=== PATIENT | female | born 1955 | race Caucasian/White ===

== ENCOUNTER 2016-09-03 14:38 | Emergency (ER) | payer MEDICAID ==
--- NOTE | 2016-09-03 14:54 | EDPHY ---
H & P Time Seen by Provider: 09/03/16 14:45 Constitutional: Initial Vital Signs Temperature (C) 37.2 C 09/03/16 14:50 Heart Rate 102 H 09/03/16 14:50 Respiratory Rate 22 H 09/03/16 14:50 Blood Pressure 147/104 H 09/03/16 14:50 O2 Sat (%) 98 09/03/16 14:50 O2 Delivery Mode Room Air O2 (L/minute) 2 Allergies/Adverse Reactions: benztropine [From Cogentin] Allergy (Verified 09/03/16 14:46) codeine Allergy (Verified 09/03/16 14:46) iodine Allergy (Verified 09/03/16 14:46) morphine Allergy (Verified 09/03/16 14:46) Penicillins Allergy (Verified 09/03/16 14:46) Sulfa (Sulfonamide Antibiotics) Allergy (Verified 09/03/16 14:46) Home Medications: Medication Instructions Recorded Albuterol 09/03/16 Albuterol [Proventil Inhaler] 1 - 2 puffs IH Q4 #1 mdi 09/03/16 Aspirin 325 mg (*) 09/03/16 Atorvastatin Calcium 09/03/16 Combivent Respimat Inhal [place](*) 09/03/16 Cymbalta 09/03/16 FOLIC ACID 09/03/16 Hydrocodone Bit/Acetaminophen 09/03/16 LORazepam 09/03/16 Lipitor 09/03/16 MAGNESIUM 09/03/16 Metoprolol Succinate 09/03/16 Seroquel 09/03/16 Symbicort 160-4.5 Mcg Inh (*) 09/03/16 predniSONE 40 mg PO DAILY #10 tab 09/03/16 Medical Decision Making - Diagnostics Imaging Results: Imaging Impressions Chest X-Ray 09/03/16 15:03 Impression: 1. No active cardiopulmonary disease seen. 2. Hyperexpanded lungs suggestive of mild COPD. Knee X-Ray 09/03/16 15:04 Impression: Normal left knee series. Imaging: Discussed imaging studies w/ call center associate Radiologist, I viewed and interpreted images myself ED Course/Re-evaluation: CHIEF COMPLAINT: Dyspnea HISTORY OF PRESENT ILLNESS: The patient is a 60 y/o female, with a history of COPD, complaining of worsening dyspnea today with exertion. She says her chronic conditions are generally managed by hospitalists and her most recent admission was at [facility] ([place], [place]). She tapered off a 2-month course of prednisone as well as antibiotics week ago. Today, she was playing with children and began to feel more out of breath than normal. She used her nebulizer without improvement so she went to use her O2, but found her tank was empty. She called a nursing line and was instructed to call 911 for help. EMS reports she was 95% on room air for them. She believes she still has a respiratory infection, but has been too weak and short of breath to even cough. She also notes she fell last night and her left knee is still hurting. She is able to walk, but with pain. REVIEW OF SYSTEMS: A 10 point review of systems was performed and is negative with the exception of the elements mentioned in the history of present illness. PHYSICAL EXAM: HR, BP, O2 Sat, RR. Temp noted General Appearance: Alert, well hydrated, Julio Cesar appearance, appropriate, and non-toxic appearing. Head: Atraumatic without scalp tenderness or obvious injury Eyes: Pupils equal, round, reactive to light and accommodation, EOMI, no trauma , no injection. Nose: Atraumatic, no rhinorrhea, clear. Throat: mucus membranes moist. Neck: Supple, nontender, no lymphadenopathy. Respiratory: Lungs very tight and diminished in all villanueva. Slight expiratory wheezing. Cardiovascular: Regular rate and rhythm, no murmurs, rubs, or gallops. Good capillary refill all extremities. Gastrointestinal: Abdomen is soft, nontender, non-distended, no masses, no rebound, no guarding, no peritoneal signs. Musculoskeletal: Normal active ROM of all extremities, atraumatic. Neurological: Alert, appropriate, and interactive. Nonfocal neuro exam. Skin: No rashes, good turgor, no nodules on palpation. Ecchymosis to extremities. Abrasion left knee. Past medical history: COPD, [employer] supplies O2 and usually uses 3LPM at night or with exertion. Past surgical history: Denies Family history: Noncontributory Social history: Currently staying in safe house, recently in [place]. PCP: Concepción Baldwin in [place] DIAGNOSTICS/PROCEDURES/CRITICAL CARE TIME: The 12 lead EKG was interpreted by myself. Sinus rhythm rate 99. See hard copy and/or "tracemaster" electronic copy for interpretation. Chest x-ray: COPD. No infiltrate. Left knee x-ray: Negative for fracture. DIFFERENTIAL DIAGNOSIS: The differential diagnosis for the patient's shortness of breath and hypoxemia included but was not limited to pneumonia, myocardial infarction, acute mountain sickness, high altitude pulmonary edema, congestive heart failure, and pulmonary embolus. MEDICAL DECISION MAKING: This is a 60 y/o female with a history of COPD and long-term prednisone use who presents with acute COPD exacerbation. She has some complicating social situation as she is currently living in a safe house and does not seem to have a regular physician that monitors her COPD. Plan for IV, labs, chest x-ray, knee x-ray, and symptom management. Duo neb, Heliox neb, 10mg IV Decadron administered. 1545: Reassessed patient and discussed work up thus far. Chest x-ray shows COPD. EKG unremarkable. Knee x-ray unremarkable. She is feeling improved while on Heliox neb and smiling. She is moving air well on repeat lung exam. Will continue to monitor for improvement. 1620: Patient is 88% on room air. Will monitor for improvement in hypoxemia and work on procuring outpatient O2 supplies for her. Staff has been able to arrange home O2 for the patient. She is feeling improved and ready to go home. She is saturating at 99% on a few LPM. She feels safe to go home on continuous O2 until pulmonology follow up. She understands she needs to follow up with pulmonology without fail next week. We will resume her prednisone course and albuterol inhaler as well. Long-term, I believe this patient needs to be on inhaled steroids rather than so many oral steroids to better manage her COPD. - Data Points Laboratory Results: Laboratory Results 09/03/16 15:41 09/03/16 15:41 09/03/16 09/03/16 15:41 15:41 WBC 18.04 10^3/uL H 10^3/uL (3.80-9.50) RBC 3.94 10^6/uL L 10^6/uL (4.18-5.33) Hgb 12.2 g/dL L g/dL (12.6-16.3) Hct 37.5 % L % (38.0-47.0) MCV 95.2 fL fL (81.5-99.8) MCH 31.0 pg pg (27.9-34.1) MCHC 32.5 g/dL g/dL (32.4-36.7) RDW 13.1 % % (11.5-15.2) Plt Count 267 10^3/uL 10^3/uL (150-400) MPV 9.5 fL fL (8.7-11.7) Neut % (Auto) 69.2 % % (39.3-74.2) Lymph % (Auto) 21.8 % % (15.0-45.0) [place] % (Auto) 6.7 % % (4.5-13.0) Eos % (Auto) 0.6 % % (0.6-7.6) Baso % (Auto) 0.5 % % (0.3-1.7) Nucleat RBC Rel Count 0.0 % % (0.0-0.2) Absolute Neuts (auto) 12.49 10^3/uL H 10^3/uL (1.70-6.50) Absolute Lymphs (auto) 3.94 10^3/uL H 10^3/uL (1.00-3.00) Absolute Monos (auto) 1.21 10^3/uL H 10^3/uL (0.30-0.80) Absolute Eos (auto) 0.10 10^3/uL 10^3/uL (0.03-0.40) Absolute Basos (auto) 0.09 10^3/uL 10^3/uL (0.02-0.10) Absolute Nucleated RBC 0.00 10^3/uL 10^3/uL (0-0.01) Immature Gran % 1.2 % H % (0.0-1.1) Immature Gran # 0.21 10^3/uL H 10^3/uL (0.00-0.10) Sodium 138 mEq/L mEq/L (134-144) Potassium 4.3 mEq/L mEq/L (3.5-5.2) Chloride 101 mEq/L mEq/L (97-110) Carbon Dioxide 25 mEq/l mEq/l (22-31) Anion Gap 12 mEq/L mEq/L (8-16) BUN 16 mg/dL mg/dL (7-23) Creatinine 0.9 mg/dL mg/dL (0.6-1.0) Estimated GFR > 60 Glucose 101 mg/dL H mg/dL (70-100) Calcium 9.1 mg/dL mg/dL (8.5-10.4) Troponin I < 0.012 ng/mL ng/mL (0-0.034) NT-Pro-B Natriuret Pep 48 pg/mL pg/mL (0-125) Medications Given: Discontinued Medications Albuterol/Ipratropium (Duoneb) 3 ml IH EDNOW ONE Stop: 09/03/16 15:03 Last Admin: 09/03/16 15:48 Dose: 3 ml Dexamethasone (Decadron Injection) 10 mg IVP EDNOW ONE Stop: 09/03/16 15:07 Last Admin: 09/03/16 15:48 Dose: 10 mg Ketorolac Tromethamine (Toradol) 30 mg IM EDNOW ONE Stop: 09/03/16 15:50 Last Admin: 09/03/16 15:50 Dose: 30 mg Ondansetron HCl (Zofran) 4 mg IVP EDNOW ONE Stop: 09/03/16 15:50 Last Admin: 09/03/16 16:26 Dose: 4 mg Departure - Departure Disposition: Home, Routine, Self-Care Clinical Impression: Chronic obstructive pulmonary disease with acute exacerbation Condition: Good Instructions: Albuterol (By breathing), COPD (Chronic Obstructive Pulmonary Disease) (ED) Additional Instructions: 1. Take prednisone as prescribed. 2. Use albuterol inhaler as prescribed for shortness of breath and cough. 2. Stay on home O2 day and night until follow up with pulmonology. 3. Follow up with Dr. Robins, special forces engineer sergeant, next week without fail. 4. Return to the ED for any worsening of condition. Referrals: Patient,NotPresent [Unknown] - As per Instructions Aditya Robins MD [Medical Doctor] - As per Instructions Prescriptions: Albuterol [Proventil Inhaler] 1 - 2 puffs IH Q4 #1 mdi predniSONE 40 mg PO DAILY #10 tab Report Scribed for: Sheldon Nicole Report Scribed by: Annamarie Egan Date of Report: 09/03/16 Time of Report: 15:15
[2016-09-03 14:55] VITALS: TEMP 99
[2016-09-03] MEDS ORDERED: IPRATROPIUM/ALBUTEROL 3 ML DEYVIAL IH ONE (15:02)
[2016-09-03] MEDS ORDERED: DEXAMETHASONE 10 MG/ML VIAL IVP ONE (15:06)
--- NOTE | 2016-09-03 15:34 | CPEKG ---
Heart Rate: 99 RR Interval: 606 P-R Interval: 136 QRSD Interval: 88 QT Interval: 336 QTC Interval: 432 P Brady: 46 QRS Brady: 44 T Wave Brady: 64 EKG Severity - NORMAL ECG - EKG Impression: SINUS RHYTHM Electronically Signed By: Sheldon Nicole 03-Sep-2016 20:38:36
[2016-09-03] MEDS ORDERED: ONDANSETRON 4 MG/2 ML VIAL IVP ONE (15:49)
[2016-09-03] MEDS ORDERED: KETOROLAC 30 MG/1 ML SDV IM ONE (15:49)
[2016-09-03 15:53] LABS: % IMMATURE GRANULYOCYTES 1.2 % (0.0-1.1); ABSOLUTE IMMATURE GRANULOCYTES 0.21 10^3/uL (0.00-0.10); ADD DIFF? NO; ADD MORPH? NO; ADD SCAN? NO; ATYPICAL LYMPHOCYTE FLAG 0 (0-99); FRAGMENT RBC FLAG 0 (0-99); HEMATOCRIT 37.5 % (38.0-47.0); HEMOGLOBIN 12.2 g/dL (12.6-16.3); LEFT SHIFT FLG 10 (0-99); LIPEMIA HEMOLYSIS FLAG 80 (0-99); MEAN CELL HEMOGLOBIN CONCENTR. 32.5 g/dL (32.4-36.7); MEAN CELL VOLUME 95.2 fL (81.5-99.8); MEAN PLATELET VOLUME 9.5 fL (8.7-11.7); PLATELET CLUMPS FLAG 0 (0-99); PLATELET COUNT 267 10^3/uL (150-400); RED BLOOD CELL COUNT 3.94 10^6/uL (4.18-5.33); RED CELL DISTRIBUTION WIDTH 13.1 % (11.5-15.2)
[2016-09-03 16:02] LABS: ANION GAP 12 mEq/L (8-16); CALCIUM 9.1 mg/dL (8.5-10.4); CARBON DIOXIDE 25 mEq/l (22-31); CHLORIDE 101 mEq/L (97-110); CREATININE 0.9 mg/dL (0.6-1.0); GLOMERULAR FILTRATION RATE > 60; GLUCOSE 101 mg/dL (70-100); POTASSIUM 4.3 mEq/L (3.5-5.2); SODIUM 138 mEq/L (134-144)
[2016-09-03 16:14] LABS: TROPONIN I < 0.012 ng/mL (0-0.034)
[2016-09-03] MEDS ORDERED: IPRATROPIUM/ALBUTEROL 3 ML DEYVIAL ONE (17:00)
[2016-09-03 19:52] VITALS: BP 140/90; PULSE 102; RESP 18; O2SAT 93
== END 2016-09-03 19:51 | disposition home or self-care (01) ==
LOC: EDUNIT#
DX: J44.1 Chronic obstructive pulmonary disease with (acute) exacerbation (principal); Z79.82 Long term (current) use of aspirin
CPT/HCPCS: 96374; J1885; J2405

== ENCOUNTER 2016-09-04 15:48 | Observation (INO) | payer MEDICAID ==
--- NOTE | 2016-09-04 16:04 | EDPHY ---
H & P Time Seen by Provider: 09/04/16 15:48 HPI/ROS: CHIEF COMPLAINT: The shortness of breath HISTORY OF PRESENT ILLNESS: The patient is a 60-year-old female who presents to the emergency department with shortness of breath. Patient has a history of COPD and coronary artery disease with previous NV. The patient states she was having shortness of breath yesterday. She was seen in the emergency department and discharged home. There is post to deliver oxygen to her house but it never came. She smoked a cigarette earlier today and then developed shortness of breath. She felt tight and noted significant wheezing. She took 2 inhaler treatments with no relief. EMS was called. EMS found the patient with shortness of breath and poor air movement. They treated the patient with a DuoNeb followed by an albuterol neb. She was given Solu-Medrol 125 mg IV. She was placed on CPAP. Patient states that she feels better on CPAP. She denies fevers or chills. She has had a mild nonproductive cough. No leg pain or swelling. No chest pain. REVIEW OF SYSTEMS: My complete review of systems is negative except as mentioned in the HPI. Past Medical/Surgical History: Includes COPD, ACS, acute NV Smoking Status: Former smoker Physical Exam: Vitals noted GENERAL: Moderate acute distress, alert. CPAP in place. Obese. HEENT: Eyes normal to inspection, normal pharynx, no signs of dehydration. NECK: No thyromegaly, no lymphadenopathy, supple. RESPIRATORY: Poor air movement. Minimal wheeze. No rales or rhonchi. Positive accessory muscle use. CPAP in place. CVS: Regular rate and rhythm, no rubs, murmurs, or gallops. ABDOMEN: Soft, nontender, nondistended, no organomegaly. BACK: Normal to inspection, no CVA tenderness. SKIN: Normal color, no rash, warm, dry. No pallor. EXTREMITIES: No pedal edema, no calf tenderness, no Homans sign or cords, no joint swelling. NEURO/PSYCH: Alert and oriented, normal mood and affect, no focal deficits Constitutional: Initial Vital Signs Temperature (C) 36.5 C 09/04/16 15:48 Heart Rate 104 H 09/04/16 15:48 Respiratory Rate 22 H 09/04/16 15:48 Blood Pressure 141/70 H 09/04/16 15:48 O2 Sat (%) 95 09/04/16 15:48 O2 Delivery Mode Room Air Allergies/Adverse Reactions: benztropine [From Cogentin] Allergy (Verified 09/04/16 15:57) codeine Allergy (Verified 09/04/16 15:57) iodine Allergy (Verified 09/04/16 15:57) morphine Allergy (Verified 09/04/16 15:57) Penicillins Allergy (Verified 09/04/16 15:57) Sulfa (Sulfonamide Antibiotics) Allergy (Verified 09/04/16 15:57) Home Medications: Medication Instructions Recorded Albuterol 09/03/16 Albuterol [Proventil Inhaler] 1 - 2 puffs IH Q4 #1 mdi 09/03/16 Aspirin 325 mg (*) 09/03/16 Atorvastatin Calcium 09/03/16 Combivent Respimat Inhal [place](*) 09/03/16 Cymbalta 09/03/16 FOLIC ACID 09/03/16 Hydrocodone Bit/Acetaminophen 09/03/16 LORazepam 09/03/16 Lipitor 09/03/16 MAGNESIUM 09/03/16 Metoprolol Succinate 09/03/16 Seroquel 09/03/16 Symbicort 160-4.5 Mcg Inh (*) 09/03/16 predniSONE 40 mg PO DAILY #10 tab 09/03/16 Medical Decision Making ED Course/Re-evaluation: In the emergency department I met EMS on arrival. I took report from the building maintenance technician. My initial evaluation of the patient she stated the CPAP improved her symptoms. She was kept on CPAP during my initial evaluation. RT was paged. Upon arrival the patient was placed on BiPAP. She was continued on albuterol neb. 16 15: The patient is tolerating BiPAP well. She states she is feeling better. Her BiPAP is set at 12/6 at 45% O2 Sinus rhythm at 97. Normal axis. Normal intervals. No ST or T-wave abnormality. I reviewed the patient's previous medical record and visit from yesterday. 16 30: I reviewed the patient's laboratory studies. Her white count was elevated at 25. She is anemic with hematocrit of 36. Chemistry is unremarkable. I rechecked the patient. Patient was tolerating BiPAP well. Rechecked the patient on numerous occasions. She was tolerating BiPAP well. 17 30: I have discussion with the patient, we will attempt a trial off BiPAP. I discussed the case with Dr. Shay Arora for admission. Differential Diagnosis: My differential includes but is not limited to COPD exacerbation, asthma exacerbation, CHF, ACS, acute NV, pneumonia, pneumothorax, bronchitis Critical Care Time: Patient required 35 minutes of critical care time. This was exclusive of any unbundled procedure. This was due to frequent rechecks, need for bipap, time spent at the bedside. - Data Points Laboratory Results: Laboratory Results 09/04/16 16:05 09/04/16 16:05 09/04/16 09/04/16 16:05 16:05 WBC 25.75 10^3/uL H 10^3/uL (3.80-9.50) RBC 3.82 10^6/uL L 10^6/uL (4.18-5.33) Hgb 11.9 g/dL L g/dL (12.6-16.3) Hct 36.4 % L % (38.0-47.0) MCV 95.3 fL fL (81.5-99.8) MCH 31.2 pg pg (27.9-34.1) MCHC 32.7 g/dL g/dL (32.4-36.7) RDW 13.3 % % (11.5-15.2) Plt Count 274 10^3/uL 10^3/uL (150-400) MPV 9.6 fL fL (8.7-11.7) Neut % (Auto) 86.3 % H % (39.3-74.2) Lymph % (Auto) 7.7 % L % (15.0-45.0) [place] % (Auto) 4.8 % % (4.5-13.0) Eos % (Auto) 0.0 % L % (0.6-7.6) Baso % (Auto) 0.2 % L % (0.3-1.7) Nucleat RBC Rel Count 0.0 % % (0.0-0.2) Absolute Neuts (auto) 22.25 10^3/uL H 10^3/uL (1.70-6.50) Absolute Lymphs (auto) 1.97 10^3/uL 10^3/uL (1.00-3.00) Absolute Monos (auto) 1.23 10^3/uL H 10^3/uL (0.30-0.80) Absolute Eos (auto) 0.00 10^3/uL L 10^3/uL (0.03-0.40) Absolute Basos (auto) 0.04 10^3/uL 10^3/uL (0.02-0.10) Absolute Nucleated RBC 0.00 10^3/uL 10^3/uL (0-0.01) Immature Gran % 1.0 % % (0.0-1.1) Immature Gran # 0.26 10^3/uL H 10^3/uL (0.00-0.10) Sodium 140 mEq/L mEq/L (134-144) Potassium 5.2 mEq/L mEq/L (3.5-5.2) Chloride 105 mEq/L mEq/L (97-110) Carbon Dioxide 23 mEq/l mEq/l (22-31) Anion Gap 12 mEq/L mEq/L (8-16) BUN 22 mg/dL mg/dL (7-23) Creatinine 1.0 mg/dL mg/dL (0.6-1.0) Estimated GFR 57 Glucose 146 mg/dL H mg/dL (70-100) Calcium 9.3 mg/dL mg/dL (8.5-10.4) Troponin I < 0.012 ng/mL ng/mL (0-0.034) NT-Pro-B Natriuret Pep 204 pg/mL H pg/mL (0-125) Departure - Departure Disposition: [facility] Inpatient Acute Clinical Impression: Shortness of breath, COPD exacerbation, Leukocytosis Condition: Good Referrals: Patient,NotPresent [Unknown] - As per Instructions
--- NOTE | 2016-09-04 16:11 | CPEKG ---
Heart Rate: 97 RR Interval: 619 P-R Interval: 136 QRSD Interval: 80 QT Interval: 348 QTC Interval: 442 P Fontana: 47 QRS [place]: 45 T Wave [place]: 64 EKG Severity - NORMAL ECG - EKG Impression: SINUS RHYTHM Electronically Signed By: Nidia No 04-Sep-2016 22:31:52
[2016-09-04 16:16] LABS: ABSOLUTE IMMATURE GRANULOCYTES 0.26 10^3/uL (0.00-0.10); ADD DIFF? NO; ADD MORPH? NO; ADD SCAN? NO; ATYPICAL LYMPHOCYTE FLAG 0 (0-99); FRAGMENT RBC FLAG 0 (0-99); HEMATOCRIT 36.4 % (38.0-47.0); HEMOGLOBIN 11.9 g/dL (12.6-16.3); LEFT SHIFT FLG 0 (0-99); LIPEMIA HEMOLYSIS FLAG 80 (0-99); MEAN CELL HEMOGLOBIN 31.2 pg (27.9-34.1); MEAN CELL HEMOGLOBIN CONCENTR. 32.7 g/dL (32.4-36.7); MEAN CELL VOLUME 95.3 fL (81.5-99.8); MEAN PLATELET VOLUME 9.6 fL (8.7-11.7); PLATELET CLUMPS FLAG 0 (0-99); PLATELET COUNT 274 10^3/uL (150-400); RED BLOOD CELL COUNT 3.82 10^6/uL (4.18-5.33); RED CELL DISTRIBUTION WIDTH 13.3 % (11.5-15.2)
[2016-09-04] MEDS ORDERED: ALBUTEROL 3 ML DEYVIAL ONE (16:21)
[2016-09-04 16:29] LABS: ANION GAP 12 mEq/L (8-16); CALCIUM 9.3 mg/dL (8.5-10.4); CARBON DIOXIDE 23 mEq/l (22-31); CHLORIDE 105 mEq/L (97-110); GLOMERULAR FILTRATION RATE 57; GLUCOSE 146 mg/dL (70-100); POTASSIUM 5.2 mEq/L (3.5-5.2); SODIUM 140 mEq/L (134-144)
[2016-09-04 16:41] LABS: TROPONIN I < 0.012 ng/mL (0-0.034)
[2016-09-04] MEDS ORDERED: ACETAMINOPHEN 325 MG TAB PO PRN (18:10)
[2016-09-04] MEDS ORDERED: ONDANSETRON 4 MG/2 ML VIAL IVP PRN (18:10)
--- NOTE | 2016-09-04 19:09 | GHP ---
[f rep st] HISTORY AND PHYSICAL DATE OF ADMISSION: 09/04/2016 CHIEF COMPLAINT: Shortness of breath and wheezing. HPI: This is a 60-year-old female with history of asthma and COPD, is seen at [facility] Emergency Department on 09/03/2016, where she was diagnosed with acute COPD exacerbation, and ultimately discharge with home oxygen, as well as prednisone and albuterol. This morning she was doing well up until she smoked a cigarette and became extremely winded and "could not catch her breath." She did 2 nebulizer treatments without improvement and then called 911, where she was transported to the Emergency Department. The patient is currently residing at the [facility]. She had quit smoking for 6 months, but relapsed yesterday where she smoked a half a cigarette , and then had another 1 cigarette today. She denies any fevers, but has had some chills. She reports some nausea, but no vomiting. She does have some dull chest pressure that radiates to her back that has currently resolved. The pain is nonexertional. PAST MEDICAL HISTORY: 1. Hypertension. 2. Obstructive sleep apnea. 3. Gastroesophageal reflux disease. 4. Hiatal hernia. 5. Rheumatoid arthritis. 6. COPD/asthma. PAST SURGICAL HISTORY: 1. Hysterectomy. 2. Cholecystectomy. 3. Tonsillectomy and adenoidectomy. HOME MEDICATIONS: Reviewed, refer to [facility] for details. ALLERGIES: Cogentin, codeine, iodine, morphine, penicillin and sulfa. SOCIAL HISTORY: The patient is a former smoker, but once again did smoke a cigarette today. She denies any alcohol or illicit drug use. She is currently living at the [facility]. FAMILY HISTORY: Reviewed and noncontributory. REVIEW OF SYSTEMS: Comprehensive 10-point review of systems was done and was negative except for as mentioned in the HPI. PHYSICAL EXAM: VITAL SIGNS: Blood pressure 132/99, pulse of 96, respiratory rate 16, O2 saturation 91% on room air. Temperature afebrile. GENERAL: No acute distress, but does appear uncomfortable. HEAD: Normocephalic, atraumatic. Eyes are PERRLA. Sclerae anicteric. MOUTH: Moist mucous membranes. NECK: Supple. No lymphadenopathy. CARDIOVASCULAR: S1, S2. No JVD. No lower extremity edema. PULMONARY: Diminished breath sounds bilaterally with diffuse expiratory wheeze. She is able to speak in full sentences. There is no dullness to percussion. There is no rhonchi or rales. ABDOMEN: Soft, nontender, nondistended. No guarding or rebound tenderness. Normoactive bowel sounds. EXTREMITIES: No clubbing or cyanosis. NEURO: Cranial nerves 2-12 grossly intact. No focal motor or sensory deficits. SKIN: Clear. No rashes. DIAGNOSTICS: WBC is 25.75, hemoglobin 11.9, hematocrit 36.4, platelets 274. Sodium 140, potassium 5.2, chloride 105, CO2 23, BUN 22, creatinine 1, glucose 146. Troponin was negative. BNP mildly elevated 204. Chest x-ray, which has not be not been formally read by the radiologist as of yet, but preliminary read by me shows normal heart size without effusion or infiltrates. There is some mild peribronchial thickening. EKG, which I visualized and personally interpreted, sinus rhythm, rate 97 beats per minute. No ST-segment elevation or depression. ASSESSMENT AND PLAN: This is a 60-year-old female with history of tobacco use, and chronic obstructive pulmonary disease, and asthma, who had been on prednisone for 2 months up until recently, then was restarted on a prednisone taper due to COPD exacerbation diagnosis yesterday, presenting with: 1. Acute respiratory failure with wheezing and breathlessness. Plan: The patient will be placed on observation, where we will continue prednisone and bronchodilator treatments. We will defer starting antibiotics at this time. I suspect a component of the patient's breathlessness could be related to anxiety and her current living situation. 2. Chest pain. It sounds atypical for cardiac and most likely due to GERD, given her history of GERD and hiatal hernia. Plan: We will continue the patient on PPIs given her prednisone treatment, and we will cycle troponins. It would be reasonable for her to have outpatient stress test once her COPD is stabilized. 3. Leukocytosis, likely due to white blood cell demargination in the setting of steroid use. Plan: Monitor for signs and symptoms of infection. 4. Elevated basic natriuretic peptide without signs of heart failure on EKG. Plan: We will obtain a D-dimer, and if positive we will consider CT angiography of the chest to rule out PE as a cause of her breathlessness and chest pain. Once again, the patient will be placed on observation. I suspect if her breathing continues to improve, she can likely be discharged in the morning. ADDENDUM D-dimer elevated at 1.29 will order CTA of the chest to evaluate for PE /[id number]/MODL MTDD
[2016-09-04] MEDS ORDERED: QUEtiapine FUMARATE 25 MG TAB PO PRN (19:55)
[2016-09-04] MEDS ORDERED: methylPREDNISolone SOD SUCC 125 MG/2 ML VIAL IVP ONE (20:06)
[2016-09-04] MEDS: PANTOPRAZOLE SODIUM 40 MG TAB PO SCH (20:32)
[2016-09-04] MEDS: traMADol 50 MG TAB PO PRN (20:37)
[2016-09-04] MEDS: PROMETHAZINE HCL 25 MG/ML INJ IVP PRN (20:37)
[2016-09-04] MEDS ORDERED: IOPAMIDOL (ISOVUE 370) 100 ML BTL IV ONE (20:47)
[2016-09-04] MEDS ORDERED: DULoxetine 30 MG CAP PO SCH (21:00)
[2016-09-04] MEDS ORDERED: QUEtiapine FUMARATE 100 MG TAB PO SCH (21:00)
[2016-09-04] MEDS: GABAPENTIN 300 MG CAP PO SCH (21:34)
[2016-09-04] MEDS ORDERED: IPRATROPIUM/ALBUTEROL 3 ML DEYVIAL ONE (21:36)
[2016-09-04] MEDS: IPRATROPIUM/ALBUTEROL 3 ML DEYVIAL IH PRN (21:40)
[2016-09-04] MEDS: BUDESONIDE/FORMOTEROL 160/4.5 60 PUFFS/MDI IH SCH (21:41)
[2016-09-05] MEDS ORDERED: QUEtiapine FUMARATE 100 MG TAB PO SCH
[2016-09-05] MEDS ORDERED: IPRATROPIUM/ALBUTEROL 3 ML DEYVIAL IH SCH
[2016-09-05] MEDS ORDERED: QUEtiapine FUMARATE 25 MG TAB PO SCH
[2016-09-05] MEDS: LORazepam 1 MG TAB PO PRN ×2 (02:00→14:05)
[2016-09-05 05:54] LABS: ADD DIFF? YES; ADD MORPH? NO; ADD SCAN? NO; ATYPICAL LYMPHOCYTE FLAG 0 (0-99); FRAGMENT RBC FLAG 0 (0-99); HEMATOCRIT 33.4 % (38.0-47.0); HEMOGLOBIN 10.7 g/dL (12.6-16.3); LEFT SHIFT FLG 10 (0-99); LIPEMIA HEMOLYSIS FLAG 80 (0-99); MEAN CELL VOLUME 96.8 fL (81.5-99.8); MEAN PLATELET VOLUME 9.8 fL (8.7-11.7); PLATELET CLUMPS FLAG 0 (0-99); PLATELET COUNT 233 10^3/uL (150-400); RED BLOOD CELL COUNT 3.45 10^6/uL (4.18-5.33); RED CELL DISTRIBUTION WIDTH 13.4 % (11.5-15.2)
[2016-09-05] MEDS: IPRATROPIUM/ALBUTEROL 3 ML DEYVIAL IH PRN ×2 (06:02→10:53)
[2016-09-05 06:12] LABS: ANION GAP 8 mEq/L (8-16); CALCIUM 8.8 mg/dL (8.5-10.4); CARBON DIOXIDE 25 mEq/l (22-31); CHLORIDE 105 mEq/L (97-110); CREATININE 0.8 mg/dL (0.6-1.0); GLOMERULAR FILTRATION RATE > 60; GLUCOSE 154 mg/dL (70-100); POTASSIUM 4.7 mEq/L (3.5-5.2); SODIUM 138 mEq/L (134-144)
[2016-09-05] MEDS: PROMETHAZINE HCL 25 MG/ML INJ IVP PRN (06:19)
[2016-09-05 06:21] LABS: TROPONIN I < 0.012 ng/mL (0-0.034)
[2016-09-05 06:34] LABS: PLATELET ESTIMATE ADEQUATE (ADEQ)
[2016-09-05] MEDS: GABAPENTIN 300 MG CAP PO SCH (07:50)
[2016-09-05] MEDS: PANTOPRAZOLE SODIUM 40 MG TAB PO SCH (07:51)
[2016-09-05] MEDS: BUDESONIDE/FORMOTEROL 160/4.5 60 PUFFS/MDI IH SCH (07:52)
[2016-09-05] MEDS ORDERED: Herbals/Supplements -Info Only PO SCH (09:00)
[2016-09-05] MEDS ORDERED: ASPIRIN EC 325 MG TAB PO SCH (09:00)
[2016-09-05] MEDS ORDERED: ATORVASTATIN CALCIUM 20 MG TAB PO SCH (09:00)
[2016-09-05] MEDS ORDERED: predniSONE 20 MG TAB PO SCH ×2 (09:00)
[2016-09-05] MEDS ORDERED: METOPROLOL SUCCINATE XR 25 MG TAB PO SCH (09:00)
[2016-09-05] MEDS ORDERED: ENOXAPARIN 40 MG/0.4 ML SYR SC SCH (09:00)
[2016-09-05 10:07] VITALS: BP 100/63; PULSE 90; TEMP 98.4
--- NOTE | 2016-09-05 10:19 | HOSPPROG ---
Hospitalist Progress Note Objective: Vital Signs Temp Pulse Resp BP Pulse Ox 36.6 C 91 19 112/76 93 09/05/16 05:36 09/05/16 05:36 09/05/16 05:36 09/05/16 05:36 09/05/16 05:36 Laboratory Results 09/05/16 05:32 09/05/16 05:32 09/04/16 09/05/16 09/06/16 05:59 05:59 05:59 Intake Total 100 Output Total 875 Balance -775 ICD10 Worksheet Patient Problems: Problems Problem Status Onset Shortness of breath Acute COPD exacerbation Acute Leukocytosis Acute
[2016-09-05] MEDS: traMADol 50 MG TAB PO PRN (10:24)
[2016-09-05 11:03] VITALS: RESP 16; O2SAT 95
--- NOTE | 2016-09-06 09:14 | GDS ---
[f rep st] DISCHARGE SUMMARY DISCHARGE DIAGNOSES: 1. Acute respiratory failure. 2. Chronic obstructive pulmonary disease exacerbation. 3. Leukocytosis. 4. Elevated basic natriuretic peptide. STUDIES AND PROCEDURES DONE: CT angio of the chest. PHYSICAL EXAMINATION: GENERAL: The patient is alert. VITAL SIGNS: Afebrile at 36.9, pulse is 90, respiratory rate 20, blood pressure is 110/63, she is saturating 93% on room air. I have seen and evaluated the patient on the day of discharge. HOSPITAL COURSE: 1. The patient is a 60-year-old female who presented to the hospital with complaints of shortness o f breath and wheezing. She was evaluated and diagnosed with COPD exacerbation. During this hospita lization, she has responded well to oral steroids as well as nebulized breathing treatments. She wi ll continue these in the outpatient setting. 2. Tobacco cessation. I have educated the patient with regard to the need to discontinue her tobac co use. She does understand this. 3. Acute respiratory failure. This has resolved. During her admission, she has not required suppl emental oxygen, although she does have supplemental oxygen already arranged in the outpatient [facility]. 4. Leukocytosis. The etiology of this is unclear; however, she has been on steroid use recently. She did not have any signs of infection; however, I recommended that she follow up in the outpatient setting to continue to evaluate her leukocytosis. She is in agreement with this plan. 5. Likely obstructive sleep apnea. The patient will follow with her primary care physician in the outpatient setting. DISPOSITION: The patient will be discharged to return to the [facility], where she was previously r [facility]. She has been provided prednisone as well as DuoNeb at the time of disposition. She has al so been provided multiple prescriptions that she will fill through the [facility]. I have discussed the patient's disposition with Case Management. I have expressed to the patient that it is pertine nt for her to follow up in the outpatient setting regarding her leukocytosis as well as her respirat ory condition. She does understand this and is in agreement with this plan. /[id number]/MODL
== END 2016-09-05 14:35 | disposition home or self-care (01) ==
LOC: EDUNIT# → EEVIPCON 17:40 → F3E 18:22
PROVIDERS: ADMIT Family Medicine; ATTEND Family Medicine
DX: J44.1 Chronic obstructive pulmonary disease with (acute) exacerbation (principal); J96.00 Acute respiratory failure, unspecified whether with hypoxia or hypercapnia; K21.9 Gastro-esophageal reflux disease without esophagitis; D72.829 Elevated white blood cell count, unspecified; F17.210 Nicotine dependence, cigarettes, uncomplicated; I10 Essential (primary) hypertension; M06.9 Rheumatoid arthritis, unspecified; I25.2 Old myocardial infarction
CPT/HCPCS: 71010; 71275; 93005; G0378; J1200; J1650; J2405; J2550; J7512; Q9967

== ENCOUNTER 2016-09-07 12:52 | Inpatient (IN) | payer MEDICAID ==
--- NOTE | 2016-09-07 13:23 | EDPHY ---
H & P Stated Complaint: po9ss COPD exerbation/Asthma attack. was seen 1.5 days ago for the same. Time Seen by Provider: 09/07/16 13:05 HPI/ROS: CHIEF COMPLAINT: Shortness of breath chest pressure HISTORY OF PRESENT ILLNESS: This is a 60-year-old female presenting to the emergency department with complaints of shortness of breath chest pressure onset 1 hour prior to arrival, patient also reported some generalized weakness, nausea with 2 days of intermittent diarrhea and chills. Patient states she is in a care home house at this time she was discharged with set up for oxygen to a care home house, patient states she was unable to to get the appropriate oxygen that she needed. seen here on 09/03/2016 for similar symptoms, and also sounds like there is a component of social environment stressors that can be adding to her symptoms of anxiety. REVIEW OF SYSTEMS: Constitutional: No fever. Chills generalized weakness Eyes: No discharge. ENT: No sore throat. Cardiovascular: No chest pain, no palpitations. Chest pressure Respiratory: No cough. shortness of breath. Gastrointestinal: No abdominal pain, no vomiting. Nausea, intermittent diarrhea Genitourinary: No dysuria Musculoskeletal: No back pain. Skin: No rashes. Neurological: No headache. Source: Patient, Old records - Personal History Current Tetanus/Diphtheria Vaccine: Yes Current Tetanus Diphtheria and Acellular Pertussis (TDAP): Yes - Medical/Surgical History Hx Asthma: Yes Hx Chronic Respiratory Disease: Yes Hx Diabetes: No Hx Cardiac Disease: Yes Hx Renal Disease: No Hx Cirrhosis: No Hx Alcoholism: No Hx HIV/AIDS: No Hx Splenectomy or Spleen Trauma: No Other PMH: OR, CAD, COPD, asthma, home O2 (apria), GERD, RA, SHARON, hiatal hernia , crohns, neuropathy, hysterectomy, choly, t&a - Social History Smoking Status: Former smoker - Physical Exam Exam: General Appearance: Alert, no distress. Eyes: Pupils equal and round no pallor or injection. ENT, Mouth: Mucous membranes dry Respiratory: There are no retractions, diffuse expiratory wheezing with decreased at the bases Cardiovascular: Sinus tachycardia on monitor. No murmur no gallop Gastrointestinal: Abdomen is soft and nontender, no masses, bowel sounds normal. Neurological: No focal deficits Skin: Warm and dry, no rashes. Musculoskeletal: Neck is supple nontender. Extremities: symmetrical, full range of motion. Multiple bruises noted to bilateral upper extremity bilateral lower extremity. no lower extremity pitting edema Psychiatric: Patient is oriented X 3, there is no agitation. Constitutional: Initial Vital Signs Temperature (C) 37 C 09/07/16 12:52 Heart Rate 134 H 09/07/16 12:52 Respiratory Rate 16 09/07/16 12:52 Blood Pressure 180/108 H 09/07/16 12:52 O2 Sat (%) 98 09/07/16 12:52 O2 Delivery Mode Nasal Cannula O2 (L/minute) 2 Allergies/Adverse Reactions: benztropine [From Cogentin] Allergy (Verified 09/04/16 15:57) codeine Allergy (Verified 09/04/16 15:57) iodine Allergy (Verified 09/04/16 15:57) morphine Allergy (Verified 09/04/16 15:57) Penicillins Allergy (Verified 09/04/16 15:57) Sulfa (Sulfonamide Antibiotics) Allergy (Verified 09/04/16 15:57) Home Medications: Medication Instructions Recorded Aspirin EC [Aspirin EC 325 mg (*)] 325 mg PO DAILY 09/03/16 Atorvastatin Calcium [Lipitor 20 20 mg PO DAILY 09/03/16 mg (*)] Budesonide/Formoterol 160/4.5 1 puffs IH BID 09/03/16 [Symbicort 160-4.5 Mcg Inh (*)] DULoxetine [Cymbalta 30 MG (*)] 90 mg PO HS 09/03/16 LORazepam [Ativan (*)] 1 mg PO BID PRN 09/03/16 Metoprolol Succinate 25 mg PO DAILY 09/03/16 Gabapentin [Neurontin 300 MG (*)] 1,200 mg PO TID 09/04/16 Herbals/Supplements -Info Only 1 ea PO DAILY 09/04/16 Tiotropium Inhaler [Spiriva 1 inh IH DAILY 09/04/16 Inhaler (RX)] Albuterol [Proventil Inhaler HFA 1 - 2 puffs IH Q4 PRN #1 mdi 09/05/16 (*)] Ipratropium/Albuterol [Duoneb (*)] 3 ml IH Q6 PRN #10 deyvial 09/05/16 QUEtiapine FUMARATE [Seroquel 100 100 mg PO HS #5 tab 09/05/16 mg (*)] QUEtiapine FUMARATE [Seroquel 25 25 mg PO Q6 PRN #5 tab 09/05/16 mg (*)] predniSONE 40 mg PO DAILY #10 tablet 09/05/16 Promethazine HCl [Phenergan 12.5mg 12.5 mg MD Q6 PRN 09/07/16 supp (*)] Medical Decision Making ED Course/Re-evaluation: Discussed ED plan of care: surveillance system monitor, EKG, CBC, CMP, BNP, troponin. Reviewed old medical records also discussed this patient with Dr. Nicole 1505: spoke with Dr. Barrios patient to be admitted and COPD exacerbation, outpatient treatment failure 1515: Discussed plan to admit with patient she agreed. Differential Diagnosis: Other differential diagnosis considered but not limited to pneumonia, electrolyte abnormality, and CHF exacerbation - Data Points Laboratory Results: Laboratory Results 09/07/16 13:40 09/07/16 13:40 09/07/16 09/07/16 13:40 13:40 WBC 13.97 10^3/uL H D 10^3/uL (3.80-9.50) RBC 3.94 10^6/uL L 10^6/uL (4.18-5.33) Hgb 12.3 g/dL L g/dL (12.6-16.3) Hct 37.0 % L % (38.0-47.0) MCV 93.9 fL fL (81.5-99.8) MCH 31.2 pg pg (27.9-34.1) MCHC 33.2 g/dL g/dL (32.4-36.7) RDW 13.2 % % (11.5-15.2) Plt Count 254 10^3/uL 10^3/uL (150-400) MPV 9.4 fL fL (8.7-11.7) Neut % (Auto) 75.7 % H % (39.3-74.2) Lymph % (Auto) 15.8 % % (15.0-45.0) [place] % (Auto) 6.7 % % (4.5-13.0) Eos % (Auto) 0.6 % % (0.6-7.6) Baso % (Auto) 0.3 % % (0.3-1.7) Nucleat RBC Rel Count 0.0 % % (0.0-0.2) Absolute Neuts (auto) 10.57 10^3/uL H 10^3/uL (1.70-6.50) Absolute Lymphs (auto) 2.21 10^3/uL 10^3/uL (1.00-3.00) Absolute Monos (auto) 0.94 10^3/uL H 10^3/uL (0.30-0.80) Absolute Eos (auto) 0.09 10^3/uL 10^3/uL (0.03-0.40) Absolute Basos (auto) 0.04 10^3/uL 10^3/uL (0.02-0.10) Absolute Nucleated RBC 0.00 10^3/uL 10^3/uL (0-0.01) Immature Gran % 0.9 % % (0.0-1.1) Immature Gran # 0.12 10^3/uL H 10^3/uL (0.00-0.10) Sodium 139 mEq/L mEq/L (134-144) Potassium 3.8 mEq/L mEq/L (3.5-5.2) Chloride 104 mEq/L mEq/L (97-110) Carbon Dioxide 25 mEq/l mEq/l (22-31) Anion Gap 10 mEq/L mEq/L (8-16) BUN 15 mg/dL mg/dL (7-23) Creatinine 0.9 mg/dL mg/dL (0.6-1.0) Estimated GFR > 60 Glucose 132 mg/dL H mg/dL (70-100) Calcium 9.3 mg/dL mg/dL (8.5-10.4) Troponin I < 0.012 ng/mL ng/mL (0-0.034) NT-Pro-B Natriuret Pep 371 pg/mL H pg/mL (0-125) Medications Given: Discontinued Medications Methylprednisolone Sodium Succinate (Solu-Medrol) 125 mg IVP EDNOW ONE Stop: 09/07/16 14:41 Last Admin: 09/07/16 14:48 Dose: 125 mg Ondansetron HCl (Zofran) 4 mg IVP EDNOW ONE Stop: 09/07/16 15:01 Last Admin: 09/07/16 15:00 Dose: 4 mg Departure - Departure Disposition: [facility] Inpatient Acute Clinical Impression: COPD exacerbation, Failure of outpatient treatment Condition: Fair
[2016-09-07 13:49] LABS: % IMMATURE GRANULYOCYTES 0.9 % (0.0-1.1); ABSOLUTE IMMATURE GRANULOCYTES 0.12 10^3/uL (0.00-0.10); ADD DIFF? NO; ADD MORPH? NO; ADD SCAN? NO; ATYPICAL LYMPHOCYTE FLAG 0 (0-99); FRAGMENT RBC FLAG 0 (0-99); HEMOGLOBIN 12.3 g/dL (12.6-16.3); LEFT SHIFT FLG 0 (0-99); LIPEMIA HEMOLYSIS FLAG 80 (0-99); MEAN CELL HEMOGLOBIN 31.2 pg (27.9-34.1); MEAN CELL HEMOGLOBIN CONCENTR. 33.2 g/dL (32.4-36.7); MEAN CELL VOLUME 93.9 fL (81.5-99.8); MEAN PLATELET VOLUME 9.4 fL (8.7-11.7); PLATELET CLUMPS FLAG 0 (0-99); PLATELET COUNT 254 10^3/uL (150-400); RED BLOOD CELL COUNT 3.94 10^6/uL (4.18-5.33); RED CELL DISTRIBUTION WIDTH 13.2 % (11.5-15.2)
--- NOTE | 2016-09-07 13:56 | CPEKG ---
Heart Rate: 113 RR Interval: 531 P-R Interval: 140 QRSD Interval: 82 QT Interval: 332 QTC Interval: 456 P Oxford: 71 QRS Oxford: -10 T Wave Oxford: 58 EKG Severity - OTHERWISE NORMAL ECG - EKG Impression: SINUS TACHYCARDIA Electronically Signed By: Sheldon Nicole 07-Sep-2016 21:03:46
[2016-09-07 13:58] LABS: ANION GAP 10 mEq/L (8-16); CALCIUM 9.3 mg/dL (8.5-10.4); CARBON DIOXIDE 25 mEq/l (22-31); CHLORIDE 104 mEq/L (97-110); CREATININE 0.9 mg/dL (0.6-1.0); GLOMERULAR FILTRATION RATE > 60; GLUCOSE 132 mg/dL (70-100); POTASSIUM 3.8 mEq/L (3.5-5.2); SODIUM 139 mEq/L (134-144)
[2016-09-07 14:10] LABS: TROPONIN I < 0.012 ng/mL (0-0.034)
[2016-09-07] MEDS ORDERED: methylPREDNISolone SOD SUCC 125 MG/2 ML VIAL IVP ONE (14:40)
[2016-09-07] MEDS ORDERED: ONDANSETRON 4 MG/2 ML VIAL ONE (14:53)
[2016-09-07] MEDS ORDERED: ONDANSETRON 4 MG/2 ML VIAL IVP ONE (15:00)
[2016-09-07] MEDS ORDERED: ACETAMINOPHEN 325 MG TAB PO PRN (15:23)
[2016-09-07] MEDS ORDERED: ALBUTEROL 3 ML DEYVIAL IH PRN (15:23)
--- NOTE | 2016-09-07 15:43 | GHP ---
[f rep st] HISTORY AND PHYSICAL DATE OF ADMISSION: 09/07/2016 CHIEF COMPLAINT: Shortness of breath. HISTORY OF PRESENT ILLNESS: This is a 60-year-old female who was recently discharged a couple days ago. She has a history of COPD and was admitted for COPD exacerbation on September 04, 2016. She was the n discharged on September 05, 2016. She states that she was feeling better, but then last nigh t she had an episode of diarrhea and then vomiting. She said right after the vomiting she began dev eloping significant shortness of breath. She used her DuoNeb a couple of times, this morning had an other episode of vomiting and continued to have shortness of breath, and thus came into the emergenc y department. She still continues to have diarrhea and some nausea, and vomited again today. No si ck contacts that she knows, no fevers or chills. No abdominal pain, no chest pain. No productive c ough. REVIEW OF SYSTEMS: A 10-point review of systems is obtained, other than as stated above is negative . PAST MEDICAL HISTORY: 1. COPD. 2. Hypertension. 3. Obstructive sleep apnea. 4. GERD. 5. Hiatal hernia. 6. Rheumatoid arthritis. PAST SURGICAL HISTORY: Hysterectomy, cholecystectomy, tonsillectomy, adenoidectomy. MEDICATIONS: Medications are reviewed, she did not take her steroids today. SOCIAL HISTORY: Does smoke occasional cigarettes, but has not smoked since she came out of the [facility]. She lives at a [place] safe house. FAMILY HISTORY: Reviewed, noncontributory. PHYSICAL EXAM: VITAL SIGNS: Afebrile, blood pressure is 156/99, heart rate 110, oxygen saturation 95% on 2 L. GENERAL: Patient is well-developed, in no apparent distress. HEENT: Nonicteric scler ae, extraocular movements intact. Moist mucous membranes. Neck: Supple, no thyromegaly. LUNGS: Good effort, markedly decreased breath sounds, some fine expiratory wheezes. CARDIOVASCULAR: Regul ar rate and rhythm, no murmurs or gallops. ABDOMEN: Positive bowel sounds, soft, nontender, nondis tended, no hepatosplenomegaly. EXTREMITIES: No clubbing, cyanosis, or edema. SKIN: Without rash. Warm and intact. NEUROLOGIC: Alert and oriented x3, moving all 4 extremities equally. PSYCH: No rmal affect. LABORATORY DATA: White blood cell count is better at 13, from discharge of 21. Chemistry is normal . A CT scan done 2 days ago personally reviewed and interpreted, there is no pulmonary embolism or bronchitis. ASSESSMENT: This is a 60-year-old female with a chronic obstructive pulmonary disease exacerbation. 1. Chronic obstructive pulmonary disease exacerbation. Since the patient is not taking oral very w ell we will give intravenous steroids overnight, as well as nebulizer treatments and oxygen. 2. I believe the vomiting precipitated another exacerbation. 3. Vomiting and diarrhea. The patient did have an elevated white blood cell count last time, but i t is a little bit better today. We will check a GI pathogen panel. 4. Obstructive sleep apnea. 5. Hypertension. 6. On admission patient will be admitted under full admission status. Case was discussed with the ER physician. Old records are reviewed and summarized in the HPI. /[id number]/MODL
[2016-09-07] MEDS ORDERED: IPRATROPIUM/ALBUTEROL 3 ML DEYVIAL ONE (15:50)
[2016-09-07] MEDS: IPRATROPIUM/ALBUTEROL 3 ML DEYVIAL IH SCH ×2 (15:55→21:25)
[2016-09-07] MEDS ORDERED: GABAPENTIN 300 MG CAP ONE (16:01)
[2016-09-07] MEDS ORDERED: LORazepam 1 MG TAB ONE (16:01)
[2016-09-07] MEDS: ONDANSETRON 4 MG/2 ML VIAL IVP PRN (16:05)
[2016-09-07] MEDS: LORazepam 1 MG TAB PO PRN (16:50)
[2016-09-07] MEDS: GABAPENTIN 300 MG CAP PO SCH ×2 (16:55→21:40)
[2016-09-07] MEDS: D5W 1/2 NS W/ 20 KCl/L 1,000 ML IV SCH (19:11)
[2016-09-07] MEDS: BUDESONIDE/FORMOTEROL 160/4.5 60 PUFFS/MDI IH SCH (21:27)
[2016-09-07] MEDS: methylPREDNISolone SOD SUCC 125 MG/2 ML VIAL IVP SCH (21:40)
[2016-09-07] MEDS: QUEtiapine FUMARATE 100 MG TAB PO SCH (21:41)
[2016-09-07] MEDS: DULoxetine 30 MG CAP PO SCH (21:41)
[2016-09-08] MEDS: IPRATROPIUM/ALBUTEROL 3 ML DEYVIAL IH SCH ×4 (05:11→20:48)
[2016-09-08] MEDS: ONDANSETRON DISINTEGRATING 4 MG TAB PO PRN (05:18)
[2016-09-08] MEDS: methylPREDNISolone SOD SUCC 125 MG/2 ML VIAL IVP SCH ×3 (05:19→21:29)
[2016-09-08 06:09] LABS: % IMMATURE GRANULYOCYTES 1.3 % (0.0-1.1); ABSOLUTE IMMATURE GRANULOCYTES 0.19 10^3/uL (0.00-0.10); ADD DIFF? NO; ADD MORPH? NO; ADD SCAN? NO; ATYPICAL LYMPHOCYTE FLAG 0 (0-99); FRAGMENT RBC FLAG 0 (0-99); HEMOGLOBIN 11.7 g/dL (12.6-16.3); LEFT SHIFT FLG 10 (0-99); LIPEMIA HEMOLYSIS FLAG 80 (0-99); MEAN CELL HEMOGLOBIN 30.5 pg (27.9-34.1); MEAN CELL HEMOGLOBIN CONCENTR. 32.5 g/dL (32.4-36.7); MEAN CELL VOLUME 93.8 fL (81.5-99.8); MEAN PLATELET VOLUME 9.6 fL (8.7-11.7); PLATELET CLUMPS FLAG 0 (0-99); PLATELET COUNT 244 10^3/uL (150-400); RED BLOOD CELL COUNT 3.84 10^6/uL (4.18-5.33); RED CELL DISTRIBUTION WIDTH 13.1 % (11.5-15.2)
[2016-09-08 06:51] LABS: ANION GAP 9 mEq/L (8-16); CALCIUM 9.2 mg/dL (8.5-10.4); CARBON DIOXIDE 24 mEq/l (22-31); CHLORIDE 103 mEq/L (97-110); CREATININE 0.9 mg/dL (0.6-1.0); GLOMERULAR FILTRATION RATE > 60; GLUCOSE 167 mg/dL (70-100); POTASSIUM 4.8 mEq/L (3.5-5.2); SODIUM 136 mEq/L (134-144)
[2016-09-08] MEDS: D5W 1/2 NS W/ 20 KCl/L 1,000 ML IV SCH (07:01)
[2016-09-08] MEDS: ONDANSETRON 4 MG/2 ML VIAL IVP PRN (09:03)
[2016-09-08] MEDS: ENOXAPARIN 40 MG/0.4 ML SYR SC SCH (09:04)
[2016-09-08] MEDS: GABAPENTIN 300 MG CAP PO SCH ×4 (09:07→21:28)
[2016-09-08] MEDS: ASPIRIN EC 325 MG TAB PO SCH ×2 (09:07→12:52)
[2016-09-08] MEDS: METOPROLOL SUCCINATE XR 25 MG TAB PO SCH ×2 (09:07→12:52)
[2016-09-08] MEDS: ATORVASTATIN CALCIUM 20 MG TAB PO SCH ×2 (09:07→12:52)
[2016-09-08] MEDS: TIOTROPIUM INHALER 18 MCG/DOSE 5 DOSE/MDI IH SCH (10:10)
[2016-09-08] MEDS: BUDESONIDE/FORMOTEROL 160/4.5 60 PUFFS/MDI IH SCH ×2 (10:11→20:54)
[2016-09-08] MEDS: PROMETHAZINE HCL 25 MG/ML INJ IVP PRN ×2 (11:29→18:39)
[2016-09-08] MEDS: QUEtiapine FUMARATE 25 MG TAB PO PRN (12:52)
[2016-09-08] MEDS: LORazepam 1 MG TAB PO PRN (13:47)
--- NOTE | 2016-09-08 14:02 | HOSPPROG ---
Hospitalist Progress Note Assessment/Plan: * COPD exacerbation * continue IV Solu-Medrol since not taking p.o. very well along with nebulizer and home meds * no change in sputum or other symptoms to suggest as bacterial bronchitis * nausea vomiting /abdominal pain * probably gastroenteritis * CT scan does not show appendicitis * she has had a cholecystectomy * hypertension * SHARON * GERD Subjective: breathing is little better but continued nausea vomiting and right lower quadrant abdominal pain Objective: Vital Signs Temp Pulse Resp BP Pulse Ox 36.6 C 111 H 18 127/72 H 91 L 09/08/16 12:43 09/08/16 12:52 09/08/16 12:43 09/08/16 12:52 09/08/16 12:43 Laboratory Results 09/08/16 05:30 09/08/16 05:30 CT scan abdomen pelvis ordered and reviewed and interpreted - no appendicitis pulse oximetry personally reviewed interpreted shows mild hypoxia on room air with sat of 90% - Physical Exam Constitutional: no apparent distress, appears nourished, not in pain Eyes: anicteric sclera, EOMI Ears, Nose, Mouth, Throat: moist mucous membranes, hearing normal, ears appear normal Cardiovascular: regular rate and rhythym, no murmur, rub, or gallop Respiratory: no respiratory distress, other ( decreased breath sounds. Slight wheezing) Gastrointestinal: normoactive bowel sounds, tenderness ( mild right lower quadrant tenderness), No guarding, No rebound Skin: warm Neurologic: AAOx3 Psychiatric: interacting appropriately, not anxious, not encephalopathic, thought process linear ICD10 Worksheet Patient Problems: Problems Problem Status Onset COPD exacerbation Acute Failure of outpatient treatment Acute COPD exacerbation Acute Leukocytosis Acute Shortness of breath Acute
[2016-09-08] MEDS: QUEtiapine FUMARATE 100 MG TAB PO SCH (21:28)
[2016-09-08] MEDS: DULoxetine 30 MG CAP PO SCH (21:28)
[2016-09-09] MEDS: PROMETHAZINE HCL 25 MG/ML INJ IVP PRN ×2 (00:08→09:35)
[2016-09-09] MEDS: IPRATROPIUM/ALBUTEROL 3 ML DEYVIAL IH SCH ×4 (05:38→20:54)
[2016-09-09] MEDS: methylPREDNISolone SOD SUCC 125 MG/2 ML VIAL IVP SCH ×3 (05:55→21:33)
[2016-09-09] MEDS: ENOXAPARIN 40 MG/0.4 ML SYR SC SCH (08:26)
[2016-09-09] MEDS: GABAPENTIN 300 MG CAP PO SCH ×3 (08:26→21:34)
[2016-09-09] MEDS: ASPIRIN EC 325 MG TAB PO SCH (08:27)
[2016-09-09] MEDS: METOPROLOL SUCCINATE XR 25 MG TAB PO SCH (08:27)
[2016-09-09] MEDS: ATORVASTATIN CALCIUM 20 MG TAB PO SCH (08:27)
[2016-09-09] MEDS: QUEtiapine FUMARATE 25 MG TAB PO PRN ×2 (08:28→16:00)
[2016-09-09] MEDS: BUDESONIDE/FORMOTEROL 160/4.5 60 PUFFS/MDI IH SCH ×2 (09:03→20:56)
[2016-09-09] MEDS: TIOTROPIUM INHALER 18 MCG/DOSE 5 DOSE/MDI IH SCH (09:03)
[2016-09-09] MEDS: LORazepam 1 MG TAB PO PRN ×2 (13:25→21:40)
[2016-09-09] MEDS ORDERED: oxyCODONE IR 5 MG TAB PO PRN (15:37)
--- NOTE | 2016-09-09 15:43 | HOSPPROG ---
Hospitalist Progress Note Assessment/Plan: 60 yo F w copd exacerbation * COPD exacerbation * continue IV Solu-Medrol since not taking p.o. very well along with nebulizer and home meds * no change in sputum or other symptoms to suggest as bacterial bronchitis * nausea vomiting /abdominal pain * probably gastroenteritis * CT scan does not show appendicitis * she has had a cholecystectomy constipation: add mirlax pain: requesting narcotics give scheduled tylenol and prn 2.5 of oxycodone * hypertension proph: lmwh * SHARON * GERD Subjective: still w wheezing. c/o pain in breast where she has bruising Objective: Vital Signs Temp Pulse Resp BP Pulse Ox 36.8 C 102 H 22 H 144/90 H 94 09/09/16 12:00 09/09/16 12:00 09/09/16 12:00 09/09/16 12:00 09/09/16 12:00 Laboratory Results 09/08/16 05:30 09/08/16 05:30 09/08/16 09/09/16 09/10/16 05:59 05:59 05:59 Intake Total 350 Balance 350 - Physical Exam Constitutional: no apparent distress, appears nourished Eyes: PERRL, anicteric sclera Ears, Nose, Mouth, Throat: moist mucous membranes, hearing normal Cardiovascular: regular rate and rhythym, no murmur, rub, or gallop, No tachycardia Respiratory: other (decreased air movement, moderate wheeze) Gastrointestinal: normoactive bowel sounds, soft, non-tender abdomen Genitourinary: no bladder fullness, No sharp in urethra Skin: warm, other (bruise without hematoma on L breast) Musculoskeletal: full muscle strength Neurologic: AAOx3 ICD10 Worksheet Patient Problems: Problems Problem Status Onset COPD exacerbation Acute Failure of outpatient treatment Acute COPD exacerbation Acute Leukocytosis Acute Shortness of breath Acute
[2016-09-09] MEDS: ACETAMINOPHEN 500 MG TAB PO SCH ×2 (15:56→23:01)
[2016-09-09] MEDS: oxyCODONE IR 5 MG TAB PO PRN (16:00)
[2016-09-09] MEDS: ONDANSETRON DISINTEGRATING 4 MG TAB PO PRN (16:00)
[2016-09-09] MEDS: DULoxetine 30 MG CAP PO SCH (21:34)
[2016-09-09] MEDS: QUEtiapine FUMARATE 100 MG TAB PO SCH (21:34)
[2016-09-10] MEDS: QUEtiapine FUMARATE 25 MG TAB PO PRN ×2 (04:15→14:42)
[2016-09-10] MEDS: methylPREDNISolone SOD SUCC 125 MG/2 ML VIAL IVP SCH (05:06)
[2016-09-10] MEDS: IPRATROPIUM/ALBUTEROL 3 ML DEYVIAL IH SCH ×4 (05:20→20:50)
[2016-09-10] MEDS: BUDESONIDE/FORMOTEROL 160/4.5 60 PUFFS/MDI IH SCH ×2 (08:56→20:50)
[2016-09-10] MEDS: TIOTROPIUM INHALER 18 MCG/DOSE 5 DOSE/MDI IH SCH (08:57)
[2016-09-10] MEDS: ACETAMINOPHEN 500 MG TAB PO SCH ×3 (09:09→23:41)
[2016-09-10] MEDS: ATORVASTATIN CALCIUM 20 MG TAB PO SCH (09:09)
[2016-09-10] MEDS: ONDANSETRON DISINTEGRATING 4 MG TAB PO PRN (09:10)
[2016-09-10] MEDS: METOPROLOL SUCCINATE XR 25 MG TAB PO SCH (09:10)
[2016-09-10] MEDS: ASPIRIN EC 325 MG TAB PO SCH (09:10)
[2016-09-10] MEDS: GABAPENTIN 300 MG CAP PO SCH ×3 (09:10→20:45)
[2016-09-10] MEDS: oxyCODONE IR 5 MG TAB PO PRN (09:10)
[2016-09-10] MEDS: ENOXAPARIN 40 MG/0.4 ML SYR SC SCH (09:10)
--- NOTE | 2016-09-10 14:00 | HOSPPROG ---
Hospitalist Progress Note Assessment/Plan: 60 yo F w copd exacerbation * COPD exacerbation * change to po pred * no change in sputum or other symptoms to suggest as bacterial bronchitis * nausea vomiting /abdominal pain * probably gastroenteritis * CT scan does not show appendicitis * she has had a cholecystectomy * eating * beningn abd exam constipation: add mirlax pain: requesting narcotics although no clear pain to treat give scheduled tylenol dc narcotics * hypertension proph: lmwh * SHARON * GERD Subjective: asking for pain meds for vague pain complaints. asking for phenergan. breathing unchanged Objective: Vital Signs Temp Pulse Resp BP Pulse Ox 36.8 C 92 20 141/77 H 95 09/10/16 08:00 09/10/16 10:58 09/10/16 10:58 09/10/16 08:00 09/10/16 10:58 Microbiology 09/09/16 16:57 Gastrointestinal Tract Panel (PCR) - Final Stool No Organism Detected Laboratory Results 09/08/16 05:30 09/08/16 05:30 09/09/16 09/10/16 09/11/16 05:59 05:59 05:59 Intake Total 350 1000 Output Total 500 Balance 350 500 - Physical Exam Constitutional: no apparent distress, appears nourished Eyes: PERRL, anicteric sclera Ears, Nose, Mouth, Throat: moist mucous membranes, hearing normal Cardiovascular: regular rate and rhythym, no murmur, rub, or gallop Respiratory: no respiratory distress, no rales or rhonchi Gastrointestinal: normoactive bowel sounds, soft, non-tender abdomen Genitourinary: no bladder fullness, No sharp in urethra Skin: warm, normal color Musculoskeletal: full muscle strength, no muscle tenderness Neurologic: AAOx3, sensation intact bilaterally Psychiatric: interacting appropriately, not anxious Lymph, Heme, Immunologic: no cervical LAD ICD10 Worksheet Patient Problems: Problems Problem Status Onset COPD exacerbation Acute Failure of outpatient treatment Acute COPD exacerbation Acute Leukocytosis Acute Shortness of breath Acute
[2016-09-10] MEDS: LORazepam 1 MG TAB PO PRN (14:42)
[2016-09-10] MEDS: PROMETHAZINE HCL 25 MG/ML INJ IVP PRN ×2 (14:42→21:59)
[2016-09-10] MEDS: DULoxetine 30 MG CAP PO SCH (20:45)
[2016-09-10] MEDS: QUEtiapine FUMARATE 100 MG TAB PO SCH (20:45)
[2016-09-11] MEDS: PROMETHAZINE HCL 25 MG/ML INJ IVP PRN ×2 (04:00→10:09)
[2016-09-11] MEDS: IPRATROPIUM/ALBUTEROL 3 ML DEYVIAL IH SCH ×3 (05:40→15:30)
[2016-09-11] MEDS: ACETAMINOPHEN 500 MG TAB PO SCH ×2 (08:00→15:52)
[2016-09-11] MEDS: ASPIRIN EC 325 MG TAB PO SCH (08:30)
[2016-09-11] MEDS: ENOXAPARIN 40 MG/0.4 ML SYR SC SCH (08:30)
[2016-09-11] MEDS: ATORVASTATIN CALCIUM 20 MG TAB PO SCH (08:30)
[2016-09-11] MEDS: METOPROLOL SUCCINATE XR 25 MG TAB PO SCH (08:31)
[2016-09-11] MEDS: GABAPENTIN 300 MG CAP PO SCH ×2 (08:31→16:38)
[2016-09-11] MEDS ORDERED: predniSONE 20 MG TAB PO SCH (09:00)
[2016-09-11] MEDS: TIOTROPIUM INHALER 18 MCG/DOSE 5 DOSE/MDI IH SCH (10:29)
[2016-09-11] MEDS: BUDESONIDE/FORMOTEROL 160/4.5 60 PUFFS/MDI IH SCH (10:29)
--- NOTE | 2016-09-11 10:49 | HOSPPROG ---
Hospitalist Progress Note Assessment/Plan: 60 yo F w copd exacerbation * COPD exacerbation * change to po pred * no change in sputum or other symptoms to suggest as bacterial bronchitis * * pred taper as outpt * nausea vomiting /abdominal pain * probably gastroenteritis * CT scan does not show appendicitis * she has had a cholecystectomy * eating * beningn abd exam constipation: add mirlax pain: requesting narcotics although no clear pain to treat give scheduled tylenol dc narcotics * hypertension proph: lmwh dispo: to safe house today > 30 minutes Subjective: ready for dc Objective: Vital Signs Temp Pulse Resp BP Pulse Ox 37.1 C 92 16 141/88 H 92 09/11/16 08:00 09/11/16 10:31 09/11/16 10:31 09/11/16 08:00 09/11/16 10:31 Microbiology 09/09/16 16:57 Gastrointestinal Tract Panel (PCR) - Final Stool No Organism Detected Laboratory Results 09/08/16 05:30 09/08/16 05:30 09/10/16 09/11/16 09/12/16 05:59 05:59 05:59 Intake Total 1000 500 Output Total 500 Balance 500 500 - Physical Exam Constitutional: no apparent distress, appears nourished Eyes: PERRL, anicteric sclera Ears, Nose, Mouth, Throat: moist mucous membranes, ears appear normal Cardiovascular: regular rate and rhythym, no murmur, rub, or gallop Respiratory: no respiratory distress, no rales or rhonchi Gastrointestinal: normoactive bowel sounds, soft, non-tender abdomen Genitourinary: No sharp in urethra Skin: warm, normal color Musculoskeletal: full muscle strength, no muscle tenderness Neurologic: AAOx3, sensation intact bilaterally ICD10 Worksheet Patient Problems: Problems Problem Status Onset Shortness of breath Acute COPD exacerbation Acute Leukocytosis Acute COPD exacerbation Acute Failure of outpatient treatment Acute
--- NOTE | 2016-09-11 11:09 | GDS ---
[f rep st] DISCHARGE SUMMARY DISCHARGE DIAGNOSES: 1. Chronic obstructive pulmonary disease with ongoing flare. 2. Obstructive sleep apnea. 3. Hypertension. 4. Pain, uncertain etiology. HOSPITAL COURSE: Please see admission history and physical. She was readmitted on the after having been discharged pretty much that day. She did have an abdominal CT because of abdominal pain, that showed a 3 mm nonobstructive calculus in the pole of the left lower kidney otherwise, unremarkable. She had normal renal function. No hematuria. No evidence for heart failure. Stable hypoxemia. She was treated with ongoing prednisone and inhalers. She is discharged today, with oxygen and a steroid taper to a safe house. Greater than 30 minutes spent on the preparation of this discharge. /[id number]/MODL MTDD
[2016-09-11 11:45] VITALS: BP 120/66; TEMP 98.6
[2016-09-11] MEDS: LORazepam 1 MG TAB PO PRN (11:52)
[2016-09-11 15:44] VITALS: PULSE 101; RESP 16; O2SAT 96
[2016-09-11] MEDS: QUEtiapine FUMARATE 25 MG TAB PO PRN (15:51)
== END 2016-09-11 17:05 | disposition home or self-care (01) | DRG 192 ==
LOC: EDUNIT# → F3E 18:30
PROVIDERS: ADMIT Internal Medicine; ATTEND Internal Medicine
DX: J44.1 Chronic obstructive pulmonary disease with (acute) exacerbation (principal); K52.9 Noninfective gastroenteritis and colitis, unspecified; K59.00 Constipation, unspecified; N20.0 Calculus of kidney; I25.10 Atherosclerotic heart disease of native coronary artery without angina pectoris; K21.9 Gastro-esophageal reflux disease without esophagitis; M06.9 Rheumatoid arthritis, unspecified; G47.33 Obstructive sleep apnea (adult) (pediatric); I10 Essential (primary) hypertension; Z99.81 Dependence on supplemental oxygen; Z87.891 Personal history of nicotine dependence; I25.2 Old myocardial infarction
CPT/HCPCS: 96374; J1650; J2405; J2550

== ENCOUNTER 2016-09-12 | Observation (INO) | payer MEDICAID ==
[2016-09-12] MEDS ORDERED: NS 1,000 ML IV ONE (00:04)
[2016-09-12] MEDS ORDERED: ALBUTEROL 3 ML DEYVIAL IH ONE (00:05)
[2016-09-12] MEDS ORDERED: methylPREDNISolone SOD SUCC 125 MG/2 ML VIAL IVP ONE (00:05)
--- NOTE | 2016-09-12 00:10 | EDPHY ---
H & P HPI/ROS: HPI CHIEF COMPLAINT: Shortness of breath, just discharged today HISTORY OF PRESENT ILLNESS: This patient is 60-year-old female she has significant past medical history for COPD on 3 L of oxygen at home at night, obstructive sleep apnea, hypertension, GERD, rheumatoid arthritis, presents to the emergency room after she was discharged from the hospital today for worsening shortness of breath, wheezing. Patient reports shortly after getting discharge she began having shortness of breath with wheezing and cough could not catch her breath. She took multiple DuoNeb breathing treatments at home and albuterol inhaler puffs at home however did continued to have worsening shortness of breath she called 911. EMS gave her DuoNeb EN route. Upon arrival to the emergency room she has shortness of breath, she is tachypneic, she has audible wheezing, decreased air movement throughout lung [place]. No chest pain. No fever. Does have a cough nonproductive. Of note she was discharged on September 07 and readmitted and now discharged September 11 now readmitted. She did have a positive D-dimer previous hospital visit and had a CT angiogram somewhat limited study but no central pulmonary embolism. She presents this evening in respiratory distress with tachypnea, labored breathing, 1 word dyspnea, audible wheezing. Past Medical History: COPD, asthma, obstructive sleep apnea, hypertension, GERD , rheumatoid arthritis Past Surgical History: Cholecystectomy, hysterectomy Social History: Denies use of drugs alcohol tobacco products Family History: Noncontributory ROS REVIEW OF SYSTEMS: A comprehensive 10 point review of systems is otherwise negative aside from elements mentioned in the history of present illness. Exam Constitutional respiratory distress, triage nursing summary reviewed, vital signs reviewed, awake/alert. Eyes normal conjunctivae and sclera, EOMI, PERRLA. HENT normal inspection, atraumatic, moist mucus membranes, no epistaxis, neck supple/ no meningismus, no raccoon eyes. Respiratory respiratory distress with tachypnea, labored breathing, 1 word dyspnea, audible wheezing. Cardiovascular rate normal, regular rhythm, no murmur, no edema, distal pulses normal. Gastrointestinal soft, non-tender, no rebound, no guarding, normal bowel sounds, no distension, no pulsatile mass. Genitourinary no CVA tenderness. Musculoskeletal no midline vertebral tenderness, full range of motion, no calf swelling, no tenderness of extremities, no meningismus, good pulses, neurovascularly intact. Skin pink, warm, & dry, no rash, skin atraumatic. Neurologic awake, alert and oriented x 3, AAOx3, moves all 4 extremities equally, motor intact, sensory intact, CN II-XII intact, normal cerebellar, normal vision, normal speech. Psychiatric normal mood/affect. Heme/Lymph/Immune no lymphadenopathy. Differential Diagnosis: Includes but is not limited to in a particular order bronchitis, asthma attack, COPD exacerbation, ACS, CHF, pneumothorax Medical Decision Making: Plan for this patient full monitoring manager, IV establishment, IV Solu-Medrol, in-line continuous albuterol neb, BiPAP, ABG, blood work and fluid bolus and reassessment. Re-evaluation: EKG interpretation by me on record in [facility]Doctor system. Impression time of EKG 12:13 a.m., this is sinus tachycardia rate of [address] elevation or significant ST depression. When compared to old EKG dated 09/07/2016 this is unchanged. Critical Care: Total Critical Care Time Spent Managing this Patient: 65Minutes. This time was spent Exclusively with this patient. This Care was exclusive of procedures. The Organ System/life at risk was pulmonary This Patient was in Critical Condition because COPD exacerbation with hypoxia respiratory distress 0109: Re-evaluation at this time this patient remains stable on full face BiPAP she is doing much improved. Good air movement. She had continuous albuterol neb. IV Solu-Medrol and IV fluid bolus. Her troponin is still pending at this time however clinically she is having a COPD exacerbation. Chest x-ray has been reviewed shows no focal infiltrate. Patient will be admitted to PCU on full face BiPAP to the hospitalist service. Dr. Retana has accepted. Patient is hemodynamically stable this time. Source: Patient, EMS - Medical/Surgical History Hx Asthma: Yes Hx Chronic Respiratory Disease: Yes Hx Diabetes: No Hx Cardiac Disease: Yes Hx Renal Disease: No Hx Cirrhosis: No Hx Alcoholism: No Hx HIV/AIDS: No Hx Splenectomy or Spleen Trauma: No Other PMH: VA, CAD, COPD, asthma, home O2 (apria), GERD, RA, SHARON, hiatal hernia , crohns, neuropathy, hysterectomy, choly, t&a - Social History Smoking Status: Current some day smoker Constitutional: Initial Vital Signs Temperature (C) 36.8 C 09/12/16 00:00 Heart Rate 127 H 09/12/16 00:00 Respiratory Rate 28 H 09/12/16 00:00 Blood Pressure 160/106 H 09/12/16 00:00 O2 Sat (%) 91 L 09/12/16 00:00 O2 Delivery Mode Room Air O2 (L/minute) 2 Allergies/Adverse Reactions: benztropine [From Cogentin] Allergy (Verified 09/12/16 00:11) codeine Allergy (Verified 09/12/16 00:11) iodine Allergy (Verified 09/12/16 00:11) morphine Allergy (Verified 09/12/16 00:11) Penicillins Allergy (Verified 09/12/16 00:11) Sulfa (Sulfonamide Antibiotics) Allergy (Verified 09/12/16 00:11) Home Medications: Medication Instructions Recorded Aspirin EC [Aspirin EC 325 mg (*)] 325 mg PO DAILY 09/03/16 Atorvastatin Calcium [Lipitor 20 20 mg PO DAILY 09/03/16 mg (*)] Budesonide/Formoterol 160/4.5 1 puffs IH BID 09/03/16 [Symbicort 160-4.5 Mcg Inh (*)] DULoxetine [Cymbalta 30 MG (*)] 90 mg PO HS 09/03/16 LORazepam [Ativan (*)] 1 mg PO BID PRN 09/03/16 Metoprolol Succinate 25 mg PO DAILY 09/03/16 Gabapentin [Neurontin 300 MG (*)] 1,200 mg PO TID 09/04/16 Herbals/Supplements -Info Only 1 ea PO DAILY 09/04/16 Tiotropium Inhaler [Spiriva 1 inh IH DAILY 09/04/16 Inhaler (RX)] Albuterol [Proventil Inhaler HFA 1 - 2 puffs IH Q4 PRN #1 mdi 09/05/16 (*)] Ipratropium/Albuterol [Duoneb (*)] 3 ml IH Q6 PRN #10 deyvial 09/05/16 Promethazine HCl [Phenergan 12.5mg 12.5 mg DE Q6 PRN 09/07/16 supp (*)] QUEtiapine FUMARATE [Seroquel 100 100 mg PO HS #30 tab 09/11/16 mg (*)] QUEtiapine FUMARATE [Seroquel 25 25 mg PO Q6 PRN #30 tab 09/11/16 mg (*)] predniSONE [predniSONE TAPER] 1 each PO .EDIT DOSE INSTRUCT #1 ea 09/11/16 Medical Decision Making - Data Points Laboratory Results: Laboratory Results 09/12/16 00:15 09/12/16 00:15 09/12/16 09/12/16 09/12/16 00:35 00:15 00:15 WBC RBC Hgb Hct MCV MCH MCHC RDW Plt Count MPV Neut % (Auto) Lymph % (Auto) [place] % (Auto) Eos % (Auto) Baso % (Auto) Nucleat RBC Rel Count Absolute Neuts (auto) Absolute Lymphs (auto) Absolute Monos (auto) Absolute Eos (auto) Absolute Basos (auto) Absolute Nucleated RBC Immature Gran % Immature Gran # Platelet Estimate PT 12.6 SEC SEC (12.0-15.0) INR 0.95 (0.83-1.16) APTT 25.4 SEC SEC (23.0-38.0) Puncture Site NONE GIVEN Patient Temperature 37.0 DEGREES DEGREES pCO2 48 mmHg H mmHg (34-38) pO2 387 mmHg H mmHg (65-75) Total CO2 29 mEq/L H mEq/L (23-27) ABG pH 7.38 (7.35-7.45) ABG HCO3 28 mEq/L H mEq/L (22-26) ABG O2 Saturation 100 % H % (92-95) ABG Base Excess 2.7 mEq/L H mEq/L (-2.5-2.5) Sodium 140 mEq/L mEq/L (134-144) Potassium 4.3 mEq/L mEq/L (3.5-5.2) Chloride 102 mEq/L mEq/L (97-110) Carbon Dioxide 25 mEq/l mEq/l (22-31) Anion Gap 13 mEq/L mEq/L (8-16) BUN 33 mg/dL H mg/dL (7-23) Creatinine 0.9 mg/dL mg/dL (0.6-1.0) Estimated GFR > 60 Glucose 116 mg/dL H mg/dL (70-100) Calcium 9.6 mg/dL mg/dL (8.5-10.4) Magnesium 2.3 mg/dL mg/dL (1.6-2.3) Total Bilirubin 0.5 mg/dL mg/dL (0.1-1.4) Conjugated Bilirubin 0.4 mg/dL mg/dL (0.0-0.5) Unconjugated Bilirubin 0.1 mg/dL mg/dL (0.0-1.1) AST 19 IU/L IU/L (14-46) ALT 30 IU/L IU/L (9-52) Alkaline Phosphatase 77 IU/L IU/L (38-126) Creatine Kinase 44 IU/L IU/L (0-156) CK-MB (CK-2) Fraction Pending Troponin I Pending NT-Pro-B Natriuret Pep Pending Total Protein 6.3 g/dL g/dL (6.3-8.2) Albumin 4.2 g/dL g/dL (3.5-5.0) 09/12/16 00:15 WBC 20.43 10^3/uL H 10^3/uL (3.80-9.50) RBC 3.88 10^6/uL L 10^6/uL (4.18-5.33) Hgb 12.2 g/dL L g/dL (12.6-16.3) Hct 37.0 % L % (38.0-47.0) MCV 95.4 fL fL (81.5-99.8) MCH 31.4 pg pg (27.9-34.1) MCHC 33.0 g/dL g/dL (32.4-36.7) RDW 13.4 % % (11.5-15.2) Plt Count 287 10^3/uL 10^3/uL (150-400) MPV 9.1 fL fL (8.7-11.7) Neut % (Auto) Not Reported Lymph % (Auto) Not Reported [place] % (Auto) Not Reported Eos % (Auto) Not Reported Baso % (Auto) Not Reported Nucleat RBC Rel Count 0.2 % % (0.0-0.2) Absolute Neuts (auto) Not Reported Absolute Lymphs (auto) Not Reported Absolute Monos (auto) Not Reported Absolute Eos (auto) Not Reported Absolute Basos (auto) Not Reported Absolute Nucleated RBC 0.04 10^3/uL H 10^3/uL (0-0.01) Immature Gran % Not Reported Immature Gran # Not Reported Platelet Estimate Pending PT INR APTT Puncture Site Patient Temperature pCO2 pO2 Total CO2 ABG pH ABG HCO3 ABG O2 Saturation ABG Base Excess Sodium Potassium Chloride Carbon Dioxide Anion Gap BUN Creatinine Estimated GFR Glucose Calcium Magnesium Total Bilirubin Conjugated Bilirubin Unconjugated Bilirubin AST ALT Alkaline Phosphatase Creatine Kinase CK-MB (CK-2) Fraction Troponin I NT-Pro-B Natriuret Pep Total Protein Albumin Medications Given: Discontinued Medications Sodium Chloride (Ns) 1,000 mls @ 0 mls/hr IV ONCE ONE PRN Reason: Wide Open Stop: 09/12/16 00:05 Last Admin: 09/12/16 00:22 Dose: 1,000 mls Methylprednisolone Sodium Succinate (Solu-Medrol) 125 mg IVP EDNOW ONE Stop: 09/12/16 00:06 Last Admin: 09/12/16 00:21 Dose: 125 mg Departure - Departure Disposition: [facility] Inpatient Acute Clinical Impression: COPD exacerbation, Respiratory distress Condition: Serious Referrals: Patient,NotPresent [Unknown] - As per Instructions
--- NOTE | 2016-09-12 00:17 | CPEKG ---
Heart Rate: 120 RR Interval: 500 P-R Interval: 144 QRSD Interval: 86 QT Interval: 316 QTC Interval: 447 P [place]: 68 QRS [place]: 28 T Wave [place]: 68 EKG Severity - OTHERWISE NORMAL ECG - EKG Impression: SINUS TACHYCARDIA Electronically Signed By: Jose Pascual 12-Sep-2016 07:05:26
[2016-09-12 00:32] LABS: ABSOLUTE NRBC COUNT 0.04 10^3/uL (0-0.01); ADD DIFF? YES; ADD MORPH? NO; ADD SCAN? NO; ATYPICAL LYMPHOCYTE FLAG 0 (0-99); FRAGMENT RBC FLAG 0 (0-99); HEMOGLOBIN 12.2 g/dL (12.6-16.3); LEFT SHIFT FLG 80 (0-99); LIPEMIA HEMOLYSIS FLAG 80 (0-99); MEAN CELL HEMOGLOBIN 31.4 pg (27.9-34.1); MEAN CELL VOLUME 95.4 fL (81.5-99.8); MEAN PLATELET VOLUME 9.1 fL (8.7-11.7); NRBC-AUTO% 0.2 % (0.0-0.2); PLATELET CLUMPS FLAG 0 (0-99); PLATELET COUNT 287 10^3/uL (150-400); RED BLOOD CELL COUNT 3.88 10^6/uL (4.18-5.33); RED CELL DISTRIBUTION WIDTH 13.4 % (11.5-15.2)
[2016-09-12 00:51] LABS: BASE EXCESS 2.7 mEq/L (-2.5-2.5); BICARBONATE 28 mEq/L (22-26); MEASURED OXYGEN SATURATION 100 % (92-95); PCO2 48 mmHg (34-38); PO2 387 mmHg (65-75); TCO2 29 mEq/L (23-27)
[2016-09-12 00:57] LABS: APTT 25.4 SEC (23.0-38.0); INR 0.95 (0.83-1.16); PROTIME(PATIENT) 12.6 SEC (12.0-15.0)
[2016-09-12 00:59] LABS: ALANINE AMINOTRANSFERASE 30 IU/L (9-52); ALBUMIN 4.2 g/dL (3.5-5.0); ALKALINE PHOSPHATASE 77 IU/L (38-126); ANION GAP 13 mEq/L (8-16); ASPARTATE AMINOTRANSFERASE 19 IU/L (14-46); BILIRUBIN,TOTAL 0.5 mg/dL (0.1-1.4); BILIRUBIN-CONJUGATED 0.4 mg/dL (0.0-0.5); BILIRUBIN-UNCONJUGATED 0.1 mg/dL (0.0-1.1); CALCIUM 9.6 mg/dL (8.5-10.4); CARBON DIOXIDE 25 mEq/l (22-31); CHLORIDE 102 mEq/L (97-110); CREATININE 0.9 mg/dL (0.6-1.0); GLOMERULAR FILTRATION RATE > 60; GLUCOSE 116 mg/dL (70-100); MAGNESIUM 2.3 mg/dL (1.6-2.3); POTASSIUM 4.3 mEq/L (3.5-5.2); SODIUM 140 mEq/L (134-144); TOTAL PROTEIN 6.3 g/dL (6.3-8.2)
[2016-09-12] MEDS ORDERED: AZITHROMYCIN IV 500 MG in D5W 250 ML IV ONE (01:03)
[2016-09-12 01:11] LABS: CREATINE KINASE-MB FRACTION 1.43 ng/mL (0-3.19); TROPONIN I < 0.012 ng/mL (0-0.034)
[2016-09-12] MEDS ORDERED: ONDANSETRON 4 MG/2 ML VIAL ONE (01:15)
[2016-09-12 01:17] LABS: PLATELET ESTIMATE ADEQUATE (ADEQ)
[2016-09-12] MEDS ORDERED: ACETAMINOPHEN 325 MG TAB PO PRN (01:22)
[2016-09-12] MEDS ORDERED: PROMETHAZINE HCL 25 MG/ML INJ ONE (01:24)
[2016-09-12] MEDS ORDERED: ONDANSETRON 4 MG/2 ML VIAL IVP ONE (01:35)
[2016-09-12] MEDS ORDERED: PROMETHAZINE HCL 25 MG/ML INJ IVP ONE (01:35)
--- NOTE | 2016-09-12 01:36 | PDGENHP ---
History and Physical - Chief Complaint shortness of breath - History of Present Illness Patient is a 60 year old female with COPD, HTN, RA, CAD, self-reported CHF, bipolar disorder who was discharged from [facility] today (09/11) after admission for acute COPD exacerbation, presents again to the ED with acute dyspnea. Patient states this morning, while still in the hospital, she felt generally fatigued and weak, but her wheezing/dyspnea was relatively well controlled. She was discharged at around 5pm and shortly after arriving home, again developed chest tightness and wheezing. She also has a chronic productive cough that is producing thick green sputum. She denies any fevers, chills, headache, vomiting , diarrhea. She does report mild nausea. OVer the course of the night her wheezing intensified, did not respond to her home rescue inhalers, so she called EMS. On arrival to the ED, patient was afebrile, but tachycardic, tachypneic, slightly hypoxic on room air. She was wheezing and in moderate respiratory distress. She was placed on BIPAP, given IV steroids and continuous nebs, with stabilization of her resp status. Labs revealed persistent leukocytosis, normal BMP, negative troponin. CXR revealed hyperexpanded lungs, no focal infiltrate. EKG showed sinus tachycardia without ischemic changes. She was then admitted for further management. History Information - Allergies/Home Medication List Allergies/Adverse Reactions: benztropine [From Cogentin] Allergy (Verified 09/12/16 00:11) codeine Allergy (Verified 09/12/16 00:11) iodine Allergy (Verified 09/12/16 00:11) morphine Allergy (Verified 09/12/16 00:11) Penicillins Allergy (Verified 09/12/16 00:11) Sulfa (Sulfonamide Antibiotics) Allergy (Verified 09/12/16 00:11) Home Medications: Aspirin EC [Aspirin EC 325 mg (*)] 325 mg PO DAILY 09/03/16 [Last Taken 09/06/16 ] Atorvastatin Calcium [Lipitor 20 mg (*)] 20 mg PO DAILY 09/03/16 [Last Taken ] Budesonide/Formoterol 160/4.5 [Symbicort 160-4.5 Mcg Inh (*)] 1 puffs IH BID [Last Taken 09/06/16] DULoxetine [Cymbalta 30 MG (*)] 90 mg PO HS 09/03/16 [Last Taken 09/06/16] LORazepam [Ativan (*)] 1 mg PO BID PRN 09/03/16 [Last Taken 09/06/16] Metoprolol Succinate 25 mg PO DAILY 09/03/16 [Last Taken 09/06/16] Gabapentin [Neurontin 300 MG (*)] 1,200 mg PO TID 09/04/16 [Last Taken 09/06/16 21:00] Herbals/Supplements -Info Only 1 ea PO DAILY 09/04/16 [Last Taken Unknown] Tiotropium Inhaler [Spiriva Inhaler (RX)] 1 inh IH DAILY 09/04/16 [Last Taken ] Promethazine HCl [Phenergan 12.5mg supp (*)] 12.5 mg PA Q6 PRN 09/07/16 [Last Taken Unknown] I have personally reviewed and updated: family history, medical history, social history, surgical history - Past Medical History Additional medical history: Hypertension. COPD/Asthma. Rheumatoid arthritis. SHARON on cpap. GERD. CAD, no PCI. CHF. Bipolar disorder - Surgical History Additional surgical history: hysterectomy. cholecystectomy. tonsillectomy - Family History Positive for: CAD - Social History Smoking Status: Current some day smoker (40 pack year history) Alcohol Use: None Drug Use: None Additional social history: Patient recently moved to [place]; currently resides in [facility]. Review of Systems ROS: 10pt was reviewed & negative except for what was stated in HPI & below Physical Exam Temp Pulse Resp BP Pulse Ox 36.8 C 127 H 28 H 160/106 H 91 L 09/12/16 00:00 09/12/16 00:00 09/12/16 00:00 09/12/16 00:00 09/12/16 00:00 Constitutional: no apparent distress, appears nourished, not in pain Eyes: PERRL, anicteric sclera, EOMI Ears, Nose, Mouth, Throat: moist mucous membranes, hearing normal, ears appear normal, no oral mucosal ulcers Cardiovascular: regular rate and rhythym, no murmur, rub, or gallop, pulses symmetric bilaterally, No JVD, No edema Peripheral Pulses: 2+: dorsalis-pedis (R), dorsalis-pedis (L) Respiratory: no respiratory distress, no rales or rhonchi, expiratory wheeze Gastrointestinal: normoactive bowel sounds, soft, non-tender abdomen, no palpable masses, No guarding, No rebound Genitourinary: no bladder fullness, no bladder tenderness Skin: warm, normal color, no rashes or abrasions, no fluctuance, no induration, No mottled Musculoskeletal: full muscle strength, no muscle tenderness, normal joint ROM, no joint effusions Neurologic: AAOx3, sensation intact bilaterally, CN II-XII Intact, No weakness, No numbness Psychiatric: interacting appropriately, not anxious, not encephalopathic, thought process linear Lab Data & Imaging Review 09/12/16 00:15 09/12/16 00:15 WBC 20.43 10^3/uL (3.80-9.50) H 09/12/16 00:15 RBC 3.88 10^6/uL (4.18-5.33) L 09/12/16 00:15 Hgb 12.2 g/dL (12.6-16.3) L 09/12/16 00:15 Hct 37.0 % (38.0-47.0) L 09/12/16 00:15 MCV 95.4 fL (81.5-99.8) 09/12/16 00:15 MCH 31.4 pg (27.9-34.1) 09/12/16 00:15 MCHC 33.0 g/dL (32.4-36.7) 09/12/16 00:15 RDW 13.4 % (11.5-15.2) 09/12/16 00:15 Plt Count 287 10^3/uL (150-400) 09/12/16 00:15 MPV 9.1 fL (8.7-11.7) 09/12/16 00:15 Neut % (Auto) Not Reported 09/12/16 00:15 Lymph % (Auto) Not Reported 09/12/16 00:15 [place] % (Auto) Not Reported 09/12/16 00:15 Eos % (Auto) Not Reported 09/12/16 00:15 Baso % (Auto) Not Reported 09/12/16 00:15 Nucleat RBC Rel Count 0.2 % (0.0-0.2) 09/12/16 00:15 Absolute Neuts (auto) Not Reported 09/12/16 00:15 Absolute Lymphs (auto) Not Reported 09/12/16 00:15 Absolute Monos (auto) Not Reported 09/12/16 00:15 Absolute Eos (auto) Not Reported 09/12/16 00:15 Absolute Basos (auto) Not Reported 09/12/16 00:15 Absolute Nucleated RBC 0.04 10^3/uL (0-0.01) H 09/12/16 00:15 Immature Gran % Not Reported 09/12/16 00:15 Seg Neutrophils % 75 % 09/12/16 00:15 Band Neutrophils % 7 % 09/12/16 00:15 Lymphocytes % 15 % 09/12/16 00:15 Monocytes % 1 % 09/12/16 00:15 Metamyelocytes % 2 % 09/12/16 00:15 Immature Gran # Not Reported 09/12/16 00:15 Absolute Seg Neuts 15.32 10^/uL (1.70-6.50) H 09/12/16 00:15 Absolute Band Neuts 1.43 10^3/uL (0.00-0.70) H 09/12/16 00:15 Absolute Lymphocytes 3.06 10^3/uL (1.00-3.00) H 09/12/16 00:15 Absolute Monocytes 0.20 10^3/uL (0.30-0.80) L 09/12/16 00:15 Absolute Metamyelocyte 0.41 10^3/mL (0.00-0.00) H 09/12/16 00:15 RBC/WBC/PLT Morphology NORMAL (NORMAL) 09/12/16 00:15 Platelet Estimate ADEQUATE (ADEQ) 09/12/16 00:15 PT 12.6 SEC (12.0-15.0) 09/12/16 00:15 INR 0.95 (0.83-1.16) 09/12/16 00:15 APTT 25.4 SEC (23.0-38.0) 09/12/16 00:15 Puncture Site NONE GIVEN 09/12/16 00:35 Patient Temperature 37.0 DEGREES 09/12/16 00:35 pCO2 48 mmHg (34-38) H 09/12/16 00:35 pO2 387 mmHg (65-75) H 09/12/16 00:35 Total CO2 29 mEq/L (23-27) H 09/12/16 00:35 ABG pH 7.38 (7.35-7.45) 09/12/16 00:35 ABG HCO3 28 mEq/L (22-26) H 09/12/16 00:35 ABG O2 Saturation 100 % (92-95) H 09/12/16 00:35 ABG Base Excess 2.7 mEq/L (-2.5-2.5) H 09/12/16 00:35 Sodium 140 mEq/L (134-144) 09/12/16 00:15 Potassium 4.3 mEq/L (3.5-5.2) 09/12/16 00:15 Chloride 102 mEq/L (97-110) 09/12/16 00:15 Carbon Dioxide 25 mEq/l (22-31) 09/12/16 00:15 Anion Gap 13 mEq/L (8-16) 09/12/16 00:15 BUN 33 mg/dL (7-23) H 09/12/16 00:15 Creatinine 0.9 mg/dL (0.6-1.0) 09/12/16 00:15 Estimated GFR > 60 09/12/16 00:15 Glucose 116 mg/dL (70-100) H 09/12/16 00:15 Calcium 9.6 mg/dL (8.5-10.4) 09/12/16 00:15 Magnesium 2.3 mg/dL (1.6-2.3) 09/12/16 00:15 Total Bilirubin 0.5 mg/dL (0.1-1.4) 09/12/16 00:15 Conjugated Bilirubin 0.4 mg/dL (0.0-0.5) 09/12/16 00:15 Unconjugated Bilirubin 0.1 mg/dL (0.0-1.1) 09/12/16 00:15 AST 19 IU/L (14-46) 09/12/16 00:15 ALT 30 IU/L (9-52) 09/12/16 00:15 Alkaline Phosphatase 77 IU/L (38-126) 09/12/16 00:15 Creatine Kinase 44 IU/L (0-156) 09/12/16 00:15 CK-MB (CK-2) Fraction 1.43 ng/mL (0-3.19) 09/12/16 00:15 Troponin I < 0.012 ng/mL (0-0.034) 09/12/16 00:15 NT-Pro-B Natriuret Pep 352 pg/mL (0-125) H 09/12/16 00:15 Total Protein 6.3 g/dL (6.3-8.2) 09/12/16 00:15 Albumin 4.2 g/dL (3.5-5.0) 09/12/16 00:15 Visualized and Interpreted Chest x-ray results: Yes Chest X-Ray results: no infiltrate Visualized and Interpreted EKG results: Yes EKG additional interpertation: sinus tachycardia, no st/t wave changes Assessment & Plan Assessment: Patient is a 60-year-old female with history of COPD, hypertension, RA, GERD, CAD CHF and bipolar disorder who presents to the ED with moderate respiratory distress. Evaluation appears consistent COPD exacerbation. Plan: # acute respiratory distress Patient has been admitted twice since 09/03 for COPD exacerbation, and now presents again to the ED on day of discharge with recurrent respiratory distress. On first arrival, patient was tachycardic, tachypneic and wheezing on exam, but distress has improved significantly with BIPAP, steroids and nebs. Suspect today's presentation is continuation of the COPD exacerbation, although differential also includes cardiac etiology (CHF/ACS) or PE, given recent hospitalizations. Initial EKG and troponin are nonischemic. Will check TTE. Patient had a negative CT angio to r/o PE on 09/03, do not have high suspicion for PE, but if symptoms do not improve with steroids/nebs/supplemental O2, consider repeat CT angio. - cont BIPAP as needed - solumedrol 60 mg IV q8h - duonebs standing q6h, alb neb q2h prn - f/u TTE, monitor troponins # leukocytosis Patient has been afebrile throughout her recent hospitalizations. Although patient meets SIRS criteria on presentation today, do not suspect sepsis at this time, as cxr is clear of infiltrate. Leukocytosis is likely related to recent steroid use. Will continue to trend CBC, monitor for localizing signs of infection and check UA. # chronic hypertension Stable, cont home meds. # Bipolar disorder Mood stable, cont home med. # dispo: admit to observation status # gen: cardiac diet DVT ppx: lovenox Full code
[2016-09-12] MEDS: oxyCODONE IR 5 MG TAB PO PRN ×2 (03:16→07:34)
--- NOTE | 2016-09-12 03:34 | CPEKG ---
Heart Rate: 94 RR Interval: 638 P-R Interval: 144 QRSD Interval: 88 QT Interval: 344 QTC Interval: 431 P [place]: 58 QRS [place]: 50 T Wave [place]: 67 EKG Severity - NORMAL ECG - EKG Impression: SINUS RHYTHM Electronically Signed By: Jose Pascual 12-Sep-2016 07:05:26
[2016-09-12] MEDS: IPRATROPIUM/ALBUTEROL 3 ML DEYVIAL IH SCH ×4 (05:01→22:32)
[2016-09-12 05:05] LABS: COLOR YELLOW; LEUKOCYTE ESTERASE,URINE TRACE (NEGATIVE); NITRITE,URINE NEGATIVE (NEGATIVE)
[2016-09-12 05:11] LABS: MUCUS TRACE /lpf (NONE-1+)
[2016-09-12] MEDS: PROMETHAZINE HCL 25 MG TAB PO PRN (05:15)
[2016-09-12 05:26] LABS: ABSOLUTE NRBC COUNT 0.02 10^3/uL (0-0.01); ADD DIFF? YES; ADD MORPH? NO; ADD SCAN? NO; ATYPICAL LYMPHOCYTE FLAG 0 (0-99); FRAGMENT RBC FLAG 0 (0-99); HEMATOCRIT 33.9 % (38.0-47.0); LEFT SHIFT FLG 60 (0-99); LIPEMIA HEMOLYSIS FLAG 80 (0-99); MEAN CELL HEMOGLOBIN 31.2 pg (27.9-34.1); MEAN CELL HEMOGLOBIN CONCENTR. 32.4 g/dL (32.4-36.7); NRBC-AUTO% 0.1 % (0.0-0.2); PLATELET CLUMPS FLAG 20 (0-99); PLATELET COUNT 220 10^3/uL (150-400); RED BLOOD CELL COUNT 3.53 10^6/uL (4.18-5.33); RED CELL DISTRIBUTION WIDTH 13.4 % (11.5-15.2)
[2016-09-12 06:00] LABS: ANION GAP 5 mEq/L (8-16); CALCIUM 8.5 mg/dL (8.5-10.4); CARBON DIOXIDE 24 mEq/l (22-31); CHLORIDE 106 mEq/L (97-110); CREATININE 0.8 mg/dL (0.6-1.0); GLOMERULAR FILTRATION RATE > 60; GLUCOSE 167 mg/dL (70-100); MAGNESIUM 2.2 mg/dL (1.6-2.3); POTASSIUM 5.3 mEq/L (3.5-5.2); SODIUM 135 mEq/L (134-144)
[2016-09-12] MEDS ORDERED: methylPREDNISolone SOD SUCC 125 MG/2 ML VIAL IVP SCH (06:00)
[2016-09-12 06:09] LABS: CREATINE KINASE-MB FRACTION 1.18 ng/mL (0-3.19); TROPONIN I < 0.012 ng/mL (0-0.034)
[2016-09-12 06:12] LABS: PLATELET ESTIMATE ADEQUATE (ADEQ)
[2016-09-12] MEDS: ALBUTEROL 3 ML DEYVIAL IH PRN (08:15)
[2016-09-12] MEDS: ENOXAPARIN 40 MG/0.4 ML SYR SC SCH (09:29)
--- NOTE | 2016-09-12 12:26 | ECHO ---
[id number] + + [address] : : [place] [address] : : [phone] + Adult Echocardiographic Report + ---+ :Name: SCARLET HILLAlexandre Date: 09/12/2016 10:16 AM : : Hospital Admission Number: [id number] Location: 240: :: 1955 Gender: Female Height: 62 in : :Age: 60 yrs Race: WH Weight: 190 lb : :Reason For Study: Eval LV Fx : : BSA: 1.9 meters2 : :History: Dyspnea, COPD : + ---+ MMode/2D Measurements \T\ Calculations IVSd: 1.0 cm LVIDd: 4.1 cm FS: 33.2 % Ao root diam: 2.9 cm LVPWd: 1.1 cm LVIDs: 2.7 cm EDV(Teich): 73.4 ml ACS: 1.4 cm ESV(Teich): 27.6 ml EF(Teich): 62.4 % Normal Measurement Values: + + :LVIDd (3.5-5.7cm) IVSd (0.6-1.1cm) LVPWd (0.6-1.1cm) Aortic Root (2.0-3.7cm)Left Atrium (1.5-4.0cm): :LV Vol(d) (76-115ml) LV Vol(s) (29-48ml) Ejec Fraction (50-65%)PV Braeden (0.6- 1.2m/s) TV Braeden (0.4-1.0m/s) : :MV E Braeden (0.8-1.0m/s)MV A Bra[place] (0.3-1.0m/s)LVOT Braed[place] (0.7-1.2m/s) Asc Ao Braeden ( 0.9-1.8m/s) : + + Doppler Measurements \T\ Calculations MV E max braeden: Ao V2 max: LV V1 max: PA V2 max: 91.3 cm/sec 196.8 cm/sec 109.6 cm/sec 119.4 cm/sec MV A max braeden: Ao max PG: LV V1 max PG: PA max P.3 cm/sec 15.5 mmHg 4.8 mmHg 5.7 mmHg MV E/A: 0.72 Left Ventricle The left ventricle is normal in size. There is normal left ventricular wall thickness. The left ventricular ejection fraction is normal. There is Doppler evidence for diastolic dysfunction. Ejection Fraction = 63%. The left ventricular wall motion is normal. Right Ventricle The right ventricle is normal in size and function. Atria The left atrial size is normal. Right atrial size is normal. Mitral Valve The mitral valve is normal in structure and function. There is no evidence of mitral valve prolapse. There is no mitral valve stenosis. There is no mitral regurgitation noted. Tricuspid Valve The tricuspid valve is normal in structure and function. Aortic Valve The aortic valve is normal in structure and function. There is no aortic stenosis. There is no aortic insufficiency. Pulmonic Valve The pulmonic valve is normal in structure and function. There is no pulmonic valvular regurgitation. Great Vessels The aortic root is normal size. Pericardium/Pleural There is no pericardial effusion. Conclusion A complete two-dimensional transthoracic echocardiogram was performed (2D, M-mode, Doppler and color flow Doppler). The study was technically difficult. The left ventricular ejection fraction is normal. Ejection Fraction = 63%. Suboptimal image quality precludes a detailed assessment of regional wall motion. No obvious hypokinetic areeas.. There is Doppler evidence for diastolic dysfunction. The right ventricle is normal in size and function. The left atrial size is normal. The mitral valve is normal in structure and function. The tricuspid valve is normal in structure and function. The aortic valve is normal in structure and function. The aortic root is normal size. There is no pericardial effusion. Final Reading Physician: Dilan Lozada signed on 09/12/2016 12:25 PM Ordering Physician: Gayle Retana Performed By: Hernesto Villafana, RDCS
[2016-09-12] MEDS ORDERED: PROMETHAZINE HCL 12.5 MG SUPPR PR PRN (12:32)
[2016-09-12] MEDS ORDERED: QUEtiapine FUMARATE 25 MG TAB PO PRN (12:32)
[2016-09-12] MEDS ORDERED: ALBUTEROL 60 PUFFS/8 GM MDI IH PRN (12:32)
[2016-09-12] MEDS ORDERED: IPRATROPIUM/ALBUTEROL 3 ML DEYVIAL IH PRN (12:32)
[2016-09-12] MEDS ORDERED: ALBUTEROL 200 PUFFS/18 GM MDI IH PRN (12:53)
--- NOTE | 2016-09-12 12:54 | HOSPPROG ---
Hospitalist Progress Note Assessment/Plan: readmitted w increased work of breathing and unremarkable eval vitals, 02 requirement at apparent baseline change to po steroids suspect will dc in AM 6/5 ?role on anxiety in continued readmissions she is living in a safe house, nursing staff notes bruising. she offers vague answers Objective: Vital Signs Temp Pulse Resp BP Pulse Ox 36.6 C 92 16 138/71 H 97 09/12/16 04:00 09/12/16 12:26 09/12/16 12:26 09/12/16 04:00 09/12/16 12:26 Laboratory Results 09/12/16 05:05 09/12/16 05:05 09/11/16 09/12/16 09/13/16 05:59 05:59 05:59 Intake Total 800 Output Total 400 400 Balance 400 -400 PT 12.6 SEC (12.0-15.0) 09/12/16 00:15 INR 0.95 (0.83-1.16) 09/12/16 00:15 ICD10 Worksheet Patient Problems: Problems Problem Status Onset COPD exacerbation Acute Respiratory distress Acute COPD exacerbation Acute Failure of outpatient treatment Acute Leukocytosis Acute Shortness of breath Acute
[2016-09-12] MEDS: LORazepam 1 MG TAB PO PRN ×2 (13:10→20:27)
[2016-09-12] MEDS: GABAPENTIN 300 MG CAP PO SCH ×2 (15:37→20:26)
[2016-09-12] MEDS: PROMETHAZINE HCL 25 MG/ML INJ IVP PRN (16:01)
[2016-09-12] MEDS ORDERED: traZODone 100 MG TAB PO SCH (21:00)
[2016-09-12] MEDS ORDERED: DULoxetine 30 MG CAP PO SCH (21:00)
[2016-09-12] MEDS ORDERED: QUEtiapine FUMARATE 100 MG TAB PO SCH (21:00)
[2016-09-12] MEDS: BUDESONIDE/FORMOTEROL 160/4.5 60 PUFFS/MDI IH SCH (22:32)
[2016-09-13] MEDS: PROMETHAZINE HCL 25 MG/ML INJ IVP PRN (00:02)
[2016-09-13] MEDS: oxyCODONE IR 5 MG TAB PO PRN ×3 (02:03→15:03)
[2016-09-13] MEDS ORDERED: TIOTROPIUM INHALER 18 MCG/DOSE 5 DOSE/MDI IH SCH (09:00)
[2016-09-13] MEDS ORDERED: predniSONE 20 MG TAB PO SCH (09:00)
[2016-09-13] MEDS ORDERED: ATORVASTATIN CALCIUM 20 MG TAB PO SCH (09:00)
[2016-09-13] MEDS: PROMETHAZINE HCL 25 MG TAB PO PRN (09:00)
[2016-09-13] MEDS ORDERED: ASPIRIN EC 325 MG TAB PO SCH (09:00)
[2016-09-13] MEDS ORDERED: METOPROLOL SUCCINATE XR 25 MG TAB PO SCH (09:00)
[2016-09-13] MEDS ORDERED: Herbals/Supplements -Info Only PO SCH (09:00)
[2016-09-13] MEDS: IPRATROPIUM/ALBUTEROL 3 ML DEYVIAL IH SCH (11:32)
[2016-09-13] MEDS: BUDESONIDE/FORMOTEROL 160/4.5 60 PUFFS/MDI IH SCH (11:33)
[2016-09-13] MEDS: GABAPENTIN 300 MG CAP PO SCH ×2 (11:47→15:03)
[2016-09-13] MEDS: ENOXAPARIN 40 MG/0.4 ML SYR SC SCH (11:47)
[2016-09-13 12:15] VITALS: TEMP 99
--- NOTE | 2016-09-13 13:28 | HOSPPROG ---
Hospitalist Progress Note Assessment/Plan: readmitted w increased work of breathing and unremarkable eval vitals, 02 requirement at apparent baseline change to po steroids suspect will dc in AM 6/5 ?role on anxiety in continued readmissions she is living in a safe house, nursing staff notes bruising. she offers vague answers home today will give script for ativan given sig anxiety that I suspect is driving her readmissions Subjective: 02 requirement at baseline. very anxious about discharge Objective: Vital Signs Temp Pulse Resp BP Pulse Ox 37.2 C 88 20 92/61 L 97 09/13/16 12:00 09/13/16 12:00 09/13/16 12:00 09/13/16 12:00 09/13/16 12:00 Laboratory Results 09/12/16 05:05 09/12/16 05:05 09/12/16 09/13/16 09/14/16 05:59 05:59 05:59 Intake Total 800 1225 Output Total 400 3350 Balance 400 -2125 PT 12.6 SEC (12.0-15.0) 09/12/16 00:15 INR 0.95 (0.83-1.16) 09/12/16 00:15 - Physical Exam Constitutional: no apparent distress, appears nourished Eyes: PERRL, anicteric sclera Ears, Nose, Mouth, Throat: moist mucous membranes, hearing normal Cardiovascular: regular rate and rhythym, no murmur, rub, or gallop Respiratory: other (expiratory wheezes w decreased breath sounds. unchanged to improved) Genitourinary: No sharp in urethra Skin: warm, normal color Musculoskeletal: full muscle strength, no muscle tenderness Neurologic: AAOx3, sensation intact bilaterally Psychiatric: interacting appropriately ICD10 Worksheet Patient Problems: Problems Problem Status Onset COPD exacerbation Acute Respiratory distress Acute COPD exacerbation Acute Failure of outpatient treatment Acute Leukocytosis Acute Shortness of breath Acute
[2016-09-13] MEDS: LORazepam 1 MG TAB PO PRN (13:40)
--- NOTE | 2016-09-13 14:34 | GDS ---
[f rep st] DISCHARGE SUMMARY DISCHARGE DIAGNOSES: 1. Chronic obstructive pulmonary disease with the tail end of a flare. 2. Anxiety. 3. Hypertension. 4. Obstructive sleep apnea. 5. Gastroesophageal reflux disease. Please see admission history and physical by Dr. Gayle Retana. This is her third admission since September 03, all with a COPD flare. She had been discharged on appropr iate therapy of steroid taper. She received courses of antibiotics, has been ruled out for PE. This past time I discharged the patient from the hospital on the 3rd in the afternoon, and later rm t evening, she presented to the emergency department with increased work of breathing. She received IV steroids and an echocardiogram, which was essentially unremarkable. She had chest imaging showi ng no pneumonia. She has had a persistent leukocytosis attributable to steroids. On the first hospital day, she was on her baseline 3 L of oxygen and breathing comfortably. When jsutin landrum is mentioned, she becomes anxious with increased work of breathing. She was asking for Ativ an during her last discharge, which I declined to give her, but I am going to give it to her this ti me. I suspect that anxiety is driving her increased work of breathing and discharge. I would advis e if the patient re-presented to the emergency department, consider evaluating for anxiety, and if s he is truly off her baseline at 3 L of oxygen versus new chest x-ray findings before considering adm ission. She has had negative troponins throughout this. Her BNP has been modestly elevated in the 200-300 range. Heart failure is not contributing to this current presentation. She is discharged h ome with a prescription for Ativan. She has oxygen in place. /[id number]/MODL
[2016-09-13] MEDS: ALBUTEROL 3 ML DEYVIAL IH PRN (15:23)
[2016-09-13 15:31] VITALS: RESP 16
[2016-09-13 15:46] VITALS: BP 141/72; PULSE 86; O2SAT 97
== END 2016-09-13 16:11 | disposition home or self-care (01) ==
LOC: EDUNIT# → EEVIPCON → INTOOBSV 01:07 → F2N 02:13
PROVIDERS: ADMIT Internal Medicine; ATTEND Internal Medicine
DX: J44.1 Chronic obstructive pulmonary disease with (acute) exacerbation (principal); J96.00 Acute respiratory failure, unspecified whether with hypoxia or hypercapnia; F41.9 Anxiety disorder, unspecified; I10 Essential (primary) hypertension; G47.33 Obstructive sleep apnea (adult) (pediatric); K21.9 Gastro-esophageal reflux disease without esophagitis; M06.9 Rheumatoid arthritis, unspecified; Z72.0 Tobacco use
CPT/HCPCS: 71010; 93005; 93306; G0378; 96374; J0456; J1650; J2405; J2550

== ENCOUNTER 2016-09-16 00:28 | Emergency (ER) | payer MEDICAID ==
[2016-09-16] MEDS ORDERED: NS 500 ML IV ONE (00:58)
[2016-09-16 01:22] LABS: ABSOLUTE NRBC COUNT 0.02 10^3/uL (0-0.01); ADD DIFF? YES; ADD MORPH? NO; ADD SCAN? NO; ATYPICAL LYMPHOCYTE FLAG 0 (0-99); FRAGMENT RBC FLAG 0 (0-99); HEMATOCRIT 37.5 % (38.0-47.0); LEFT SHIFT FLG 40 (0-99); LIPEMIA HEMOLYSIS FLAG 80 (0-99); MEAN CELL HEMOGLOBIN 30.9 pg (27.9-34.1); MEAN CELL VOLUME 96.6 fL (81.5-99.8); MEAN PLATELET VOLUME 8.9 fL (8.7-11.7); NRBC-AUTO% 0.1 % (0.0-0.2); PLATELET CLUMPS FLAG 0 (0-99); PLATELET COUNT 283 10^3/uL (150-400); RED BLOOD CELL COUNT 3.88 10^6/uL (4.18-5.33); RED CELL DISTRIBUTION WIDTH 13.3 % (11.5-15.2)
[2016-09-16 01:32] LABS: ANION GAP 8 mEq/L (8-16); CALCIUM 8.7 mg/dL (8.5-10.4); CARBON DIOXIDE 26 mEq/l (22-31); CHLORIDE 104 mEq/L (97-110); CREATININE 0.8 mg/dL (0.6-1.0); GLOMERULAR FILTRATION RATE > 60; GLUCOSE 118 mg/dL (70-100); POTASSIUM 4.5 mEq/L (3.5-5.2); SODIUM 138 mEq/L (134-144)
[2016-09-16 02:19] LABS: PLATELET ESTIMATE ADEQUATE (ADEQ); TOXIC GRANULATION PRESENT
[2016-09-16] MEDS ORDERED: ONDANSETRON 4 MG/2 ML VIAL IVP ONE (02:39)
--- NOTE | 2016-09-16 02:40 | CPEKG ---
Heart Rate: 95 RR Interval: 632 P-R Interval: 132 QRSD Interval: 82 QT Interval: 344 QTC Interval: 433 P Eglon: 56 QRS Eglon: 19 T Wave Eglon: 68 EKG Severity - NORMAL ECG - EKG Impression: SINUS RHYTHM Electronically Signed By: Nidia No 16-Sep-2016 15:37:30
--- NOTE | 2016-09-16 02:52 | EDPHY ---
H & P Stated Complaint: SOB Time Seen by Provider: 09/16/16 00:53 HPI/ROS: HPI The patient presents with shortness of breath which has been present for the last 1 hour. She is brought in by ambulance. She treated herself with a DuoNeb at home without much improvement and called 911. The shortness of breath is accompanied by wheezing and mild cough. It is moderate in severity. Upon arrival of paramedics her room air sat was 93%. They administered albuterol and Solu-Medrol 125 mg. The patient was recently admitted to the hospital for COPD exacerbation. She has not had a fever or chills.. REVIEW OF SYSTEMS Constitutional: No fever, no chills. Eyes: No discharge. ENT: No sore throat. Cardiovascular: No chest pain, no palpitations. Respiratory: No cough, positive for shortness of breath. Gastrointestinal: No abdominal pain, no vomiting. Genitourinary: No hematuria. Musculoskeletal: No back pain. Skin: No rashes. Neurological: No headache. PMHx: COPD on 3 L of oxygen Soc Hx: Homeless, [facility] PHYSICAL General Appearance: Alert, no distress Eyes: Pupils equal and round no pallor or injection ENT, Mouth: Mucous membranes moist Respiratory: Breathing comfortably, no retractions, diffuse expiratory wheezes throughout all lung villanueva with prolonged I to E time Cardiovascular: Regular rate and rhythm Gastrointestinal: Abdomen is soft and non-tender, no masses, bowel sounds normal Neurological: A&O, moves all extremities Skin: Warm and dry, no rashes Musculoskeletal: Neck is supple non tender Extremities: symmetrical, full range of motion Psychiatric: Patient is oriented X 3, there is no agitation Source: Patient, EMS - Personal History Current Tetanus Diphtheria and Acellular Pertussis (TDAP): Unsure - Medical/Surgical History Hx Asthma: Yes Hx Chronic Respiratory Disease: Yes Hx Diabetes: No Hx Cardiac Disease: Yes Hx Renal Disease: No Hx Cirrhosis: No Hx Alcoholism: No Hx HIV/AIDS: No Hx Splenectomy or Spleen Trauma: No Other PMH: [place], CAD, COPD, asthma, home O2 (apria), GERD, RA, SHARON, hiatal hernia , crohns, neuropathy, hysterectomy, choly, t&a - Social History Smoking Status: Former smoker Constitutional: Initial Vital Signs Temperature (C) 37.2 C 09/16/16 00:28 Heart Rate 94 06/08/17 00:28 Respiratory Rate 22 H 09/16/16 00:28 Blood Pressure 130/104 H 09/16/16 00:28 O2 Sat (%) 92 09/16/16 00:28 O2 Delivery Mode Nasal Cannula O2 (L/minute) 3 Allergies/Adverse Reactions: benztropine [From Cogentin] Allergy (Verified 09/12/16 00:11) codeine Allergy (Verified 09/12/16 00:11) iodine Allergy (Verified 09/12/16 00:11) morphine Allergy (Verified 09/12/16 00:11) Penicillins Allergy (Verified 09/12/16 00:11) Sulfa (Sulfonamide Antibiotics) Allergy (Verified 09/12/16 00:11) Home Medications: Medication Instructions Recorded Aspirin EC [Aspirin EC 325 mg (*)] 325 mg PO DAILY 09/03/16 Atorvastatin Calcium [Lipitor 20 20 mg PO DAILY 09/03/16 mg (*)] Budesonide/Formoterol 160/4.5 1 puffs IH BID 09/03/16 [Symbicort 160-4.5 Mcg Inh (*)] DULoxetine [Cymbalta 30 MG (*)] 90 mg PO HS 09/03/16 Metoprolol Succinate 25 mg PO DAILY 09/03/16 Gabapentin [Neurontin 300 MG (*)] 1,200 mg PO TID 09/04/16 Herbals/Supplements -Info Only 1 ea PO DAILY 09/04/16 Albuterol [Proventil Inhaler HFA 1 - 2 puffs IH Q4 PRN #1 mdi 09/05/16 (*)] Ipratropium/Albuterol [Duoneb (*)] 3 ml IH Q6 PRN #10 deyvial 09/05/16 QUEtiapine FUMARATE [Seroquel 100 100 mg PO HS #30 tab 09/11/16 mg (*)] QUEtiapine FUMARATE [Seroquel 25 25 mg PO Q6 PRN #30 tab 09/11/16 mg (*)] traZODone [traZODONE 100MG (*)] 100 mg PO HS 09/12/16 LORazepam [Ativan (*)] 1 mg PO BID PRN #90 tab 09/13/16 Promethazine HCl [Phenergan 12.5mg 12.5 mg SC Q6 PRN #30 suppr 09/13/16 supp (*)] Tiotropium Inhaler [Spiriva 18 mcg IH DAILY 09/16/16 Handaler] Medical Decision Making - Diagnostics EKG Interpretation: EKG: Complete interpretation has been separately recorded in the [facility] archive. Summary impression: Normal sinus rhythm Imaging Results: Chest x-ray two view shows no infiltrate, no cardiomegaly, interpreted by me, radiology interpretation is pending. Differential Diagnosis: This is a 60-year-old female with COPD on 3 L of home O2 coming in from a retirement with shortness of breath which has been present for the last 1 hour. She was recently discharged from the hospital about 4 days ago for COPD exacerbation. She is supposed to be receiving prednisone, however has not gotten her prescription yet. She has been using her nebulizer several times. On exam, she has normal oxygenation on her 3 L, she does have diffuse wheezing but is generally well-appearing. Differential diagnosis includes COPD exacerbation, pneumonia, anxiety, less likely pulmonary embolism as this was ruled out during her recent admission. In the ambulance, the patient received Solu-Medrol and albuterol with improvement in her symptoms. Here chest x-ray was obtained and was unremarkable. Basic labs were normal. She felt well. She can be discharged with follow up with her primary care doctor. I have instructed her to try to obtain a prednisone prescription from her living facility. She can continue to use her nebs as needed. - Data Points Laboratory Results: Laboratory Results 09/16/16 01:13 09/16/16 01:13 09/16/16 01:13 Smear Review By Cali FLOOD MD Medications Given: Discontinued Medications Sodium Chloride (Ns) 500 mls @ 1,000 mls/hr IV ONCE ONE PRN Reason: Protocol Stop: 09/16/16 01:27 Last Admin: 09/16/16 01:09 Dose: 500 mls Ondansetron HCl (Zofran) 4 mg IVP EDNOW ONE Stop: 09/16/16 02:40 Last Admin: 09/16/16 02:53 Dose: 4 mg Departure - Departure Disposition: Home, Routine, Self-Care Clinical Impression: Chronic obstructive pulmonary disease with acute exacerbation Condition: Good Instructions: COPD (Chronic Obstructive Pulmonary Disease) (ED) Additional Instructions: Please take her medications as prescribed. You should return if your worse in any way. Please follow-up with your regular doctor tomorrow. Referrals: NEHEMIAH LOPZE [Other] - As per Instructions
[2016-09-16 03:01] VITALS: BP 134/64; PULSE 74; RESP 16; TEMP 98.4; O2SAT 92
== END 2016-09-16 03:01 | disposition home or self-care (01) ==
LOC: EDUNIT#
DX: J44.1 Chronic obstructive pulmonary disease with (acute) exacerbation (principal); I25.10 Atherosclerotic heart disease of native coronary artery without angina pectoris; I25.2 Old myocardial infarction; Z87.891 Personal history of nicotine dependence; Z79.82 Long term (current) use of aspirin
CPT/HCPCS: 96374; J2405

== ENCOUNTER 2016-09-16 14:27 | Inpatient (IN) | payer MEDICAID ==
[2016-09-16] MEDS ORDERED: IPRATROPIUM/ALBUTEROL 3 ML DEYVIAL IH ONE (14:42)
[2016-09-16] MEDS ORDERED: methylPREDNISolone SOD SUCC 125 MG/2 ML VIAL IVP ONE (14:42)
[2016-09-16] MEDS ORDERED: PROMETHAZINE HCL 25 MG/ML INJ IVP ONE (14:44)
--- NOTE | 2016-09-16 14:45 | EDPHY ---
H & P Stated Complaint: Asthma Exacerbation Time Seen by Provider: 09/16/16 14:34 HPI/ROS: CHIEF COMPLAINT: Asthma exacerbation HISTORY OF PRESENT ILLNESS: Patient is a 60 year old female [facility] who comes to the emergency department via EMS for asthma exacerbation. She was seen here early this morning. She has a history of asthma , coronary artery disease and severe COPD. She is on oxygen at baseline. She states that she has been taking prednisone 40 mg daily for a couple of months. She ran out 3 days ago. This morning she improved with Solu-Medrol and a DuoNeb. She had unremarkable lab work and chest x-ray. She was sent home. She states that she was unable to obtain her prednisone prescription and her symptoms gradually return to the last few hours. She is diaphoretic and states that she is tired. She denies chest pain. REVIEW OF SYSTEMS: Constitutional: denies: chills, fever, recent illness, recent injury EENTM: denies: blurred vision, double vision, nose congestion Respiratory: denies: cough, shortness of breath Cardiac: denies: chest pain, irregular heart rate, lightheadedness, palpitations Gastrointestinal/Abdominal: denies: abdominal pain, diarrhea, nausea, vomiting, blood streaked stools Genitourinary: denies: dysuria, frequency, hematuria, pain Musculoskeletal: denies: joint pain, muscle pain Skin: denies: lesions, rash, jaundice, bruising Neurological: denies: headache, numbness, paresthesia, tingling, dizziness, weakness Hematologic/Lymphatic: denies: blood clots, easy bleeding, easy bruising Immunologic/allergic: denies: HIV/AIDS, transplant EXAM: GENERAL: Well-appearing, well-nourished and in no acute distress. HEAD: Atraumatic, normocephalic. EYES: Pupils equal round and reactive to light, extraocular movements intact, sclera anicteric, conjunctiva are normal. ENT: TMs normal, nares patent, oropharynx clear without exudates. Moist mucous membranes. NECK: Normal range of motion, supple without lymphadenopathy or JVD. LUNGS: Diffuse expiratory wheezes HEART: Regular rate and rhythm without murmurs, rubs or gallops. ABDOMEN: Soft, nontender, normoactive bowel sounds. No guarding, no rebound. No masses appreciated. BACK: No CVA tenderness, no spinal tenderness, step-offs or deformities EXTREMITIES: Normal range of motion, no pitting or edema. No clubbing or cyanosis. NEUROLOGICAL: Cranial nerves II through XII grossly intact. Normal speech, normal gait. 5/5 strength, normal movement in all extremities, normal sensation PSYCH: Normal mood, normal affect. SKIN: Warm, dry, normal turgor, no visible rashes or lesions. Source: Patient Exam Limitations: No limitations - Personal History Current Tetanus/Diphtheria Vaccine: Unsure Current Tetanus Diphtheria and Acellular Pertussis (TDAP): Unsure - Medical/Surgical History Hx Asthma: Yes Hx Chronic Respiratory Disease: Yes Hx Diabetes: No Hx Cardiac Disease: Yes Hx Renal Disease: No Hx Cirrhosis: No Hx Alcoholism: No Hx HIV/AIDS: No Hx Splenectomy or Spleen Trauma: No Other PMH: [place], CAD, COPD, asthma, home O2 (apria), GERD, RA, SHARON, hiatal hernia , crohns, neuropathy, hysterectomy, choly, t&a - Family History Significant Family History: No pertinent family hx - Social History Smoking Status: Former smoker Alcohol Use: Sober Drug Use: None Constitutional: Initial Vital Signs Temperature (C) 36.9 C 09/16/16 14:33 Heart Rate 109 H 09/16/16 14:33 Respiratory Rate 22 H 09/16/16 14:33 Blood Pressure 178/101 H 09/16/16 14:33 O2 Sat (%) 97 09/16/16 14:33 O2 Delivery Mode Bi-Pap O2 (L/minute) 5 Allergies/Adverse Reactions: benztropine [From Cogentin] Allergy (Verified 09/12/16 00:11) codeine Allergy (Verified 09/12/16 00:11) iodine Allergy (Verified 09/12/16 00:11) morphine Allergy (Verified 09/12/16 00:11) Penicillins Allergy (Verified 09/12/16 00:11) Sulfa (Sulfonamide Antibiotics) Allergy (Verified 09/12/16 00:11) Home Medications: Medication Instructions Recorded Aspirin EC [Aspirin EC 325 mg (*)] 325 mg PO DAILY 09/03/16 Atorvastatin Calcium [Lipitor 20 20 mg PO DAILY 09/03/16 mg (*)] Budesonide/Formoterol 160/4.5 1 puffs IH BID 09/03/16 [Symbicort 160-4.5 Mcg Inh (*)] DULoxetine [Cymbalta 30 MG (*)] 90 mg PO HS 09/03/16 Metoprolol Succinate 25 mg PO DAILY 09/03/16 Gabapentin [Neurontin 300 MG (*)] 1,200 mg PO TID 09/04/16 Herbals/Supplements -Info Only 1 ea PO DAILY 09/04/16 Albuterol [Proventil Inhaler HFA 1 - 2 puffs IH Q4 PRN #1 mdi 09/05/16 (*)] Ipratropium/Albuterol [Duoneb (*)] 3 ml IH Q6 PRN #10 deyvial 09/05/16 QUEtiapine FUMARATE [Seroquel 100 100 mg PO HS #30 tab 09/11/16 mg (*)] QUEtiapine FUMARATE [Seroquel 25 25 mg PO Q6 PRN #30 tab 09/11/16 mg (*)] traZODone [traZODONE 100MG (*)] 100 mg PO HS 09/12/16 LORazepam [Ativan (*)] 1 mg PO BID PRN #90 tab 09/13/16 Promethazine HCl [Phenergan 12.5mg 12.5 mg AL Q6 PRN #30 suppr 09/13/16 supp (*)] Tiotropium Inhaler [Spiriva 18 mcg IH DAILY 09/16/16 Handihaler] Medical Decision Making ED Course/Re-evaluation: I discussed the case with Dr. Kyrie Alfredo. He states that he is familiar with the patient. She presents very frequently because she is anxious and not compliant and she does not like the safe house. She is told others that she would prefer to stay in the hospital. He will come and consult. We will take off her BiPAP. She was saturating in the mid 90s despite significant expiratory wheezes. 3:50 p.m. the patient has been evaluated by Dr. Alfredo who will admit. I have not reordered lab work or x-rays since there done early this morning. We were able to wean her off of BiPAP. Differential Diagnosis: Partial list of the Differential diagnosis considered include but were not limited to; COPD exacerbation, asthma exacerbation, no complaints and although unlikely based on the history and physical exam, I also considered PE, acute coronary disease. Critical Care Time: Critical care time spent by me, Dr. Antonio exclusive with this patient was 35 minutes, exclusive of the PA time exclusive of procedures. The organ system that was at risk was pulmonary and I gave BiPAP, nebs and steroids to prevent worsening of the patient's condition - Data Points Medications Given: Discontinued Medications Albuterol/Ipratropium (Duoneb) 3 ml IH EDNOW ONE Stop: 09/16/16 14:43 Last Admin: 09/16/16 17:15 Dose: Not Given Methylprednisolone Sodium Succinate (Solu-Medrol) 125 mg IVP EDNOW ONE Stop: 09/16/16 14:43 Last Admin: 09/16/16 14:55 Dose: 125 mg Promethazine HCl (Phenergan) 12.5 mg IVP EDNOW ONE Stop: 09/16/16 14:45 Last Admin: 09/16/16 14:55 Dose: 12.5 mg Departure - Departure Disposition: [facility] Acute Clinical Impression: COPD exacerbation Condition: Fair
[2016-09-16] MEDS ORDERED: PROMETHAZINE HCL 25 MG/ML INJ ONE (14:51)
[2016-09-16] MEDS ORDERED: ONDANSETRON 4 MG/2 ML VIAL IVP PRN (16:36)
[2016-09-16] MEDS ORDERED: ACETAMINOPHEN 325 MG TAB PO PRN (16:36)
[2016-09-16] MEDS ORDERED: ALBUTEROL 3 ML DEYVIAL IH PRN (16:36)
[2016-09-16] MEDS ORDERED: ONDANSETRON DISINTEGRATING 4 MG TAB PO PRN (16:36)
--- NOTE | 2016-09-16 16:42 | PDGENHP ---
History and Physical - Chief Complaint Acute shortness of breath - History of Present Illness PCP: [facility] HPI: 60-year-old female presenting with acute shortness of breath characterized as difficulty taking a deep breath with onset of symptoms mid morning on the day of presentation, duration persistent thereafter. Patient reports that the symptoms began when she was ambulating upstairs to go use her nebulizer treatment. Shortness of breath was exacerbated by ambulating upstairs and was only modestly alleviated by the breathing treatment. She continued to experience shortness of breath and called emergency services. She reports that she has not consistently been wearing supplemental oxygen at home although she was discharged on at 3 days ago and it was recommended that she remain on it continuously. She also did not fill her prescription for steroids she has not been receiving any steroids since discharge. She has otherwise been taking all of her home medications as well as breathing treatments. History Information - Allergies/Home Medication List Allergies/Adverse Reactions: benztropine [From Cogentin] Allergy (Verified 09/12/16 00:11) codeine Allergy (Verified 09/12/16 00:11) iodine Allergy (Verified 09/12/16 00:11) morphine Allergy (Verified 09/12/16 00:11) Penicillins Allergy (Verified 09/12/16 00:11) Sulfa (Sulfonamide Antibiotics) Allergy (Verified 09/12/16 00:11) Home Medications: Aspirin EC [Aspirin EC 325 mg (*)] 325 mg PO DAILY 09/03/16 [Last Taken 09/06/16 ] Atorvastatin Calcium [Lipitor 20 mg (*)] 20 mg PO DAILY 09/03/16 [Last Taken ] Budesonide/Formoterol 160/4.5 [Symbicort 160-4.5 Mcg Inh (*)] 1 puffs IH BID [Last Taken 09/06/16] DULoxetine [Cymbalta 30 MG (*)] 90 mg PO HS 09/03/16 [Last Taken 09/06/16] Metoprolol Succinate 25 mg PO DAILY 09/03/16 [Last Taken 09/06/16] Gabapentin [Neurontin 300 MG (*)] 1,200 mg PO TID 09/04/16 [Last Taken 09/06/16 21:00] Herbals/Supplements -Info Only 1 ea PO DAILY 09/04/16 [Last Taken Unknown] Tiotropium Inhaler [Spiriva Inhaler (RX)] 1 inh IH DAILY 09/04/16 [Last Taken ] Promethazine HCl [Phenergan 12.5mg supp (*)] 12.5 mg GA Q6 PRN 09/07/16 [Last Taken Unknown] predniSONE [predniSONE TAPER] 1 each PO DAILY 09/12/16 [Last Taken Unknown] traZODone [traZODONE 100MG (*)] 100 mg PO HS 09/12/16 [Last Taken Unknown] I have personally reviewed and updated: family history, medical history, social history, surgical history - Past Medical History COPD (With chronic hypoxic respiratory failure, recommend that she be on 3 L nasal cannula at all times) Additional medical history: Hypertension. COPD/Asthma. Rheumatoid arthritis. SHARON on cpap. GERD. CAD, no PCI. CHF. Bipolar disorder - Surgical History Additional surgical history: hysterectomy. cholecystectomy. tonsillectomy - Family History Positive for: CAD - Social History Smoking Status: Former smoker Alcohol Use: Sober Drug Use: None Additional social history: Patient recently moved to [place] from the [place]; currently resides in [facility]. Review of Systems ROS: 10pt was reviewed & negative except for what was stated in HPI & below Respiratory: Reports: cough, shortness of breath Physical Exam Temp Pulse Resp BP Pulse Ox 36.8 C 90 19 140/80 H 95 09/16/16 16:00 09/16/16 16:00 09/16/16 16:00 09/16/16 16:00 09/16/16 16:00 Constitutional: no apparent distress, not in pain, chronically ill appearing, obese, uncomfortable Eyes: PERRL, anicteric sclera, EOMI Ears, Nose, Mouth, Throat: moist mucous membranes, hearing normal, ears appear normal, no oral mucosal ulcers Cardiovascular: regular rate and rhythym, no murmur, rub, or gallop, No edema Respiratory: reduced air movement (On expiration bilaterally), expiratory wheeze , No inspiratory crackles, No bronchial breath sounds, No respiratory distress Gastrointestinal: normoactive bowel sounds, soft, non-tender abdomen, no palpable masses Skin: warm, normal color, no rashes or abrasions, no fluctuance, no induration, No mottled Neurologic: AAOx3, No facial droop Psychiatric: not encephalopathic, thought process linear, anxious, No agitated Lab Data & Imaging Review Visualized and Interpreted Chest x-ray results: Yes Chest X-Ray results: no infiltrate Visualized and Interpreted EKG results: Yes EKG Interpretation: Positive for: other (Sinus tachycardia) Assessment & Plan Assessment: 60-year-old female presenting with acute COPD exacerbation in the setting of medication/oxygen non adherence Plan: 1. COPD exacerbation. Acute, new problem this provider, further workup indicated. Evidenced by diffuse expiratory wheezes with reduced expiratory air movement, patient's tachypnea has resolved with BiPAP therapy and DuoNeb treatment. Most likely cause is medication and oxygen non adherence after discharge 3 days prior. -remove BiPAP at this time, placed on supplemental oxygen, get ABG to determine whether she is truly hypercapnic or acidotic on her recommended home requirement of oxygen -if not, continue on supplemental oxygen 3-5 L nasal cannula -placed on scheduled duo nebs, p.r.n. albuterol -reinitiate on prednisone, 40 mg daily, can begin taper tomorrow depending on response -hold on further antibiotics -reviewed discharge summary by Dr. Julio Barrios, outside records from 09/13/2016 , characterizing her most recent COPD exacerbation as heavily related to her underlying anxiety and Ativan was prescribed at time of discharge -although the patient is currently anxious, she has been taking Ativan approximately twice daily and it does not appear that this is a purely anxiety motivated presentation -I believe the most likely reason she is here is because of her medication and oxygen non adherence, resulting in incomplete treatment of her initial condition -case management should be contacted in the morning to help provide her prednisone, med in hand prior to discharge 2. SHARON. Continue CPAP at night 3. Bipolar disease. Unclear type, continue home medications Diet. Regular Prophylaxis. High risk patient, Lovenox 40 Code. Full Disposition. Anticipated discharge is 09/17/2016, pending improvement and stabilization of above. I have discussed patient's presentation with Dr. Raleigh Antonio in the emergency department, we both agree that given the patient's expiratory wheezes and shortness of breath still remain prominent, she does require stabilization and observation overnight with re-initiation of steroids, oxygen, duo nebs, monitoring to ensure that she does not clinically worsen.
[2016-09-16] MEDS: LORazepam 0.5 MG TAB PO PRN (17:00)
[2016-09-16] MEDS ORDERED: QUEtiapine FUMARATE 25 MG TAB PO PRN (17:24)
[2016-09-16] MEDS: predniSONE 20 MG TAB PO SCH (17:34)
[2016-09-16] MEDS: PROMETHAZINE HCL 12.5 MG SUPPR PR PRN (19:51)
[2016-09-16] MEDS: traZODone 100 MG TAB PO SCH (19:54)
[2016-09-16] MEDS: DULoxetine 30 MG CAP PO SCH (19:54)
[2016-09-16] MEDS: QUEtiapine FUMARATE 100 MG TAB PO SCH (19:54)
[2016-09-16] MEDS: CETIRIZINE 10 MG TAB PO SCH (19:55)
[2016-09-16] MEDS ORDERED: traMADol 50 MG TAB PO PRN (20:08)
[2016-09-16] MEDS: IPRATROPIUM/ALBUTEROL 3 ML DEYVIAL IH SCH (21:32)
[2016-09-16] MEDS: BUDESONIDE/FORMOTEROL 160/4.5 60 PUFFS/MDI IH SCH (21:36)
[2016-09-16 21:51] LABS: BASE EXCESS 2.1 mEq/L (-2.5-2.5); BICARBONATE 26 mEq/L (22-26); MEASURED OXYGEN SATURATION 97 % (92-95); PCO2 38 mmHg (34-38); PO2 91 mmHg (65-75); TCO2 27 mEq/L (23-27)
[2016-09-16 21:52] LABS: O2 CONCENTRATIION 28 % (0-100); P/F RATIO 325 RATIO
[2016-09-16] MEDS: GABAPENTIN 400 MG CAP PO SCH (22:18)
[2016-09-17] MEDS: IPRATROPIUM/ALBUTEROL 3 ML DEYVIAL IH SCH ×4 (05:33→21:48)
[2016-09-17 05:43] LABS: ADD DIFF? YES; ADD MORPH? NO; ADD SCAN? NO; ATYPICAL LYMPHOCYTE FLAG 0 (0-99); FRAGMENT RBC FLAG 0 (0-99); HEMATOCRIT 33.1 % (38.0-47.0); HEMOGLOBIN 10.9 g/dL (12.6-16.3); LEFT SHIFT FLG 40 (0-99); LIPEMIA HEMOLYSIS FLAG 80 (0-99); MEAN CELL HEMOGLOBIN 31.2 pg (27.9-34.1); MEAN CELL HEMOGLOBIN CONCENTR. 32.9 g/dL (32.4-36.7); MEAN CELL VOLUME 94.8 fL (81.5-99.8); MEAN PLATELET VOLUME 9.1 fL (8.7-11.7); PLATELET CLUMPS FLAG 10 (0-99); PLATELET COUNT 265 10^3/uL (150-400); RED BLOOD CELL COUNT 3.49 10^6/uL (4.18-5.33); RED CELL DISTRIBUTION WIDTH 13.3 % (11.5-15.2)
[2016-09-17 06:01] LABS: ANION GAP 7 mEq/L (8-16); CALCIUM 9.3 mg/dL (8.5-10.4); CARBON DIOXIDE 23 mEq/l (22-31); CHLORIDE 106 mEq/L (97-110); CREATININE 0.7 mg/dL (0.6-1.0); GLOMERULAR FILTRATION RATE > 60; GLUCOSE 155 mg/dL (70-100); POTASSIUM 4.3 mEq/L (3.5-5.2); SODIUM 136 mEq/L (134-144)
[2016-09-17 06:17] LABS: PLATELET ESTIMATE ADEQUATE (ADEQ)
[2016-09-17] MEDS ORDERED: oxyCODONE IR 5 MG TAB PO PRN (06:26)
[2016-09-17] MEDS: ENOXAPARIN 40 MG/0.4 ML SYR SC SCH (07:59)
[2016-09-17] MEDS: ASPIRIN EC 325 MG TAB PO SCH (08:00)
[2016-09-17] MEDS: predniSONE 20 MG TAB PO SCH (08:00)
[2016-09-17] MEDS: GABAPENTIN 400 MG CAP PO SCH ×3 (08:00→20:21)
[2016-09-17] MEDS: ATORVASTATIN CALCIUM 20 MG TAB PO SCH (08:00)
[2016-09-17] MEDS: LORazepam 0.5 MG TAB PO PRN ×2 (08:00→20:21)
[2016-09-17] MEDS: PROMETHAZINE HCL 12.5 MG SUPPR PR PRN (08:00)
[2016-09-17] MEDS: METOPROLOL SUCCINATE XR 25 MG TAB PO SCH (08:00)
[2016-09-17] MEDS ORDERED: Herbals/Supplements -Info Only PO SCH (09:00)
[2016-09-17] MEDS: BUDESONIDE/FORMOTEROL 160/4.5 60 PUFFS/MDI IH SCH ×2 (09:57→21:48)
--- NOTE | 2016-09-17 10:35 | HOSPPROG ---
Hospitalist Progress Note Assessment/Plan: Ana is a 60 y/o female with underlying bipolar disease who presented to the ER with increase shortness of breath. She was recently dc and did not wear her supplemental oxygen nor filled prescription for steroids. She has been on her home medications as well as breathing treatments. This is her 4th admission since August of 2016. In reviewing previous notes, the patient may be returning frequently due to anxiety. Reviewed her care with Dr Barrios who dc her several days ago/ a script for Ativan was given to help with her anxiety. *COPD exacerbation/acute had been on BIPAP ABG is stable, is not hypercapnic on 2 liters *Concern for noncompliance patient didn't get O2 or steroids will discuss with CM to make sure she gets f/u she realizes this is an issue *leukocytosis likely steroid induced/reviewed her previous admits and has had high wbc counts patient says she is feeling poorly will check a procalcitonin /having high wbc counts consistently *an[facility] will ask CM to help arrange for her to get close f/u she is requesting IV Ativan, IV phenegran and fentanyl/ I've told her that I would address her pain, etc, but would not order these meds on oral Ativan *SHARON *bipolar disorder suspect the prednisone causes this to worsen *morbid obesity with a BMI of 33.5 *dvt prophylaxis: LMWH *Plan: Ana is feeling poorly, suspect if I dc her she will return to the ER today or tomorrow morning/ will check a PCT level, get CM actively involved. She will require another midnight stay. Also, has family in [place]. She is hopeful to return there where she can get more support. Subjective: Ana said she is feeling ill. Objective: Vital Signs Temp Pulse Resp BP Pulse Ox 36.6 C 95 20 131/79 H 94 09/17/16 07:42 09/17/16 09:58 09/17/16 09:58 09/17/16 07:42 09/17/16 09:58 Laboratory Results 09/17/16 05:20 09/17/16 05:20 09/16/16 09/17/16 09/18/16 05:59 05:59 05:59 Intake Total 450 Balance 450 - Physical Exam Constitutional: obese Eyes: PERRL Ears, Nose, Mouth, Throat: hearing normal Cardiovascular: regular rate and rhythym Respiratory: no respiratory distress, reduced air movement (bibasilar), expiratory wheeze (few scattered) Skin: warm Musculoskeletal: no muscle tenderness Neurologic: AAOx3 Psychiatric: interacting appropriately, anxious ICD10 Worksheet Patient Problems: Problems Problem Status Onset COPD exacerbation Acute COPD exacerbation Acute Failure of outpatient treatment Acute Leukocytosis Acute Respiratory distress Acute Shortness of breath Acute
[2016-09-17] MEDS ORDERED: IBUPROFEN 200 MG TAB PO PRN (15:58)
[2016-09-17] MEDS: QUEtiapine FUMARATE 100 MG TAB PO SCH (20:20)
[2016-09-17] MEDS: traZODone 100 MG TAB PO SCH (20:20)
[2016-09-17] MEDS: CETIRIZINE 10 MG TAB PO SCH (20:21)
[2016-09-17] MEDS: DULoxetine 30 MG CAP PO SCH (20:21)
[2016-09-18] MEDS ORDERED: predniSONE 20 MG TAB PO SCH
[2016-09-18 05:27] LABS: ADD DIFF? YES; ADD MORPH? NO; ADD SCAN? NO; ATYPICAL LYMPHOCYTE FLAG 0 (0-99); FRAGMENT RBC FLAG 0 (0-99); HEMATOCRIT 35.1 % (38.0-47.0); HEMOGLOBIN 11.2 g/dL (12.6-16.3); LEFT SHIFT FLG 20 (0-99); LIPEMIA HEMOLYSIS FLAG 80 (0-99); MEAN CELL HEMOGLOBIN 30.9 pg (27.9-34.1); MEAN CELL HEMOGLOBIN CONCENTR. 31.9 g/dL (32.4-36.7); MEAN PLATELET VOLUME 9.2 fL (8.7-11.7); PLATELET CLUMPS FLAG 0 (0-99); PLATELET COUNT 291 10^3/uL (150-400); RED BLOOD CELL COUNT 3.62 10^6/uL (4.18-5.33); RED CELL DISTRIBUTION WIDTH 13.5 % (11.5-15.2)
[2016-09-18] MEDS: IPRATROPIUM/ALBUTEROL 3 ML DEYVIAL IH SCH ×3 (06:13→17:12)
[2016-09-18 06:23] LABS: PLATELET ESTIMATE ADEQUATE (ADEQ); TOXIC GRANULATION PRESENT
[2016-09-18] MEDS: ENOXAPARIN 40 MG/0.4 ML SYR SC SCH (09:56)
[2016-09-18] MEDS: ASPIRIN EC 325 MG TAB PO SCH (09:56)
[2016-09-18] MEDS: METOPROLOL SUCCINATE XR 25 MG TAB PO SCH (09:56)
[2016-09-18] MEDS: predniSONE 20 MG TAB PO SCH (09:56)
[2016-09-18] MEDS: ATORVASTATIN CALCIUM 20 MG TAB PO SCH (09:56)
[2016-09-18] MEDS: GABAPENTIN 400 MG CAP PO SCH ×2 (09:56→16:23)
[2016-09-18] MEDS: LORazepam 0.5 MG TAB PO PRN (10:04)
--- NOTE | 2016-09-18 10:14 | HOSPPROG ---
Hospitalist Progress Note Assessment/Plan: Ana is a 60 y/o female with underlying bipolar disease who presented to the ER with increase shortness of breath. She was recently dc and did not wear her supplemental oxygen nor filled prescription for steroids. She has been on her home medications as well as breathing treatments. This is her 4th admission since August of 2016. In reviewing previous notes, the patient may be returning frequently due to anxiety. *Chest pain called by RN at 10:10/ ordered stat EKG labs, ntg given with some relief has GERD in addition/ trial of GI cocktail patient has significant anxiety which could be contributing to this *COPD exacerbation/acute had been on BIPAP ABG is stable, is not hypercapnic on 2 liters *Concern for noncompliance patient didn't get O2 or steroids will discuss with CM to make sure she gets f/u she realizes this is an issue *leukocytosis likely steroid induced/reviewed her previous admits and has had high wbc counts PCT level is low/not likely an infection *anxiety is seen at [facility] patient has an appt set up with CLERICAL SUPERVISOR and BH on 09/24 at [facility] she is requesting IV Ativan, IV phenegran and fentanyl/ I've told her that I would address her pain, etc, but would not order these meds on oral Ativan *SHARON *bipolar disorder suspect the prednisone causes this to worsen *morbid obesity with a BMI of 33.5 *dvt prophylaxis: LMWH *Plan: will get stat labs, ekg, Reviewed her care with Dr Arora. At this time, will hold off tx to PCU. Subjective: Ana said pain is in the center of her chest radiates to her back Objective: Vital Signs Temp Pulse Resp BP Pulse Ox 36.4 C 105 H 20 113/76 94 09/18/16 07:54 09/18/16 07:54 09/18/16 07:54 09/18/16 07:54 09/18/16 07:54 Laboratory Results 09/18/16 04:59 09/17/16 09/18/16 09/19/16 05:59 05:59 05:59 Intake Total 300 Balance 300 - Physical Exam Constitutional: obese, uncomfortable, No not in pain Eyes: PERRL Ears, Nose, Mouth, Throat: hearing normal Cardiovascular: regular rate and rhythym, no murmur, rub, or gallop Respiratory: expiratory wheeze (mainly in her throat area/ lungs diminished at the bases) Skin: warm, normal color Musculoskeletal: full muscle strength Neurologic: AAOx3 Psychiatric: interacting appropriately ICD10 Worksheet Patient Problems: Problems Problem Status Onset COPD exacerbation Acute COPD exacerbation Acute Failure of outpatient treatment Acute Leukocytosis Acute Respiratory distress Acute Shortness of breath Acute
[2016-09-18] MEDS ORDERED: NITROGLYCERIN 0.4 MG BTL SL ONE ×2 (10:17→10:19)
[2016-09-18] MEDS ORDERED: MAG HYDROX/AL HYDROX/SIMETH 30 ML UDCUP PO ONE (10:33)
[2016-09-18] MEDS ORDERED: LIDOCAINE 2% VISCOUS 15 ML UDCUP PO ONE (10:33)
--- NOTE | 2016-09-18 10:40 | CPEKG ---
Heart Rate: 96 RR Interval: 625 P-R Interval: 144 QRSD Interval: 86 QT Interval: 336 QTC Interval: 425 P [place]: 61 QRS [place]: 70 T Wave [place]: 75 EKG Severity - NORMAL ECG - EKG Impression: SINUS RHYTHM Electronically Signed By: Manuel Petersen 18-Sep-2016 15:28:24
[2016-09-18] MEDS: BUDESONIDE/FORMOTEROL 160/4.5 60 PUFFS/MDI IH SCH (10:47)
[2016-09-18 11:07] LABS: CREATINE KINASE-MB FRACTION 0.65 ng/mL (0-3.19); TROPONIN I < 0.012 ng/mL (0-0.034)
[2016-09-18] MEDS: PROMETHAZINE HCL 12.5 MG SUPPR PR PRN (14:37)
[2016-09-18 16:10] VITALS: BP 128/69; TEMP 97.9
--- NOTE | 2016-09-18 16:23 | GDS ---
[f rep st] DISCHARGE SUMMARY DISCHARGE DIAGNOSES: 1. Chest pain. 2. Chronic obstructive pulmonary disease exacerbation, acute. 3. Concern for noncompliance with medications. 4. Leukocytosis. 5. Anxiety. 6. Obstructive sleep apnea. 7. Bipolar disorder. 8. Morbid obesity, with a body mass index of 33.5. BRIEF HISTORY: The patient is a 60-year-old female; this will be her fourth admission to [facility] since August of this year. She presented with acute shortness of breath. Her symptoms are exacerbated when ambulating up the stairs, and was modestly alleviated by breathing treatments. She had been discharged prior to this admission, and had not been wearing her oxygen. Also, she did not get her prescription filled for steroids. Today on discharge , she will get her steroids filled at the hospital. Oxygen has been set up at her home environment. HOSPITAL COURSE: 1. Chest pain. This occurred early this morning. 12-lead EKG was performed, which showed sinus rhythm. She was given nitroglycerin with some relief. Her cardiac enzymes are negative. I suspect that she has significant underlying anxiety that was contributing to this. Her chest pain has since resolved. 2. Acute COPD exacerbation. An arterial blood gas was performed. She is not hypercapnic. She is on 2 L. On room air at rest her oxygen levels are 94%. 3. Concern for noncompliance. She is currently living at the [facility] house. Her prescription for prednisone will be filled prior to discharge. 4. Leukocytosis. This could be steroid induced. A PCT was performed. This is not likely an infection. She needs to get further evaluation once she is off the steroids. 5. Anxiety. An appointment has been set up with her at [facility] on September 24 for followup care with a nurse practitioner and behavioral Health nurse. 6. Obstructive sleep apnea. 7. Bipolar disorder. Stable. 8. Morbid obesity impacting all the above. PENDING LABS AND TESTS: None. CONDITION ON DISCHARGE: Stable. VITAL SIGNS: Blood pressure is 113/76, respiratory rate is 20, pulse of 90, O2 saturations on 2 L are 94%. Temperature is 36.4 Celsius. DISCHARGE INSTRUCTIONS: 1. To follow up with [facility]. 2. To take prednisone as instructed. 3. To wear the oxygen around the clock. Greater than 30 minutes discharging and coordinating care. /[id number]/MODL MTDD
[2016-09-18] MEDS ORDERED: LORazepam 0.5 MG TAB PO ONE (16:32)
[2016-09-18 17:15] VITALS: PULSE 98; RESP 20; O2SAT 90
[2016-09-20 00:19] LABS: HEMOGLOBIN A1C 6.4 % (4.0-6.0)
== END 2016-09-18 17:18 | disposition home or self-care (01) | DRG 192 ==
LOC: EDUNIT# → F3E 17:15 → OBSVTOIN 09-17 14:54
PROVIDERS: ADMIT Internal Medicine; ATTEND Internal Medicine
DX: J44.1 Chronic obstructive pulmonary disease with (acute) exacerbation (principal); F41.9 Anxiety disorder, unspecified; G47.33 Obstructive sleep apnea (adult) (pediatric); F31.9 Bipolar disorder, unspecified; E66.01 Morbid (severe) obesity due to excess calories; Z68.33 Body mass index [BMI] 33.0-33.9, adult; Z91.14 Patient's other noncompliance with medication regimen
CPT/HCPCS: 96374; 97116-GP; 97161-GP; G0378; J1650; J2405; J2550; J7512

== ENCOUNTER 2016-09-22 10:58 | Observation (INO) | payer MEDICAID ==
--- NOTE | 2016-09-22 11:13 | CPEKG ---
Heart Rate: 103 RR Interval: 583 P-R Interval: 144 QRSD Interval: 82 QT Interval: 332 QTC Interval: 435 P [place]: 66 QRS [place]: 59 T Wave [place]: 67 EKG Severity - OTHERWISE NORMAL ECG - EKG Impression: SINUS TACHYCARDIA Electronically Signed By: Adrianna Prabhakar 22-Sep-2016 18:16:10
--- NOTE | 2016-09-22 12:25 | EDPHY ---
H & P Stated Complaint: Asthma exaserbation, over using albuteral inhaler, out of duo neb Time Seen by Provider: 09/22/16 12:18 HPI/ROS: CHIEF COMPLAINT: Shortness of breath. HISTORY OF PRESENT ILLNESS: The patient is a 60-year-old female with a history of COPD and asthma who presents with shortness of breath that began this morning. She has been admitted multiple times in the past few weeks for COPD exacerbation and her last discharge was 4 days ago. She has been on a Prednisone taper since then. She uses an Albuterol inhaler and has a nebulizer at home she uses every 4 hours. Last night she had to use her nebulizer overnight which is unusual for her. She admits associated mild chest tightness and pressure. She admits abdominal pain, nausea, and cough. No fever, chills, palpitations, vomiting, diarrhea, urinary complaints, headache, lightheadedness. REVIEW OF SYSTEMS: Aside from elements discussed in the HPI, a comprehensive 10-point review of systems was reviewed and is negative. PAST MEDICAL HISTORY: COPD, hypertension, asthma, RA, GERD, CAD, CHF, bipolar disorder, IA, cholecystectomy. SOCIAL HISTORY: Nonsmoker, no alcohol use. VITAL SIGNS: Reviewed by me GENERAL: Overweight, prolonged expiratory phase. Audible wheezing when talking. Stigmata of chronic steroid use. HEENT: Atraumatic. Eyes: No icterus, no injection. Mouth: moist mucous membranes. No erythema or lesions. Neck: supple with no adenopathy. LUNGS: No rhonchi or rales. Prolonged expiratory phase. Wheezing throughout. Audible wheezes with talking. CARDIAC: Regular rate and rhythm, no rubs, murmurs or gallops. ABDOMEN: Soft, nondistended, bowel sounds normal. Mild diffuse tenderness. BACK: No CVA tenderness. EXTREMITIES: No trauma. No edema. Range of motion is normal throughout. NEURO: Alert and oriented, grossly nonfocal. SKIN: Warm and dry, no rash. Scattered ecchymoses. PSYCHIATRIC: Normal mentation, no agitation. Portions of this note were transcribed by a senior medical director. I personally performed a history, physical exam, medical decision making, and confirmed accuracy of information the transcribed note. Source: Patient Exam Limitations: No limitations - Personal History Current Tetanus Diphtheria and Acellular Pertussis (TDAP): Unsure - Medical/Surgical History Hx Asthma: Yes Hx Chronic Respiratory Disease: Yes Hx Diabetes: No Hx Cardiac Disease: Yes Hx Renal Disease: No Hx Cirrhosis: No Hx Alcoholism: No Hx HIV/AIDS: No Hx Splenectomy or Spleen Trauma: No Other PMH: IA, CAD, COPD, asthma, home O2 (apria), GERD, RA, SHARON, hiatal hernia , crohns, neuropathy, hysterectomy, choly, t&a, bipolar - Social History Smoking Status: Former smoker Constitutional: Initial Vital Signs Heart Rate 108 H 09/22/16 11:02 Respiratory Rate 26 H 09/22/16 11:02 Blood Pressure 133/87 H 09/22/16 11:02 O2 Sat (%) 98 09/22/16 11:02 O2 Delivery Mode Room Air O2 (L/minute) 2 Allergies/Adverse Reactions: benztropine [From Cogentin] Allergy (Verified 09/12/16 00:11) codeine Allergy (Verified 09/12/16 00:11) iodine Allergy (Verified 09/12/16 00:11) morphine Allergy (Verified 09/12/16 00:11) Penicillins Allergy (Verified 09/12/16 00:11) Sulfa (Sulfonamide Antibiotics) Allergy (Verified 09/12/16 00:11) Home Medications: Medication Instructions Recorded Aspirin EC [Aspirin EC 325 mg (*)] 325 mg PO DAILY 09/03/16 Atorvastatin Calcium [Lipitor 20 20 mg PO DAILY 09/03/16 mg (*)] Budesonide/Formoterol 160/4.5 1 puffs IH BID 09/03/16 [Symbicort 160-4.5 Mcg Inh (*)] DULoxetine [Cymbalta 30 MG (*)] 90 mg PO HS 09/03/16 Metoprolol Succinate 25 mg PO DAILY 09/03/16 Gabapentin [Neurontin 300 MG (*)] 1,200 mg PO TID 09/04/16 Herbals/Supplements -Info Only 1 ea PO DAILY 09/04/16 Albuterol [Proventil Inhaler HFA 1 - 2 puffs IH Q4 PRN #1 mdi 09/05/16 (*)] Ipratropium/Albuterol [Duoneb (*)] 3 ml IH Q6 PRN #10 deyvial 09/05/16 QUEtiapine FUMARATE [Seroquel 100 100 mg PO HS #30 tab 09/11/16 mg (*)] QUEtiapine FUMARATE [Seroquel 25 25 mg PO Q6 PRN #30 tab 09/11/16 mg (*)] traZODone [traZODONE 100MG (*)] 100 mg PO HS 09/12/16 LORazepam [Ativan (*)] 1 mg PO BID PRN #90 tab 09/13/16 Promethazine HCl [Phenergan 12.5mg 12.5 mg OK Q6 PRN #30 suppr 09/13/16 supp (*)] Tiotropium Inhaler [Spiriva 18 mcg IH DAILY 09/16/16 Handihaler] Acetaminophen [Tylenol 325mg (*)] 650 mg PO Q4HRS PRN #0 tab 09/18/16 predniSONE 40 mg PO DAILY #15 tablet 09/18/16 Medical Decision Making - Diagnostics Imaging Results: Imaging Impressions Chest X-Ray 09/22/16 11:06 Impression: COPD with mild perihilar bronchitis, but no focal infiltrate, or substantial change from 09/18/2016. Abdomen CT 09/22/16 12:56 Impression: 1. Nonobstructive left nephrolithiasis. 2. No evidence for appendicitis or diverticulitis. 3. Status post cholecystectomy. Results called and discussed with Dr. Adrianna Prabhakar, on September 22, 2016 at 1429 hours. Imaging: Discussed imaging studies w/ weight caller Radiologist ED Course/Re-evaluation: 60-year-old female with history of COPD, asthma, CHF, CAD, IA presents with worsening shortness of breath. She has been admitted multiple times for COPD exacerbations in the past 3 weeks with presentations very similar to today's. She wheezes audibly when she talks and has a prolonged expiratory phase. O2 saturation is 94 on nasal cannula. An IV was established and labs ordered. EKG, chest x-ray ordered. DuoNeb, Proventil neb administered. 100mcg IV Fentanyl administered for pain. EKG is nonischemic. Troponin is negative. D-dimer is negative. 12-LEAD EKG: Please see the full report in [facility]. My interpretation: Sinus tachycardia rate 103. [place] [id number]. She reports ongoing, mild, diffuse abdominal discomfort. Abdominal CT was ordered to evaluate for intra-abdominal pathology. Abdominal CT results conveyed to me negative by the staff radiologist. Chest x-ray does not demonstrate any pneumonia. Patient is resting much more comfortably after receiving neb treatments and steroids. 1450: Consulted with Dr. Davis, hospitalist. She accepts admission. Differential Diagnosis: Differential diagnosis for the patient's shortness of breath was considered including but not limited to pulmonary infectious processes, COPD exacerbation, pulmonary emboli, pulmonary edema, congestive heart failure, and cardiac causes. - Data Points Laboratory Results: Laboratory Results 09/22/16 11:40 09/22/16 11:40 09/22/16 09/22/16 09/22/16 11:40 11:40 11:40 WBC 22.19 10^3/uL H 10^3/uL (3.80-9.50) RBC 3.78 10^6/uL L 10^6/uL (4.18-5.33) Hgb 11.8 g/dL L g/dL (12.6-16.3) Hct 35.9 % L % (38.0-47.0) MCV 95.0 fL fL (81.5-99.8) MCH 31.2 pg pg (27.9-34.1) MCHC 32.9 g/dL g/dL (32.4-36.7) RDW 13.6 % % (11.5-15.2) Plt Count 277 10^3/uL 10^3/uL (150-400) MPV 9.1 fL fL (8.7-11.7) Neut % (Auto) Not Reported Lymph % (Auto) Not Reported [place] % (Auto) Not Reported Eos % (Auto) Not Reported Baso % (Auto) Not Reported Nucleat RBC Rel Count 0.0 % % (0.0-0.2) Absolute Neuts (auto) Not Reported Absolute Lymphs (auto) Not Reported Absolute Monos (auto) Not Reported Absolute Eos (auto) Not Reported Absolute Basos (auto) Not Reported Absolute Nucleated RBC 0.00 10^3/uL 10^3/uL (0-0.01) Immature Gran % Not Reported Seg Neutrophils % 66 % % Band Neutrophils % 5 % % Lymphocytes % 24 % % Monocytes % 5 % % Immature Gran # Not Reported Absolute Seg Neuts 14.65 10^/uL H 10^/uL (1.70-6.50) Absolute Band Neuts 1.11 10^3/uL H 10^3/uL (0.00-0.70) Absolute Lymphocytes 5.33 10^3/uL H 10^3/uL (1.00-3.00) Absolute Monocytes 1.11 10^3/uL H 10^3/uL (0.30-0.80) RBC/WBC/PLT Morphology NORMAL (NORMAL) Platelet Estimate ADEQUATE (ADEQ) D-Dimer 0.30 ug/mLFEU ug/mLFEU (0.00-0.50) Sodium 136 mEq/L mEq/L (134-144) Potassium 4.2 mEq/L mEq/L (3.5-5.2) Chloride 101 mEq/L mEq/L (97-110) Carbon Dioxide 25 mEq/l mEq/l (22-31) Anion Gap 10 mEq/L mEq/L (8-16) BUN 28 mg/dL H mg/dL (7-23) Creatinine 1.0 mg/dL mg/dL (0.6-1.0) Estimated GFR 57 Glucose 107 mg/dL H mg/dL (70-100) Calcium 9.5 mg/dL mg/dL (8.5-10.4) Total Bilirubin 0.8 mg/dL mg/dL (0.1-1.4) Conjugated Bilirubin 0.4 mg/dL mg/dL (0.0-0.5) Unconjugated Bilirubin 0.4 mg/dL mg/dL (0.0-1.1) AST 15 IU/L IU/L (14-46) ALT 41 IU/L IU/L (9-52) Alkaline Phosphatase 66 IU/L IU/L (38-126) Troponin I < 0.012 ng/mL ng/mL (0-0.034) Total Protein 6.2 g/dL L g/dL (6.3-8.2) Albumin 4.0 g/dL g/dL (3.5-5.0) Medications Given: Discontinued Medications Albuterol (Proventil Neb) 3 ml IH EDNOW ONE Stop: 09/22/16 12:35 Last Admin: 09/22/16 13:00 Dose: 3 ml Albuterol/Ipratropium (Duoneb) 3 ml IH EDNOW ONE Stop: 09/22/16 12:35 Last Admin: 06/14/17 12:45 Dose: 3 ml Diphenhydramine HCl (Benadryl Injection) 50 mg IVP EDNOW ONE Stop: 09/22/16 13:40 Last Admin: 09/22/16 13:47 Dose: 50 mg Fentanyl (Sublimaze) 100 mcg IVP EDNOW ONE Stop: 09/22/16 12:39 Last Admin: 09/22/16 12:49 Dose: Not Given Fentanyl (Sublimaze) 75 mcg IVP EDNOW ONE Stop: 09/22/16 12:41 Last Admin: 09/22/16 12:50 Dose: 75 mcg Methylprednisolone Sodium Succinate (Solu-Medrol) 125 mg IVP EDNOW ONE Stop: 09/22/16 12:35 Last Admin: 09/22/16 12:40 Dose: 125 mg Prednisone (Prednisone) 40 mg PO DAILY BARBARA Stop: 03/21/17 15:44 Last Admin: 09/22/16 15:57 Dose: Not Given Promethazine HCl (Phenergan) 12.5 mg IVP EDNOW ONE Stop: 09/22/16 12:39 Last Admin: 09/22/16 12:42 Dose: 12.5 mg Promethazine HCl (Phenergan) 12.5 mg IVP EDNOW ONE Stop: 09/22/16 12:41 Last Admin: 09/22/16 12:49 Dose: Not Given Departure - Departure Disposition: [facility] Inpatient Acute Clinical Impression: COPD exacerbation Abdominal pain Qualifiers: Abdominal location: generalized Qualified Code(s): R10.84 - Generalized abdominal pain Condition: Fair Report Scribed for: Adrianna Prabhakar Report Scribed by: Ildefonso Mohan Date of Report: 09/22/16 Time of Report: 12:25
[2016-09-22] MEDS ORDERED: methylPREDNISolone SOD SUCC 125 MG/2 ML VIAL IVP ONE (12:34)
[2016-09-22] MEDS ORDERED: ALBUTEROL 3 ML DEYVIAL IH ONE (12:34)
[2016-09-22] MEDS ORDERED: IPRATROPIUM/ALBUTEROL 3 ML DEYVIAL IH ONE (12:34)
[2016-09-22] MEDS ORDERED: PROMETHAZINE HCL 25 MG/ML INJ IVP ONE ×2 (12:38→12:40)
[2016-09-22] MEDS ORDERED: fentaNYL 100 MCG/2 ML INJ IVP ONE ×2 (12:38→12:40)
[2016-09-22 12:39] LABS: ADD DIFF? YES; ADD MORPH? NO; ADD SCAN? NO; ATYPICAL LYMPHOCYTE FLAG 0 (0-99); FRAGMENT RBC FLAG 0 (0-99); HEMATOCRIT 35.9 % (38.0-47.0); HEMOGLOBIN 11.8 g/dL (12.6-16.3); LEFT SHIFT FLG 10 (0-99); LIPEMIA HEMOLYSIS FLAG 80 (0-99); MEAN CELL HEMOGLOBIN 31.2 pg (27.9-34.1); MEAN CELL HEMOGLOBIN CONCENTR. 32.9 g/dL (32.4-36.7); MEAN PLATELET VOLUME 9.1 fL (8.7-11.7); PLATELET CLUMPS FLAG 0 (0-99); PLATELET COUNT 277 10^3/uL (150-400); RED BLOOD CELL COUNT 3.78 10^6/uL (4.18-5.33); RED CELL DISTRIBUTION WIDTH 13.6 % (11.5-15.2)
[2016-09-22] MEDS ORDERED: IPRATROPIUM/ALBUTEROL 3 ML DEYVIAL ONE (12:40)
[2016-09-22 12:52] LABS: ALANINE AMINOTRANSFERASE 41 IU/L (9-52); ALKALINE PHOSPHATASE 66 IU/L (38-126); ANION GAP 10 mEq/L (8-16); ASPARTATE AMINOTRANSFERASE 15 IU/L (14-46); BILIRUBIN,TOTAL 0.8 mg/dL (0.1-1.4); BILIRUBIN-CONJUGATED 0.4 mg/dL (0.0-0.5); BILIRUBIN-UNCONJUGATED 0.4 mg/dL (0.0-1.1); CALCIUM 9.5 mg/dL (8.5-10.4); CARBON DIOXIDE 25 mEq/l (22-31); CHLORIDE 101 mEq/L (97-110); GLOMERULAR FILTRATION RATE 57; GLUCOSE 107 mg/dL (70-100); POTASSIUM 4.2 mEq/L (3.5-5.2); SODIUM 136 mEq/L (134-144); TOTAL PROTEIN 6.2 g/dL (6.3-8.2)
[2016-09-22 13:03] LABS: TROPONIN I < 0.012 ng/mL (0-0.034)
[2016-09-22] MEDS ORDERED: IOPAMIDOL (ISOVUE-300) 100 ML BTL ONE (13:07)
[2016-09-22 14:15] LABS: PLATELET ESTIMATE ADEQUATE (ADEQ)
[2016-09-22] MEDS ORDERED: ACETAMINOPHEN 325 MG TAB PO PRN (14:52)
[2016-09-22] MEDS ORDERED: ONDANSETRON DISINTEGRATING 4 MG TAB PO PRN (14:52)
[2016-09-22] MEDS ORDERED: ONDANSETRON 4 MG/2 ML VIAL IVP PRN (14:52)
[2016-09-22] MEDS ORDERED: predniSONE 20 MG TAB PO SCH (15:45)
--- NOTE | 2016-09-22 16:29 | GHP ---
[f rep st] HISTORY AND PHYSICAL DATE OF ADMISSION: 09/22/2016 CHIEF COMPLAINT: COPD exacerbation, shortness of breath. HISTORY OF PRESENT ILLNESS: Patient is a 60-year-old female with history of COPD, asthma, SHARON, not using CPAP, who was recently hospitalized, 09/16/2016-01/2017 for COPD exacerbation. At that time, she had not been consistently wearing her oxygen at home, and had not filled her prescriptions for steroids. Since discharge she states that she has been using her inhalers, but did run out of DuoNebs last week, which she was using 1-2 times a week. She was to dose reduce prednisone from 40 to 20 today, but had not taken it yet today. She lives in safe house and says the carpets were shampooed yesterday and wonders if that was a trigger. Awoke this morning at 3 a.m. shortness of breath. She denies any fevers, chills , or sweats. Experienced some nausea and belly pain that began yesterday. It was crampy and stabbing around the umbilicus. She had a normal BM today. Very fatigued yesterday, and had headache today. She has had increased urinary frequency. REVIEW OF SYSTEMS: I completed a 10-point review of systems, negative except as noted in HPI. PAST MEDICAL HISTORY: COPD, chronic hypoxemic respiratory failure, 3 L at night. SHARON, not on CPAP because son gave away her CPAP machine, anxiety. Has had 4 admissions since August for COPD, bipolar disorder, obesity. Echo, September 2016 , just shows diastolic heart failure. Neuropathy. CAD, no history of stent. PAST SURGICAL HISTORY: Cholecystectomy, tonsillectomy, adenoidectomy, hysterectomy. SOCIAL HISTORY: Lives in a safe house. Smoked 40 years, a pack a day, quit June 2016. No alcohol or drugs. ALLERGIES: Iodine, sulfa, Cogentin, codeine, penicillin. HOME MEDICATIONS: Trazodone 100 mg q.h.s., prednisone 40 mg daily, Spiriva, quetiapine 25 mg q.6 hours p.r.n., Seroquel 100 mg q.h.s., promethazine, metoprolol 25 daily, Ativan 1 mg b.i.d., DuoNeb as needed, gabapentin 1200 t.i.d., Cymbalta 90 mg q.h.s., Symbicort, atorvastatin 20 mg daily, aspirin 325 daily, albuterol as needed. Tylenol as needed. FAMILY HISTORY: Positive for CAD. PHYSICAL EXAM: VITAL SIGNS: Temperature 36.7, blood pressure is 140/76, heart rate 102, 18%, 92% on room air. GENERAL: Patient is obese, in no acute distress. HEENT: PERRLA. EOMI. Oropharynx clear. CV: Regular rate and rhythm. No murmurs, gallops, or rubs. LUNGS: Diffuse wheezing throughout. Poor air movement. ABDOMEN: Soft, nontender, nondistended. Positive bowel sounds. : Right suprapubic tenderness. MUSCULOSKELETAL: 5/5 upper and lower extremity strength. SKIN: Warm, dry. No edema. NEURO: 2 through 12 intact. PSYCH: Alert and oriented x3. LABS: WBC 22, hemoglobin is 11, hematocrit 13, platelets are 291. D-dimer is 0.3. Sodium 136, potassium 4.2, chloride 101, carbon dioxide 25, BUN is 28, creatinine is 1.0, glucose 107. LFTs within normal. Total protein is 6.2, albumin is 4. UA is pending. Chest x-ray, personally reviewed by me: Mild perihilar bronchitis, no focal pneumonia or edema. EKG, personally reviewed by me: Sinus tachycardia. No ST elevation or depression. Abdominal CT: Nonobstructive left kidney stones. No evidence of appendicitis or diverticulitis. Status post cholecystectomy. ASSESSMENT/PLAN: 1. Chronic obstructive pulmonary disease exacerbation: I suspect this is secondary to medication noncompliance or running out of her DuoNebs. States compliant with all of her inhalers. Has been on pred taper; down to 20mg today. D-dimer, EKG, and troponin negative. Check a viral PCR, given constitutional symptoms of nausea, fatigue. Treat DuoNebs and will keep Prednisone at 40mg. Dosed Solu-Medrol in the ER. 2. Bipolar disease: home medications. 3. Chronic hypoxemic respiratory failure: due to COPD/asthma, SHARON not on CPAP. Query if the patient compliant with her oxygen since noncompliant in the past. 4. Abdominal pain: has an elevated white count, but afebrile. CT of abdomen was negative. 5. Leukocytosis: likely due to steroids. Check UA with increased frequency, viral PCR pending. 6. Diet: Regular. 7. Deep vein thrombosis prophylaxis, Lovenox. DISPOSITION: Patient warrants observation admission given COPD exacerbation, warranting DuoNeb, awaiting respiratory panel. /[id number]/MODL MTDD
[2016-09-22] MEDS ORDERED: MAG HYDROX/AL HYDROX/SIMETH 30 ML UDCUP PO ONE (17:01)
[2016-09-22] MEDS ORDERED: HYOSCYAMINE SULFATE 0.125 MG TAB PO ONE (17:01)
[2016-09-22] MEDS ORDERED: LIDOCAINE 2% VISCOUS 15 ML UDCUP PO ONE (17:50)
[2016-09-22] MEDS ORDERED: CALCIUM CARBONATE 500 MG CHEWABLE TAB PO PRN (17:51)
[2016-09-22] MEDS: KETOROLAC 15 MG/1 ML SDV IVP SCH ×3 (17:56→22:54)
[2016-09-22] MEDS: PROMETHAZINE HCL 25 MG/ML INJ IVP PRN (21:52)
[2016-09-22] MEDS ORDERED: QUEtiapine FUMARATE 100 MG TAB PO SCH (22:43)
[2016-09-22] MEDS: LORazepam 1 MG TAB PO PRN (22:54)
[2016-09-23] MEDS: IPRATROPIUM/ALBUTEROL 3 ML DEYVIAL IH PRN ×2 (00:42→16:09)
[2016-09-23] MEDS: KETOROLAC 15 MG/1 ML SDV IVP SCH ×2 (04:57→12:25)
[2016-09-23 05:36] LABS: HEMATOCRIT 33.9 % (38.0-47.0); HEMOGLOBIN 11.1 g/dL (12.6-16.3); MEAN CELL HEMOGLOBIN 31.1 pg (27.9-34.1); MEAN CELL HEMOGLOBIN CONCENTR. 32.7 g/dL (32.4-36.7); RED BLOOD CELL COUNT 3.57 10^6/uL (4.18-5.33); RED CELL DISTRIBUTION WIDTH 13.5 % (11.5-15.2)
[2016-09-23] MEDS: PROMETHAZINE HCL 25 MG/ML INJ IVP PRN ×2 (08:22→16:12)
[2016-09-23] MEDS ORDERED: ENOXAPARIN 40 MG/0.4 ML SYR SC SCH (09:00)
[2016-09-23] MEDS ORDERED: predniSONE 20 MG TAB PO SCH (09:00)
[2016-09-23 09:28] LABS: COLOR YELLOW; LEUKOCYTE ESTERASE,URINE NEGATIVE (NEGATIVE); NITRITE,URINE NEGATIVE (NEGATIVE)
[2016-09-23 09:41] LABS: BACTERIA 3+ /hpf (NONE SEEN); MUCUS 2+ /lpf (NONE-1+)
[2016-09-23 11:29] VITALS: BP 130/85; PULSE 97; RESP 18; TEMP 98.1; O2SAT 96
[2016-09-23] MEDS: LORazepam 1 MG TAB PO PRN (14:38)
--- NOTE | 2016-09-23 14:43 | GDS ---
[f rep st] DISCHARGE SUMMARY DISCHARGE DIAGNOSES: 1. Chronic obstructive pulmonary disease exacerbation versus anxiety. 2. Chronic hypoxic respiratory failure. 3. Chronic leukocytosis. HISTORY: This is a 60-year-old female, who has been admitted multiple times for COPD exacerbations. Unclear what is going on in her social situation, but she does live in a safe house and has had pr oblems there. She presented with shortness of breath. HOSPITAL COURSE: Patient was admitted and placed on a little bit higher dose of steroids than her p revious taper. She had a CT scan, which was negative for any abnormalities. The following day she is feeling better and wants to go home. She did run out of her DuoNeb a few weeks ago, and we will give her another prescription and get it filled at the pharmacy at the hospital. DISPOSITION: Home. DISCHARGE MEDICATIONS: She will continue all of her previous medications. TIME SPENT: Greater than 30 minutes was spent on discharge. /[id number]/MODL
== END 2016-09-23 17:05 | disposition home or self-care (01) ==
LOC: EDUNIT# → EDBD → EEVIPCON 14:46 → F3E 16:11
PROVIDERS: ADMIT Internal Medicine; ATTEND Internal Medicine
DX: J44.1 Chronic obstructive pulmonary disease with (acute) exacerbation (principal); F41.1 Generalized anxiety disorder; J96.11 Chronic respiratory failure with hypoxia; D72.829 Elevated white blood cell count, unspecified; I11.0 Hypertensive heart disease with heart failure; I50.9 Heart failure, unspecified; F31.9 Bipolar disorder, unspecified; M06.9 Rheumatoid arthritis, unspecified; K21.9 Gastro-esophageal reflux disease without esophagitis; I25.2 Old myocardial infarction; Z87.891 Personal history of nicotine dependence; Z79.51 Long term (current) use of inhaled steroids; Z91.128 Patient's intentional underdosing of medication regimen for other reason
CPT/HCPCS: 71020; 74177; 93005; G0378; 96374; J1200; J1650; J1885; J2550; J3010; Q9967

== ENCOUNTER 2016-09-26 23:38 | Observation (INO) | payer MEDICAID ==
[2016-09-26] MEDS ORDERED: NS 1,000 ML IV ONE (23:41)
[2016-09-26] MEDS ORDERED: ALBUTEROL 3 ML DEYVIAL IH ONE (23:42)
[2016-09-26] MEDS ORDERED: methylPREDNISolone SOD SUCC 125 MG/2 ML VIAL IVP ONE (23:43)
--- NOTE | 2016-09-26 23:44 | EDPHY ---
H & P HPI/ROS: HPI CHIEF COMPLAINT: Shortness of breath, wheezing, COPD exacerbation HISTORY OF PRESENT ILLNESS: This patient very pleasant 60-year-old female, significant past medical history for COPD and asthma, obstructive sleep apnea, morbid obesity, rheumatoid arthritis, with recent multiple hospitalizations for COPD exacerbation and anxiety, she presents emergency room by EMS in respiratory distress with COPD exacerbation. Patient is living at the [facility] custodial. She states she started getting progressively worsening shortness of breath this evening. Call 911. She does have increased cough with sputum production. No fever. Upon arrival EMS evaluated her she was tachypneic in the 40s. Audible wheezing. 1 word dyspnea, respiratory distress. Room air saturation was 89%. Upon arrival here in emergency room, 1 word dyspnea, respiratory distress. Audible wheezing. Patient tells me she does not smoke she does wear 3 L nasal cannula around the clock, never been intubated but has been on BiPAP CPAP. Past Medical History: COPD, acute hypoxic respiratory failure, chronic leukocytosis, obstructive sleep apnea, noncompliant with medication, rheumatoid arthritis, bipolar disorder, asthma, hypertension Past Surgical History: No recent surgery Social History: Denies daily use of drugs alcohol tobacco products, lives at a custodial Family History: Noncontributory ROS REVIEW OF SYSTEMS: A comprehensive 10 point review of systems is otherwise negative aside from elements mentioned in the history of present illness. Exam Constitutional respiratory distress triage nursing summary reviewed, vital signs reviewed, awake/alert. Eyes normal conjunctivae and sclera, EOMI, PERRLA. HENT normal inspection, atraumatic, moist mucus membranes, no epistaxis, neck supple/ no meningismus, no raccoon eyes. Respiratory respiratory distress, tachypnea, audible wheezing, decreased air movement bilaterally, with wheezing throughout lung villan[place]va. Cardiovascular rate normal, regular rhythm, no murmur, no edema, distal pulses normal. Gastrointestinal soft, non-tender, no rebound, no guarding, normal bowel sounds, no distension, no pulsatile mass. Genitourinary no CVA tenderness. Musculoskeletal no midline vertebral tenderness, full range of motion, no calf swelling, no tenderness of extremities, no meningismus, good pulses, neurovascularly intact. Skin pink, warm, & dry, no rash, skin atraumatic. Neurologic awake, alert and oriented x 3, AAOx3, moves all 4 extremities equally, motor intact, sensory intact, CN II-XII intact, normal cerebellar, normal vision, normal speech. Psychiatric normal mood/affect. Heme/Lymph/Immune no lymphadenopathy. Differential Diagnosis: Includes but is not limited to in a particular order, COPD exacerbation, pneumonia, asthma, anxiety, electrolyte disturbance, acute coronary syndrome Medical Decision Making: Plan for this patient placed on full face BiPAP, ABG, full crown ironer, EKG, Solu-Medrol, IV Levaquin, IV fluid bolus chest x-ray blood work. Most likely admission. Re-evaluation: EKG interpretation by me on record in [employer] system. Impression and time of EKG 2312, sinus tachycardia rate of 104. Otherwise unremarkable no acute ischemic changes specifically no ST elevation ST depression T-wave abnormalities. 1238AM: Re-evaluation this time, patient on BiPAP good air movement. Wheezing improving. Respiratory distress improving. Chest x-ray reviewed shows no acute pneumonia. COPD appearing patient. Critical Care: Total Critical Care Time Spent Managing this Patient: 65 Minutes. This time was spent Exclusively with this patient. This Care was exclusive of procedures. The Organ System/life at risk was respiratory This Patient was in Critical Condition because COPD exacerbation, Anxiety Source: Patient, EMS - Medical/Surgical History Hx Asthma: Yes Hx Chronic Respiratory Disease: Yes Hx Diabetes: No Hx Cardiac Disease: Yes Hx Renal Disease: No Hx Cirrhosis: No Hx Alcoholism: No Hx HIV/AIDS: No Hx Splenectomy or Spleen Trauma: No Other PMH: CT, CAD, COPD, asthma, home O2 (apria), GERD, RA, SHARON, hiatal hernia , crohns, neuropathy, hysterectomy, choly, t&a, bipolar - Social History Smoking Status: Former smoker Constitutional: Initial Vital Signs O2 Sat (%) 98 09/26/16 23:41 O2 Delivery Mode Bi-Pap Allergies/Adverse Reactions: benztropine [From Cogentin] Allergy (Verified 09/22/16 17:49) Other-Enter Comments codeine Allergy (Verified 09/12/16 00:11) iodine Allergy (Verified 09/12/16 00:11) morphine Allergy (Verified 09/12/16 00:11) Penicillins Allergy (Verified 09/12/16 00:11) Sulfa (Sulfonamide Antibiotics) Allergy (Verified 09/12/16 00:11) Home Medications: Medication Instructions Recorded Atorvastatin Calcium [Lipitor 20 20 mg PO DAILY 09/03/16 mg (*)] Budesonide/Formoterol 160/4.5 1 puffs IH BID 09/03/16 [Symbicort 160-4.5 Mcg Inh (*)] DULoxetine [Cymbalta 30 MG (*)] 90 mg PO HS 09/03/16 Gabapentin [Neurontin 300 MG (*)] 1,200 mg PO TID 09/04/16 Herbals/Supplements -Info Only 1 ea PO DAILY 09/04/16 QUEtiapine FUMARATE [Seroquel 100 100 mg PO HS #30 tab 09/11/16 mg (*)] QUEtiapine FUMARATE [Seroquel 25 25 mg PO Q6 PRN #30 tab 09/11/16 mg (*)] traZODone [traZODONE 100MG (*)] 100 mg PO HS 09/12/16 LORazepam [Ativan (*)] 1 mg PO BID PRN #90 tab 09/13/16 Promethazine HCl [Phenergan 12.5mg 12.5 mg RI Q6 PRN #30 suppr 09/13/16 supp (*)] Tiotropium Inhaler [Spiriva 18 mcg IH DAILY 09/16/16 Handihaler] Ipratropium/Albuterol [Duoneb (*)] 3 ml IH Q6 PRN #60 deyvial 09/23/16 Albuterol [Proventil Inhaler HFA 1 - 2 puffs IH DAILY PRN 09/27/16 (*)] Metoprolol Succinate Xr [Toprol Xl 25 mg PO DAILY 09/27/16 25 mg (*)] predniSONE 20 mg PO DAILY 09/27/16 Medical Decision Making - Data Points Laboratory Results: Laboratory Results 09/26/16 23:50 09/26/16 23:50 Medications Given: Discontinued Medications Albuterol (Proventil Neb) 10 ml IH CONT ONE Stop: 09/26/16 23:43 Last Admin: 09/27/16 00:26 Dose: 10 ml Albuterol/Ipratropium (Duoneb) 3 ml IH QID BARBARA Stop: 03/26/17 05:59 Last Admin: 09/27/16 15:55 Dose: 3 ml Enoxaparin Sodium (Lovenox) 40 mg SC DAILY [facility] Stop: 03/26/17 08:59 Last Admin: 09/27/16 10:37 Dose: 40 mg Sodium Chloride (Ns) 1,000 mls @ 0 mls/hr IV ONCE ONE; Wide Open PRN Reason: Protocol Stop: 09/26/16 23:42 Last Admin: 09/26/16 23:41 Dose: 1,000 mls Levofloxacin/Dextrose (Levaquin 750 Mg (Premix)) 150 mls @ 100 mls/hr IV ONCE ONE PRN Reason: Protocol Stop: 09/27/16 01:12 Last Admin: 09/27/16 00:26 Dose: 150 mls Methylprednisolone Sodium Succinate (Solu-Medrol) 125 mg IVP EDNOW ONE Stop: 09/26/16 23:44 Last Admin: 09/26/16 23:43 Dose: 125 mg Prednisone (Prednisone) 40 mg PO DAILY BARBARA Stop: 03/26/17 08:59 Last Admin: 09/27/16 10:36 Dose: 20 mg Departure - Departure Disposition: [facility] Clinical Impression: COPD exacerbation Condition: Serious
[2016-09-26] MEDS ORDERED: levOFLOXACIN 750 MG/DEXTROSE/150 ML BAG IV ONE (23:48)
--- NOTE | 2016-09-26 23:59 | CPEKG ---
Heart Rate: 104 RR Interval: 577 P-R Interval: 136 QRSD Interval: 82 QT Interval: 336 QTC Interval: 442 P Gazelle: 80 QRS Gazelle: 54 T Wave Gazelle: 72 EKG Severity - OTHERWISE NORMAL ECG - EKG Impression: SINUS TACHYCARDIA Electronically Signed By: Jose Pascual 27-Sep-2016 05:48:58
[2016-09-27 00:03] LABS: ADD DIFF? YES; ADD MORPH? NO; ADD SCAN? NO; ATYPICAL LYMPHOCYTE FLAG 0 (0-99); FRAGMENT RBC FLAG 0 (0-99); HEMATOCRIT 33.9 % (38.0-47.0); HEMOGLOBIN 10.8 g/dL (12.6-16.3); LEFT SHIFT FLG 20 (0-99); LIPEMIA HEMOLYSIS FLAG 80 (0-99); MEAN CELL HEMOGLOBIN 30.9 pg (27.9-34.1); MEAN CELL HEMOGLOBIN CONCENTR. 31.9 g/dL (32.4-36.7); MEAN CELL VOLUME 97.1 fL (81.5-99.8); MEAN PLATELET VOLUME 9.2 fL (8.7-11.7); PLATELET CLUMPS FLAG 0 (0-99); PLATELET COUNT 270 10^3/uL (150-400); RED BLOOD CELL COUNT 3.49 10^6/uL (4.18-5.33); RED CELL DISTRIBUTION WIDTH 13.3 % (11.5-15.2)
[2016-09-27 00:12] LABS: APTT 26.1 SEC (23.0-38.0); INR 0.94 (0.83-1.16); PROTIME(PATIENT) 12.5 SEC (12.0-15.0)
[2016-09-27 00:12] LABS: BASE EXCESS -2.3 mEq/L (-2.5-2.5); BICARBONATE 23 mEq/L (22-26); MEASURED OXYGEN SATURATION 100 % (92-95); PCO2 41 mmHg (34-38); PO2 268 mmHg (65-75); TCO2 24 mEq/L (23-27)
[2016-09-27 00:14] LABS: BIPAP YES; O2 CONCENTRATIION 60 % (0-100); P/F RATIO 447 RATIO
[2016-09-27 00:28] LABS: ALANINE AMINOTRANSFERASE 47 IU/L (9-52); ALBUMIN 3.7 g/dL (3.5-5.0); ALKALINE PHOSPHATASE 53 IU/L (38-126); ANION GAP 9 mEq/L (8-16); ASPARTATE AMINOTRANSFERASE 35 IU/L (14-46); BILIRUBIN,TOTAL 0.6 mg/dL (0.1-1.4); BILIRUBIN-CONJUGATED 0.4 mg/dL (0.0-0.5); BILIRUBIN-UNCONJUGATED 0.2 mg/dL (0.0-1.1); CALCIUM 9.2 mg/dL (8.5-10.4); CARBON DIOXIDE 23 mEq/l (22-31); CHLORIDE 106 mEq/L (97-110); CREATININE 1.1 mg/dL (0.6-1.0); GLOMERULAR FILTRATION RATE 51; GLUCOSE 120 mg/dL (70-100); MAGNESIUM 1.8 mg/dL (1.6-2.3); POTASSIUM 4.1 mEq/L (3.5-5.2); SODIUM 138 mEq/L (134-144); TOTAL PROTEIN 6.1 g/dL (6.3-8.2)
[2016-09-27 00:37] LABS: TROPONIN I < 0.012 ng/mL (0-0.034)
[2016-09-27 00:52] LABS: CK-MB INTERPRETATION NEGATIVE (NEGATIVE)
[2016-09-27 00:59] LABS: PLATELET ESTIMATE ADEQUATE (ADEQ)
[2016-09-27] MEDS ORDERED: ONDANSETRON 4 MG/2 ML VIAL IVP PRN (02:10)
[2016-09-27] MEDS ORDERED: ACETAMINOPHEN 325 MG TAB PO PRN (02:10)
[2016-09-27] MEDS ORDERED: ALBUTEROL 3 ML DEYVIAL IH PRN (02:10)
[2016-09-27] MEDS ORDERED: ONDANSETRON DISINTEGRATING 4 MG TAB PO PRN (02:10)
[2016-09-27 02:58] LABS: BASE EXCESS -3.3 mEq/L (-2.5-2.5); BICARBONATE 22 mEq/L (22-26); MEASURED OXYGEN SATURATION 98 % (92-95); PCO2 44 mmHg (34-38); PO2 120 mmHg (65-75); TCO2 24 mEq/L (23-27)
--- NOTE | 2016-09-27 05:22 | PDGENHP ---
History and Physical - Chief Complaint shortness of breath - History of Present Illness Patient is a 60 year old female with COPD, chronic respiratory failure, HTN, RA , CAD, dCHF, bipolar disorder with 6 admissions to [facility] in the past 30 days for similar complaints presents again to the ED with complaint of acute onset shortness of breath and wheezing. Patient states she felt to be in her usual state of health earlier in the day, was out in the sunlight/heat all day when she suddenly felt dyspneic, wheezing. She attempted her home nebs without improvement, so she called the ambulance. She was most recently discharged on with a 13-day steroid taper and patient reports compliance with this. On arrival to the ED, patient was afebrile, hemodynamically stable, apparently in moderate respiratory distress with wheezing, accessory muscle use. She was placed on bipap, given IV steroids and continuous nebs with improvement in respiratory status. Labs revealed her chronic leukocytosis, normal BMP, negative lactic acid and negative troponin. CXR was negative for obvious acute infiltrate. She was then admitted for further management. History Information - Allergies/Home Medication List Allergies/Adverse Reactions: benztropine [From Cogentin] Allergy (Verified 09/22/16 17:49) Other-Enter Comments codeine Allergy (Verified 09/12/16 00:11) iodine Allergy (Verified 09/12/16 00:11) morphine Allergy (Verified 09/12/16 00:11) Penicillins Allergy (Verified 09/12/16 00:11) Sulfa (Sulfonamide Antibiotics) Allergy (Verified 09/12/16 00:11) Home Medications: Aspirin EC [Aspirin EC 325 mg (*)] 325 mg PO DAILY 09/03/16 [Last Taken 09/15/16 ] Atorvastatin Calcium [Lipitor 20 mg (*)] 20 mg PO DAILY 09/03/16 [Last Taken 11/25] Budesonide/Formoterol 160/4.5 [Symbicort 160-4.5 Mcg Inh (*)] 1 puffs IH BID [Last Taken 09/15/16] DULoxetine [Cymbalta 30 MG (*)] 90 mg PO HS 09/03/16 [Last Taken 09/14/16] Metoprolol Succinate 25 mg PO DAILY 09/03/16 [Last Taken 09/15/16] Gabapentin [Neurontin 300 MG (*)] 1,200 mg PO TID 09/04/16 [Last Taken 09/15/16] Herbals/Supplements -Info Only 1 ea PO DAILY 09/04/16 [Last Taken Unknown] traZODone [traZODONE 100MG (*)] 100 mg PO HS 09/12/16 [Last Taken 09/15/16] Tiotropium Inhaler [Spiriva Handihaler] 18 mcg IH DAILY 09/16/16 [Last Taken 10/25] I have personally reviewed and updated: family history, medical history, social history, surgical history - Past Medical History COPD (With chronic hypoxic respiratory failure, recommend that she be on 3 L nasal cannula at all times) Additional medical history: Hypertension. COPD/Asthma. Rheumatoid arthritis. SHARON on cpap. GERD. CAD, no PCI. dCHF. Bipolar disorder. anxiety disorder - Surgical History Additional surgical history: hysterectomy. cholecystectomy. tonsillectomy - Family History Positive for: CAD - Social History Smoking Status: Former smoker Alcohol Use: None Drug Use: None Additional social history: Patient recently moved to [place] from the [place]; currently resides in [facility]. Review of Systems ROS: 10pt was reviewed & negative except for what was stated in HPI & below Physical Exam Temp Pulse Resp BP Pulse Ox 36.7 C 88 18 125/64 H 96 09/27/16 03:54 09/27/16 03:54 09/27/16 03:54 09/27/16 03:54 09/27/16 03:54 O2 (L/minute) 5 FIO2 (%) 60 Constitutional: no apparent distress, appears nourished, not in pain, obese Eyes: PERRL, anicteric sclera, EOMI Ears, Nose, Mouth, Throat: moist mucous membranes, hearing normal, ears appear normal, no oral mucosal ulcers Cardiovascular: regular rate and rhythym, no murmur, rub, or gallop, pulses symmetric bilaterally, No JVD, No edema Peripheral Pulses: 2+: dorsalis-pedis (R), dorsalis-pedis (L) Respiratory: no respiratory distress, no rales or rhonchi, expiratory wheeze ( faint scattered/rare exp wheezing) Gastrointestinal: normoactive bowel sounds, soft, non-tender abdomen, no palpable masses Genitourinary: no bladder fullness, no bladder tenderness Skin: warm, normal color, no rashes or abrasions, no fluctuance, no induration, No mottled Musculoskeletal: full muscle strength, no muscle tenderness, normal joint ROM, no joint effusions Neurologic: AAOx3, sensation intact bilaterally, CN II-XII Intact, No weakness, No numbness, No facial droop Psychiatric: interacting appropriately, not anxious, not encephalopathic, thought process linear Lab Data & Imaging Review 09/27/16 05:03 09/27/16 05:03 WBC 18.12 10^3/uL (3.80-9.50) H 09/26/16 23:50 RBC 3.49 10^6/uL (4.18-5.33) L 09/26/16 23:50 Hgb 10.8 g/dL (12.6-16.3) L 09/26/16 23:50 Hct 33.9 % (38.0-47.0) L 09/26/16 23:50 MCV 97.1 fL (81.5-99.8) 09/26/16 23:50 MCH 30.9 pg (27.9-34.1) 09/26/16 23:50 MCHC 31.9 g/dL (32.4-36.7) L 09/26/16 23:50 RDW 13.3 % (11.5-15.2) 09/26/16 23:50 Plt Count 270 10^3/uL (150-400) 09/26/16 23:50 MPV 9.2 fL (8.7-11.7) 09/26/16 23:50 Neut % (Auto) Not Reported 09/26/16 23:50 Lymph % (Auto) Not Reported 09/26/16 23:50 Hutchinson % (Auto) Not Reported 09/26/16 23:50 Eos % (Auto) Not Reported 09/26/16 23:50 Baso % (Auto) Not Reported 09/26/16 23:50 Nucleat RBC Rel Count 0.0 % (0.0-0.2) 09/26/16 23:50 Absolute Neuts (auto) Not Reported 09/26/16 23:50 Absolute Lymphs (auto) Not Reported 09/26/16 23:50 Absolute Monos (auto) Not Reported 09/26/16 23:50 Absolute Eos (auto) Not Reported 09/26/16 23:50 Absolute Basos (auto) Not Reported 09/26/16 23:50 Absolute Nucleated RBC 0.00 10^3/uL (0-0.01) 09/26/16 23:50 Immature Gran % Not Reported 09/26/16 23:50 Seg Neutrophils % 69 % 09/26/16 23:50 Band Neutrophils % 11 % 09/26/16 23:50 Lymphocytes % 12 % 09/26/16 23:50 Monocytes % 7 % 09/26/16 23:50 Eosinophils % 1 % 09/26/16 23:50 Immature Gran # Not Reported 09/26/16 23:50 Absolute Seg Neuts 12.50 10^/uL (1.70-6.50) H 09/26/16 23:50 Absolute Band Neuts 1.99 10^3/uL (0.00-0.70) H 09/26/16 23:50 Absolute Lymphocytes 2.17 10^3/uL (1.00-3.00) 09/26/16 23:50 Absolute Monocytes 1.27 10^3/uL (0.30-0.80) H 09/26/16 23:50 Absolute Eosinophils 0.18 10^3/uL (0.03-0.40) 09/26/16 23:50 Platelet Estimate ADEQUATE (ADEQ) 09/26/16 23:50 PT 12.5 SEC (12.0-15.0) 09/26/16 23:50 INR 0.94 (0.83-1.16) 09/26/16 23:50 APTT 26.1 SEC (23.0-38.0) 09/26/16 23:50 Puncture Site NONE GIVEN 09/27/16 02:55 Patient Temperature 37.0 DEGREES 09/27/16 02:55 pCO2 44 mmHg (34-38) H 09/27/16 02:55 pO2 120 mmHg (65-75) H D 09/27/16 02:55 Total CO2 24 mEq/L (23-27) 09/27/16 02:55 ABG pH 7.32 (7.35-7.45) L 09/27/16 02:55 ABG PO2/FiO2 Ratio 447 RATIO 09/27/16 00:10 ABG HCO3 22 mEq/L (22-26) 09/27/16 02:55 ABG O2 Saturation 98 % (92-95) H 09/27/16 02:55 ABG Base Excess -3.3 mEq/L (-2.5-2.5) L 09/27/16 02:55 VBG Lactic Acid 1.8 mmol/L (0.7-2.1) 09/26/16 23:50 O2 Concentration % 60 % (0-100) 09/27/16 00:10 Mode BiPAP YES 09/27/16 00:10 Sodium 138 mEq/L (134-144) 09/26/16 23:50 Potassium 4.1 mEq/L (3.5-5.2) 09/26/16 23:50 Chloride 106 mEq/L (97-110) 09/26/16 23:50 Carbon Dioxide 23 mEq/l (22-31) 09/26/16 23:50 Anion Gap 9 mEq/L (8-16) 09/26/16 23:50 BUN 17 mg/dL (7-23) 09/26/16 23:50 Creatinine 1.1 mg/dL (0.6-1.0) H 09/26/16 23:50 Estimated GFR 51 09/26/16 23:50 Glucose 120 mg/dL (70-100) H 09/26/16 23:50 Calcium 9.2 mg/dL (8.5-10.4) 09/26/16 23:50 Magnesium 1.8 mg/dL (1.6-2.3) 09/26/16 23:50 Total Bilirubin 0.6 mg/dL (0.1-1.4) 09/26/16 23:50 Conjugated Bilirubin 0.4 mg/dL (0.0-0.5) 09/26/16 23:50 Unconjugated Bilirubin 0.2 mg/dL (0.0-1.1) 09/26/16 23:50 AST 35 IU/L (14-46) 09/26/16 23:50 ALT 47 IU/L (9-52) 09/26/16 23:50 Alkaline Phosphatase 53 IU/L (38-126) 09/26/16 23:50 Creatine Kinase 431 IU/L (0-156) H 09/26/16 23:50 CK-MB (CK-2) Fraction 12.10 ng/mL (0-3.19) H 09/26/16 23:50 CK-MB (CK-2) % 2.8 % (0.0-4.0) 09/26/16 23:50 Creatine Kinase Interp NEGATIVE (NEGATIVE) 09/26/16 23:50 Troponin I < 0.012 ng/mL (0-0.034) 09/26/16 23:50 NT-Pro-B Natriuret Pep 138 pg/mL (0-125) H 09/26/16 23:50 Total Protein 6.1 g/dL (6.3-8.2) L 09/26/16 23:50 Albumin 3.7 g/dL (3.5-5.0) 09/26/16 23:50 Lipase 46.0 IU/L (23-300) 09/26/16 23:50 Visualized and Interpreted Chest x-ray results: Yes Chest X-Ray results: no infiltrate, normal Visualized and Interpreted EKG results: Yes EKG additional interpertation: sinus tachycardia without st/t wave changes Assessment & Plan Assessment: Patient is a 60 year old female with bipolar disorder, anxiety, diastolic CHF, chronic leukocytosis, COPD/Asthma, chronic respiratory failure, multiple admission for acute onset wheezing and respiratory distress who presents again with similar symptoms, concerning for acute on chronic COPD exacerbation. Plan: # acute on chronic hypoxic respiratory failure On initial presentation, patient was reportedly in moderate respiratory distress that was stabilized with BIPAP, IV steroids and continuous nebs. Patient admitted 6 times with the same symptoms/presentation over past 1 month. Reports compliance with outpatient steroid taper. On my assessment, patient's respiratory status is stable, at her baseline. Given the rapidity of her symptom resolution, I believe patient's underlying psychiatric anxiety is a large component of her re-presentations. She is now saturating well on her baseline 2L NC. Will continue previous PO steroid taper from 09/23 discharge, continue duonebs q6h and prn. No indication for continued antibiotics. # chronic leukocytosis Although patient meets SIRS criteria on presentation today, do not suspect sepsis at this time, as cxr is clear of infiltrate. Leukocytosis is likely related to chronic steroid use. Will continue to trend CBC, monitor for localizing signs of infection. # chronic hypertension, diastolic CHF Stable, euvolemic cont home meds. # Bipolar disorder Anxious, but mood stable. cont home med. # dispo: admit to observation status # gen: cardiac diet DVT ppx: lovenox Full code
[2016-09-27 05:27] LABS: % IMMATURE GRANULYOCYTES 1.8 % (0.0-1.1); ADD DIFF? NO; ADD MORPH? NO; ADD SCAN? NO; ATYPICAL LYMPHOCYTE FLAG 0 (0-99); FRAGMENT RBC FLAG 0 (0-99); HEMATOCRIT 30.5 % (38.0-47.0); HEMOGLOBIN 9.9 g/dL (12.6-16.3); LEFT SHIFT FLG 10 (0-99); LIPEMIA HEMOLYSIS FLAG 80 (0-99); MEAN CELL HEMOGLOBIN 31.7 pg (27.9-34.1); MEAN CELL HEMOGLOBIN CONCENTR. 32.5 g/dL (32.4-36.7); MEAN CELL VOLUME 97.8 fL (81.5-99.8); MEAN PLATELET VOLUME 9.2 fL (8.7-11.7); PLATELET CLUMPS FLAG 0 (0-99); PLATELET COUNT 220 10^3/uL (150-400); RED BLOOD CELL COUNT 3.12 10^6/uL (4.18-5.33); RED CELL DISTRIBUTION WIDTH 13.3 % (11.5-15.2)
[2016-09-27 05:38] LABS: ANION GAP 7 mEq/L (8-16); CALCIUM 8.7 mg/dL (8.5-10.4); CARBON DIOXIDE 23 mEq/l (22-31); CHLORIDE 106 mEq/L (97-110); CREATININE 0.9 mg/dL (0.6-1.0); GLOMERULAR FILTRATION RATE > 60; GLUCOSE 161 mg/dL (70-100); POTASSIUM 4.5 mEq/L (3.5-5.2); SODIUM 136 mEq/L (134-144)
[2016-09-27 05:47] LABS: TROPONIN I < 0.012 ng/mL (0-0.034)
[2016-09-27] MEDS: IPRATROPIUM/ALBUTEROL 3 ML DEYVIAL IH SCH ×4 (06:07→15:55)
[2016-09-27 07:34] VITALS: BP 134/80; PULSE 87; TEMP 98.3
[2016-09-27] MEDS ORDERED: ENOXAPARIN 40 MG/0.4 ML SYR SC SCH (09:00)
[2016-09-27] MEDS ORDERED: predniSONE 20 MG TAB PO SCH (09:00)
[2016-09-27 10:23] VITALS: RESP 20
[2016-09-27] MEDS ORDERED: LORazepam 1 MG TAB PO PRN (11:38)
[2016-09-27] MEDS ORDERED: QUEtiapine FUMARATE 25 MG TAB PO PRN (11:38)
[2016-09-27] MEDS ORDERED: ALBUTEROL 60 PUFFS/8 GM MDI IH PRN (11:38)
[2016-09-27] MEDS ORDERED: IPRATROPIUM/ALBUTEROL 3 ML DEYVIAL IH PRN (11:38)
--- NOTE | 2016-09-27 12:53 | GDS ---
[f rep st] DISCHARGE SUMMARY DISCHARGE DIAGNOSES: 1. Chronic obstructive pulmonary disease. 2. Anxiety. 3. Chronic hypoxemic respiratory failure. 4. Rheumatoid arthritis. 5. Obstructive sleep apnea, on CPAP. 6. Bipolar. HOSPITAL COURSE: Please see admission History and Physical by Dr. Gayle Retana. The patient p resented to the emergency department last evening. She was just discharged on the . She has be en admitted, 4 or 5 times in the last month, to the hospital, each time with a similar presentation, where she comes in with shortness of breath and wheezing pretty significantly in the emergency depa rtment, with rapid improvement her baseline oxygen requirement while here. She was discharged just on the , by Dr. Margarita Bro, with a prolonged steroid taper, with which s he has been compliant. It is noted she lives in a safe house. I have asked her on previous discharges if she felt safe ana lilia ng discharged, and she has said yes. She is discharged home today on unchanged medication regimen. /[id number]/MODL
[2016-09-27 13:35] VITALS: O2SAT 90
[2016-09-27] MEDS ORDERED: GABAPENTIN 300 MG CAP PO SCH (16:00)
--- NOTE | 2016-09-27 16:59 | PDIAF ---
- Diagnosis Diagnosis: copd Code Status: Full Code - Medication Management Discharge Medications: Medications to Continue on Transfer Atorvastatin Calcium [Lipitor 20 mg (*)] 20 mg PO DAILY 09/03/16 [Last Taken ] Budesonide/Formoterol 160/4.5 [Symbicort 160-4.5 Mcg Inh (*)] 1 puffs IH BID [Last Taken 09/26/16 09:00] DULoxetine [Cymbalta 30 MG (*)] 90 mg PO HS 09/03/16 [Last Taken 09/25/16] Gabapentin [Neurontin 300 MG (*)] 1,200 mg PO TID 09/04/16 [Last Taken 09/26/16 21:00] Herbals/Supplements -Info Only 1 ea PO DAILY 09/04/16 [Last Taken Unknown] QUEtiapine FUMARATE [Seroquel 100 mg (*)] 100 mg PO HS #30 tab 09/11/16 [Last Taken 09/26/16] QUEtiapine FUMARATE [Seroquel 25 mg (*)] 25 mg PO Q6 PRN #30 tab 09/11/16 [Last Taken 09/26/16] traZODone [traZODONE 100MG (*)] 100 mg PO HS 09/12/16 [Last Taken 09/26/16] LORazepam [Ativan (*)] 1 mg PO BID PRN #90 tab 09/13/16 [Last Taken 09/26/16 09: 00] Promethazine HCl [Phenergan 12.5mg supp (*)] 12.5 mg ID Q6 PRN #30 suppr [Last Taken 09/14/16] Tiotropium Inhaler [Spiriva Handihaler] 18 mcg IH DAILY 09/16/16 [Last Taken ] Ipratropium/Albuterol [Duoneb (*)] 3 ml IH Q6 PRN #60 deyvial 09/23/16 [Last Taken 09/26/16] Albuterol [Proventil Inhaler HFA (*)] 1 - 2 puffs IH DAILY PRN 09/27/16 [Last Taken Unknown] Metoprolol Succinate Xr [Toprol Xl 25 mg (*)] 25 mg PO DAILY 09/27/16 [Last Taken 09/26/16] predniSONE 20 mg PO DAILY 09/27/16 [Last Taken 09/26/16] Discharge Medications: Refer to the Discharge Home Medication list for PRN reason. - Orders Services needed: Home Care, Registered Nurse, Master Inseminator Home Care Face to Face: I certify that this patient was under my care and that I had the required [id number] encounter meeting the encounter requirements on the discharge day. My findings support the fact that the patient is homebound as defined in CMS Chapter 7 Medicare Benefits Manual 30.1.1, The condition of the patient is such that there exists a normal inability to leave home and consequently, leaving home would require a considerable and taxing effort. - Follow Up Care Current Providers and Referrals: NONE *PRIMARY CARE P,. [Unknown] - As per Instructions
[2016-09-27] MEDS ORDERED: BUDESONIDE/FORMOTEROL 160/4.5 60 PUFFS/MDI IH SCH (21:00)
[2016-09-27] MEDS ORDERED: QUEtiapine FUMARATE 100 MG TAB PO SCH (21:00)
[2016-09-27] MEDS ORDERED: DULoxetine 30 MG CAP PO SCH (21:00)
[2016-09-27] MEDS ORDERED: traZODone 100 MG TAB PO SCH (21:00)
[2016-09-28] MEDS ORDERED: TIOTROPIUM INHALER 18 MCG/DOSE 5 DOSE/MDI IH SCH (09:00)
[2016-09-28] MEDS ORDERED: ATORVASTATIN CALCIUM 20 MG TAB PO SCH (09:00)
[2016-09-28] MEDS ORDERED: METOPROLOL SUCCINATE XR 25 MG TAB PO SCH (09:00)
[2016-09-28] MEDS ORDERED: Herbals/Supplements -Info Only PO SCH (09:00)
== END 2016-09-27 17:22 | disposition home or self-care (01) ==
LOC: EDUNIT# → INTOOBSV 09-27 01:33 → F2W 09-27 04:00
PROVIDERS: ADMIT Internal Medicine; ATTEND Internal Medicine
DX: J44.1 Chronic obstructive pulmonary disease with (acute) exacerbation (principal); J96.20 Acute and chronic respiratory failure, unspecified whether with hypoxia or hypercapnia; I25.10 Atherosclerotic heart disease of native coronary artery without angina pectoris; I11.0 Hypertensive heart disease with heart failure; I50.30 Unspecified diastolic (congestive) heart failure; Z87.891 Personal history of nicotine dependence; F31.9 Bipolar disorder, unspecified; M06.9 Rheumatoid arthritis, unspecified; E66.01 Morbid (severe) obesity due to excess calories; Z68.30 Body mass index [BMI] 30.0-30.9, adult; G47.33 Obstructive sleep apnea (adult) (pediatric)
CPT/HCPCS: 71010; 93005; G0378; 96365; 96366; J1650; J1956

== ENCOUNTER 2016-09-28 07:58 | Emergency (ER) | payer MEDICAID ==
[2016-09-28 08:06] VITALS: O2SAT 93
[2016-09-28] MEDS ORDERED: IPRATROPIUM/ALBUTEROL 3 ML DEYVIAL ONE (08:20)
[2016-09-28] MEDS ORDERED: ONDANSETRON 4 MG/2 ML VIAL ONE (08:20)
[2016-09-28] MEDS ORDERED: IPRATROPIUM/ALBUTEROL 3 ML DEYVIAL IH ONE (08:25)
--- NOTE | 2016-09-28 08:25 | EDPHY ---
H & P Time Seen by Provider: 09/28/16 08:09 HPI/ROS: Chief complaint. Shortness of breath HPI. 6-year-old female here by EMS has been seen multiple times in the emergency department with 6 admissions in the past 30 days for shortness of breath. She was discharged from the hospital yesterday. She tells me she was feeling better. During the night she became more short of breath. She is on chronic steroids. She complains of some chest discomfort and shortness of breath specially with exertion. She claims compliance on her medications. No fever. No leg symptoms ROS Constitutional. no fever/chills, no weakness Eyes. no problems with vision ENT. no sore throat, no nasal drainage Cardiovascular. Chest pain Respiratory. Shortness of breath Abdominal. no abdominal pain, no nausea/vomiting, no diarrhea . no problems urinating MS. no calf pain/swelling, no neck/back pain, no joint pain Skin. no rash Lymph. no swollen glands Neuro. no headache, no dizziness, no difficulty walking or with speech Past Medical/Surgical History: Past medical history significant for COPD and chronic respiratory failure, hypertension, rheumatoid arthritis, coronary artery disease with [place], congestive heart failure, bipolar illness Social History: Patient is in a safe house. Nonsmoker. No alcohol Smoking Status: Former smoker Physical Exam: General Appearance: Alert well-developed female moderate distress vital signs show heart rate 125 and blood pressure 155/115. Initial pulse ox on room air 86 % saturation Eyes: Pupils equal and round no pallor or injection. ENT, Mouth: Mucous membranes are moist. Respiratory: No retractions but inspiratory expiratory rhonchi Cardiovascular: Tachycardia Gastrointestinal: Abdomen is soft and nontender, no masses, bowel sounds normal. Neurological: Awake and alert, sensory and motor exams grossly normal. Skin: Warm and dry, no rashes. Musculoskeletal: Neck is supple nontender. Extremities symmetrical, full range of motion. Psychiatric: Patient is oriented X 3, there is no agitation. Constitutional: Initial Vital Signs Temperature (C) 36.7 C 09/28/16 08:02 Heart Rate 125 H 09/28/16 08:02 Respiratory Rate 16 09/28/16 08:02 Blood Pressure 155/115 H 09/28/16 08:02 O2 Sat (%) 86 L 09/28/16 08:02 O2 Delivery Mode Room Air O2 (L/minute) 4 Allergies/Adverse Reactions: benztropine [From Cogentin] Allergy (Verified 09/22/16 17:49) Other-Enter Comments codeine Allergy (Verified 09/12/16 00:11) iodine Allergy (Verified 09/12/16 00:11) morphine Allergy (Verified 09/12/16 00:11) Penicillins Allergy (Verified 09/12/16 00:11) Sulfa (Sulfonamide Antibiotics) Allergy (Verified 09/12/16 00:11) Home Medications: Medication Instructions Recorded Atorvastatin Calcium [Lipitor 20 20 mg PO DAILY 09/03/16 mg (*)] Budesonide/Formoterol 160/4.5 1 puffs IH BID 09/03/16 [Symbicort 160-4.5 Mcg Inh (*)] DULoxetine [Cymbalta 30 MG (*)] 90 mg PO HS 09/03/16 Gabapentin [Neurontin 300 MG (*)] 1,200 mg PO TID 09/04/16 Herbals/Supplements -Info Only 1 ea PO DAILY 09/04/16 QUEtiapine FUMARATE [Seroquel 100 100 mg PO HS #30 tab 09/11/16 mg (*)] QUEtiapine FUMARATE [Seroquel 25 25 mg PO Q6 PRN #30 tab 09/11/16 mg (*)] traZODone [traZODONE 100MG (*)] 100 mg PO HS 09/12/16 LORazepam [Ativan (*)] 1 mg PO BID PRN #90 tab 09/13/16 Promethazine HCl [Phenergan 12.5mg 12.5 mg [place] Q6 PRN #30 suppr 09/13/16 supp (*)] Tiotropium Inhaler [Spiriva 18 mcg IH DAILY 09/16/16 Handihaler] Ipratropium/Albuterol [Duoneb (*)] 3 ml IH Q6 PRN #60 deyvial 09/23/16 Albuterol [Proventil Inhaler HFA 1 - 2 puffs IH DAILY PRN 09/27/16 (*)] Metoprolol Succinate Xr [Toprol Xl 25 mg PO DAILY 09/27/16 25 mg (*)] predniSONE 20 mg PO DAILY 09/27/16 Medical Decision Making - Diagnostics EKG Interpretation: EKG interpreted by me sinus tachycardia with normal interval and axis. QRS is normal there is no significant ST elevation or depression. No arrhythmia. The heart rate is 114 Imaging Results: Imaging Impressions Chest X-Ray 09/28/16 08:25 Impression: Radiographically similar to previous studies. One-view chest x-ray interpreted by me shows no evidence for pneumonia or pneumothorax Procedures: IV normal saline, oxygen, monitor DuoNeb britney ED Course/Re-evaluation: Re-evaluation 9:05 a.m.--patient is stable. She and I discussed laboratory evaluation, EKG and chest x-ray findings we discussed treatment plan including recommendation for admission. She expresses understanding I consulted and discussed case with Dr. Barrios, hospitalist, who agrees to the admission Differential Diagnosis: The patient has known asthma and COPD. I think there is a large psychiatric component to this as well. She dislikes the [facility] and her symptoms seem to exacerbate when she is discharged from the hospital. No evidence for pneumonia today - Data Points Laboratory Results: Laboratory Results 09/28/16 08:14 09/28/16 08:14 09/28/16 09/28/16 08:14 08:14 WBC 21.46 10^3/uL H 10^3/uL (3.80-9.50) RBC 3.48 10^6/uL L 10^6/uL (4.18-5.33) Hgb 10.7 g/dL L g/dL (12.6-16.3) Hct 33.7 % L % (38.0-47.0) MCV 96.8 fL fL (81.5-99.8) MCH 30.7 pg pg (27.9-34.1) MCHC 31.8 g/dL L g/dL (32.4-36.7) RDW 13.5 % % (11.5-15.2) Plt Count 269 10^3/uL 10^3/uL (150-400) MPV 9.2 fL fL (8.7-11.7) Neut % (Auto) Not Reported Lymph % (Auto) Not Reported [place] % (Auto) Not Reported Eos % (Auto) Not Reported Baso % (Auto) Not Reported Nucleat RBC Rel Count 0.0 % % (0.0-0.2) Absolute Neuts (auto) Not Reported Absolute Lymphs (auto) Not Reported Absolute Monos (auto) Not Reported Absolute Eos (auto) Not Reported Absolute Basos (auto) Not Reported Absolute Nucleated RBC 0.00 10^3/uL 10^3/uL (0-0.01) Immature Gran % Not Reported Immature Gran # Not Reported Platelet Estimate Pending Sodium 139 mEq/L mEq/L (134-144) Potassium 3.4 mEq/L L mEq/L (3.5-5.2) Chloride 104 mEq/L mEq/L (97-110) Carbon Dioxide 27 mEq/l mEq/l (22-31) Anion Gap 8 mEq/L mEq/L (8-16) BUN 17 mg/dL mg/dL (7-23) Creatinine 0.8 mg/dL mg/dL (0.6-1.0) Estimated GFR > 60 Glucose 103 mg/dL H mg/dL (70-100) Calcium 9.0 mg/dL mg/dL (8.5-10.4) Troponin I < 0.012 ng/mL ng/mL (0-0.034) NT-Pro-B Natriuret Pep 376 pg/mL H pg/mL (0-125) Medications Given: Discontinued Medications Albuterol/Ipratropium (Duoneb) 3 ml IH EDNOW ONE Stop: 09/28/16 08:26 Last Admin: 09/28/16 08:38 Dose: 3 ml Ondansetron HCl (Zofran) 4 mg IVP EDNOW ONE Stop: 09/28/16 08:39 Last Admin: 09/28/16 08:39 Dose: 4 mg Departure - Departure Disposition: [facility] Clinical Impression: Exacerbation of asthma Condition: Fair Referrals: NEHEMIAH LOPEZ [Other] - As per Instructions
[2016-09-28 08:31] LABS: ADD DIFF? YES; ADD MORPH? NO; ADD SCAN? NO; ATYPICAL LYMPHOCYTE FLAG 0 (0-99); FRAGMENT RBC FLAG 0 (0-99); HEMATOCRIT 33.7 % (38.0-47.0); HEMOGLOBIN 10.7 g/dL (12.6-16.3); LEFT SHIFT FLG 10 (0-99); LIPEMIA HEMOLYSIS FLAG 80 (0-99); MEAN CELL HEMOGLOBIN 30.7 pg (27.9-34.1); MEAN CELL HEMOGLOBIN CONCENTR. 31.8 g/dL (32.4-36.7); MEAN CELL VOLUME 96.8 fL (81.5-99.8); MEAN PLATELET VOLUME 9.2 fL (8.7-11.7); PLATELET CLUMPS FLAG 0 (0-99); PLATELET COUNT 269 10^3/uL (150-400); RED BLOOD CELL COUNT 3.48 10^6/uL (4.18-5.33); RED CELL DISTRIBUTION WIDTH 13.5 % (11.5-15.2)
[2016-09-28] MEDS ORDERED: ONDANSETRON 4 MG/2 ML VIAL IVP ONE (08:38)
[2016-09-28 08:48] LABS: ANION GAP 8 mEq/L (8-16); CARBON DIOXIDE 27 mEq/l (22-31); CHLORIDE 104 mEq/L (97-110); CREATININE 0.8 mg/dL (0.6-1.0); GLOMERULAR FILTRATION RATE > 60; GLUCOSE 103 mg/dL (70-100); POTASSIUM 3.4 mEq/L (3.5-5.2); SODIUM 139 mEq/L (134-144)
[2016-09-28 09:00] LABS: TROPONIN I < 0.012 ng/mL (0-0.034)
--- NOTE | 2016-09-28 09:01 | CPEKG ---
Heart Rate: 114 RR Interval: 526 P-R Interval: 140 QRSD Interval: 86 QT Interval: 320 QTC Interval: 441 P [place]: 74 QRS [place]: 63 T Wave [place]: 78 EKG Severity - OTHERWISE NORMAL ECG - EKG Impression: SINUS TACHYCARDIA Electronically Signed By: Deandre Jansen 28-Sep-2016 15:50:09
[2016-09-28 09:15] LABS: MACROCYTES 1+; PLATELET ESTIMATE ADEQUATE (ADEQ)
[2016-09-28] MEDS ORDERED: ALBUTEROL 3 ML DEYVIAL IH ONE (09:38)
[2016-09-28] MEDS ORDERED: LORazepam 1 MG TAB PO ONE (09:38)
[2016-09-28] MEDS ORDERED: ALBUTEROL 3 ML DEYVIAL ONE ×2 (09:45→09:47)
[2016-09-28] MEDS ORDERED: LORazepam 1 MG TAB ONE (09:46)
[2016-09-28 09:56] VITALS: BP 144/89; PULSE 103; RESP 18; TEMP 98.2
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
== END 2016-09-28 10:28 | disposition home or self-care (01) ==
LOC: EDUNIT# → UNDOADMOB 09:16
DX: J45.901 Unspecified asthma with (acute) exacerbation (principal)
CPT/HCPCS: 96374; J2405

== ENCOUNTER 2016-09-28 18:34 | Emergency (ER) | payer MEDICAID ==
[2016-09-28 18:43] VITALS: O2SAT 93
--- NOTE | 2016-09-28 19:28 | EDPHY ---
H & P Stated Complaint: Shortness of breath. Time Seen by Provider: 09/28/16 18:39 HPI/ROS: CHIEF COMPLAINT: Recurrent dyspnea HISTORY OF PRESENT ILLNESS: The patient presents to the ED via ambulance with complaints of recurrent dyspnea. The patient has had multiple ED visits and hospitalizations for dyspnea over the past 30 days. The patient was discharge from the hospital yesterday. She return to the emergency department earlier today and was again discharged. She returns again this evening after alleged recurrent dyspnea. The patient reportedly did give herself a DuoNeb and an albuterol neb prior to arrival. The patient complains of mild nausea. The patient denies complaints of fever, productive cough or significant pain. REVIEW OF SYSTEMS: A comprehensive 10 point review of systems is otherwise negative aside from elements mentioned in the history of present illness. Source: Patient Exam Limitations: No limitations - Medical/Surgical History Hx Asthma: Yes Hx Chronic Respiratory Disease: Yes Hx Diabetes: No Hx Cardiac Disease: Yes Hx Renal Disease: No Hx Cirrhosis: No Hx Alcoholism: No Hx HIV/AIDS: No Hx Splenectomy or Spleen Trauma: No Other PMH: MD, CAD, COPD, asthma, home O2 (apria), GERD, RA, SHARON, hiatal hernia , crohns, neuropathy, hysterectomy, choly, t&a, bipolar - Social History Smoking Status: Former smoker - Physical Exam Exam: General Appearance: Alert, no distress, mildly anxious Eyes: Pupils equal and round no pallor or injection ENT, Mouth: Mucous membranes moist Respiratory: There are no retractions, lungs are clear to auscultation Cardiovascular: Regular rate and rhythm Gastrointestinal: Abdomen is soft and nontender, no masses, bowel sounds normal Neurological: A&O, normal motor function, normal sensory exam, normal cranial nerves Skin: Warm and dry, no rashes Musculoskeletal: Neck is supple nontender Extremities: symmetrical, full range of motion Constitutional: Initial Vital Signs Temperature (C) 36.7 C 09/28/16 18:41 Heart Rate 100 09/28/16 18:41 Respiratory Rate 22 H 09/28/16 18:41 Blood Pressure 109/78 09/28/16 18:41 O2 Sat (%) 93 09/28/16 18:41 O2 Delivery Mode Room Air Allergies/Adverse Reactions: benztropine [From Cogentin] Allergy (Verified 09/22/16 17:49) Other-Enter Comments codeine Allergy (Verified 09/12/16 00:11) iodine Allergy (Verified 09/12/16 00:11) morphine Allergy (Verified 09/12/16 00:11) Penicillins Allergy (Verified 09/12/16 00:11) Sulfa (Sulfonamide Antibiotics) Allergy (Verified 09/12/16 00:11) Home Medications: Medication Instructions Recorded Atorvastatin Calcium [Lipitor 20 20 mg PO DAILY 09/03/16 mg (*)] Budesonide/Formoterol 160/4.5 1 puffs IH BID 09/03/16 [Symbicort 160-4.5 Mcg Inh (*)] DULoxetine [Cymbalta 30 MG (*)] 90 mg PO HS 09/03/16 Gabapentin [Neurontin 300 MG (*)] 1,200 mg PO TID 09/04/16 Herbals/Supplements -Info Only 1 ea PO DAILY 09/04/16 QUEtiapine FUMARATE [Seroquel 100 100 mg PO HS #30 tab 09/11/16 mg (*)] QUEtiapine FUMARATE [Seroquel 25 25 mg PO Q6 PRN #30 tab 09/11/16 mg (*)] traZODone [traZODONE 100MG (*)] 100 mg PO HS 09/12/16 LORazepam [Ativan (*)] 1 mg PO BID PRN #90 tab 09/13/16 Promethazine HCl [Phenergan 12.5mg 12.5 mg [place] Q6 PRN #30 suppr 09/13/16 supp (*)] Tiotropium Inhaler [Spiriva 18 mcg IH DAILY 09/16/16 Handihaler] Ipratropium/Albuterol [Duoneb (*)] 3 ml IH Q6 PRN #60 deyvial 09/23/16 Albuterol [Proventil Inhaler HFA 1 - 2 puffs IH DAILY PRN 09/27/16 (*)] Metoprolol Succinate Xr [Toprol Xl 25 mg PO DAILY 09/27/16 25 mg (*)] predniSONE 20 mg PO DAILY 09/27/16 Medical Decision Making ED Course/Re-evaluation: I reviewed the patient's extensive past medical history. At this point time she has no wheezing after taking 2 nebulizers prior to arrival. She has no tachycardia or hypotension. At this point time I see no indication for admission. The patient has a follow- up appointment scheduled [facility]. The patient tells me she has adequate supplies of albuterol and Atrovent nebulizers. The patient will be discharged home with customary aftercare instructions. She is instructed specifically to return to the ED for severe shortness of breath not improved with her typical medications. Differential Diagnosis: Differential diagnosis considered includes asthma, bronchitis, pneumonia, COPD exacerbation Departure - Departure Disposition: Home, Routine, Self-Care Clinical Impression: Chronic obstructive pulmonary disease with acute exacerbation Condition: Good Instructions: COPD (Chronic Obstructive Pulmonary Disease) (ED) Additional Instructions: 1. Please continue to use DuoNeb and albuterol as needed. 2. Please follow up tomorrow as scheduled with [facility]. Referrals: NEHEMIAH MUSTAFA [Other] - As per Instructions
[2016-09-28 20:47] VITALS: BP 138/69; PULSE 91; RESP 20; TEMP 98.4
== END 2016-09-28 20:44 | disposition home or self-care (01) ==
LOC: EDUNIT#
DX: J44.1 Chronic obstructive pulmonary disease with (acute) exacerbation (principal); I25.2 Old myocardial infarction; I25.10 Atherosclerotic heart disease of native coronary artery without angina pectoris; Z87.891 Personal history of nicotine dependence

== ENCOUNTER 2016-09-29 06:52 | Emergency (ER) | payer MEDICAID ==
[2016-09-29] MEDS ORDERED: IPRATROPIUM/ALBUTEROL 3 ML DEYVIAL IH ONE (07:20)
--- NOTE | 2016-09-29 07:20 | EDPHY ---
H & P Time Seen by Provider: 09/29/16 07:17 HPI/ROS: Chief complaint. Shortness of breath HPI. 6-year-old female here by EMS. She has been seen multiple times in fact 8 visits this month. She was seen yesterday during the day by me and then returned last evening. Today she has some congestion that is new since yesterday. She continues to have some cough. She has slight headache. Also new today is that she has some discomfort with urination. No chest discomfort. No abdominal pain. No vomiting or diarrhea. ROS Constitutional. no fever/chills, no weakness Eyes. no problems with vision ENT. Congestion Cardiovascular. no chest pain Respiratory. Shortness of breath and cough Abdominal. no abdominal pain, no nausea/vomiting, no diarrhea . Painful urination MS. no calf pain/swelling, no neck/back pain, no joint pain Skin. no rash Lymph. no swollen glands Neuro. no headache, no dizziness, no difficulty walking or with speech Past Medical/Surgical History: Past medical history mi, coronary artery disease, COPD, asthma, home O2, GERD, rheumatoid arthritis, Crohn's disease, neuropathy, hysterectomy, cholecystectomy , bipolar illness Social History: , nonsmoker, no alcohol Smoking Status: Former smoker Physical Exam: General Appearance: Alert well-developed female mild distress vital signs show temp 37.9degrees, heart rate 100, O2 saturation 92% room air Eyes: Pupils equal and round no pallor or injection. ENT, Mouth: Mucous membranes are moist. Respiratory: No retractions. Mild end-expiratory wheezing Cardiovascular: Regular rate and rhythm. Gastrointestinal: Abdomen is soft and nontender, no masses, bowel sounds normal. Neurological: Awake and alert, sensory and motor exams grossly normal. Skin: Warm and dry, no rashes. Musculoskeletal: Neck is supple nontender. Extremities symmetrical, full range of motion. Psychiatric: Patient is oriented X 3, there is no agitation. Constitutional: Initial Vital Signs Temperature (C) 37.9 C 09/29/16 07:02 Heart Rate 100 09/29/16 07:02 Respiratory Rate 20 09/29/16 07:02 Blood Pressure 149/88 H 09/29/16 07:02 O2 Sat (%) 92 09/29/16 07:02 O2 Delivery Mode Nasal Cannula O2 (L/minute) 2 Allergies/Adverse Reactions: benztropine [From Cogentin] Allergy (Verified 09/29/16 07:02) Other-Enter Comments codeine Allergy (Verified 09/29/16 07:02) iodine Allergy (Verified 09/29/16 07:02) morphine Allergy (Verified 09/29/16 07:02) Penicillins Allergy (Verified 09/29/16 07:02) Sulfa (Sulfonamide Antibiotics) Allergy (Verified 09/29/16 07:02) Home Medications: Medication Instructions Recorded Atorvastatin Calcium [Lipitor 20 20 mg PO DAILY 09/03/16 mg (*)] Budesonide/Formoterol 160/4.5 1 puffs IH BID 09/03/16 [Symbicort 160-4.5 Mcg Inh (*)] DULoxetine [Cymbalta 30 MG (*)] 90 mg PO HS 09/03/16 Gabapentin [Neurontin 300 MG (*)] 1,200 mg PO TID 09/04/16 Herbals/Supplements -Info Only 1 ea PO DAILY 09/04/16 QUEtiapine FUMARATE [Seroquel 100 100 mg PO HS #30 tab 09/11/16 mg (*)] QUEtiapine FUMARATE [Seroquel 25 25 mg PO Q6 PRN #30 tab 09/11/16 mg (*)] traZODone [traZODONE 100MG (*)] 100 mg PO HS 09/12/16 LORazepam [Ativan (*)] 1 mg PO BID PRN #90 tab 09/13/16 Promethazine HCl [Phenergan 12.5mg 12.5 mg OH Q6 PRN #30 suppr 09/13/16 supp (*)] Tiotropium Inhaler [Spiriva 18 mcg IH DAILY 09/16/16 Handihaler] Ipratropium/Albuterol [Duoneb (*)] 3 ml IH Q6 PRN #60 deyvial 09/23/16 Albuterol [Proventil Inhaler HFA 1 - 2 puffs IH DAILY PRN 09/27/16 (*)] Metoprolol Succinate Xr [Toprol Xl 25 mg PO DAILY 09/27/16 25 mg (*)] predniSONE 20 mg PO DAILY 09/27/16 Medical Decision Making - Diagnostics EKG Interpretation: EKG interpreted by me shows sinus tachycardia normal interval and axis. QRS is normal there is no significant ST elevation or depression. No arrhythmia. Heart rate is 106 Imaging Results: Imaging Impressions Chest X-Ray 09/29/16 07:21 Impression: Stable chest with bronchitis/COPD. Chest x-ray interpreted by me shows no change from yesterday Procedures: IV normal saline, monitor. Ashlee tan ED Course/Re-evaluation: Re-evaluation 10:05 a.m.. Patient is stable. No respiratory distress. Speaking in full sentences Sepsis workup is negative. She was complaining of dysuria but urinalysis is normal. Her white blood cell count is improved since yesterday. Patient and I discussed treatment plan including criteria for return importance of follow-up and further evaluation. She expresses understanding and agreement Differential Diagnosis: I considered pneumonia, urinary tract infection, sepsis. This is all negative. Patient has chronic respiratory problems as well as anxiety. I think that anxiety is playing role in this. She has a home visit from [facility] this afternoon and she is encouraged to keep this - Data Points Laboratory Results: Laboratory Results 09/29/16 07:20 09/29/16 07:20 09/29/16 09/29/16 09/29/16 08:43 07:21 07:20 WBC 13.52 10^3/uL H D 10^3/uL (3.80-9.50) RBC 3.49 10^6/uL L 10^6/uL (4.18-5.33) Hgb 10.8 g/dL L g/dL (12.6-16.3) Hct 33.8 % L % (38.0-47.0) MCV 96.8 fL fL (81.5-99.8) MCH 30.9 pg pg (27.9-34.1) MCHC 32.0 g/dL L g/dL (32.4-36.7) RDW 13.5 % % (11.5-15.2) Plt Count 291 10^3/uL 10^3/uL (150-400) MPV 9.3 fL fL (8.7-11.7) Neut % (Auto) 69.5 % % (39.3-74.2) Lymph % (Auto) 21.5 % % (15.0-45.0) [place] % (Auto) 5.9 % % (4.5-13.0) Eos % (Auto) 1.0 % % (0.6-7.6) Baso % (Auto) 0.4 % % (0.3-1.7) Nucleat RBC Rel Count 0.0 % % (0.0-0.2) Absolute Neuts (auto) 9.38 10^3/uL H 10^3/uL (1.70-6.50) Absolute Lymphs (auto) 2.91 10^3/uL 10^3/uL (1.00-3.00) Absolute Monos (auto) 0.80 10^3/uL 10^3/uL (0.30-0.80) Absolute Eos (auto) 0.14 10^3/uL 10^3/uL (0.03-0.40) Absolute Basos (auto) 0.06 10^3/uL 10^3/uL (0.02-0.10) Absolute Nucleated RBC 0.00 10^3/uL 10^3/uL (0-0.01) Immature Gran % 1.7 % H % (0.0-1.1) Immature Gran # 0.23 10^3/uL H 10^3/uL (0.00-0.10) PT Pending INR Pending APTT 26.9 SEC SEC (23.0-38.0) VBG Lactic Acid Sodium Potassium Chloride Carbon Dioxide Anion Gap BUN Creatinine Estimated GFR Glucose Calcium Total Bilirubin Troponin I NT-Pro-B Natriuret Pep Urine Color YELLOW Urine Appearance CLEAR Urine pH 5.0 (5.0-7.5) Ur Specific [place] 1.011 (1.002-1.030) Urine Protein NEGATIVE (NEGATIVE) Urine Ketones NEGATIVE (NEGATIVE) Urine Blood NEGATIVE (NEGATIVE) Urine Nitrate NEGATIVE (NEGATIVE) Urine Bilirubin NEGATIVE (NEGATIVE) Urine Urobilinogen NEGATIVE EU EU (0.2-1.0) Ur Leukocyte Esterase NEGATIVE (NEGATIVE) Urine Glucose NEGATIVE (NEGATIVE) 09/29/16 09/29/16 07:20 07:20 WBC RBC Hgb Hct MCV MCH MCHC RDW Plt Count MPV Neut % (Auto) Lymph % (Auto) [place] % (Auto) Eos % (Auto) Baso % (Auto) Nucleat RBC Rel Count Absolute Neuts (auto) Absolute Lymphs (auto) Absolute Monos (auto) Absolute Eos (auto) Absolute Basos (auto) Absolute Nucleated RBC Immature Gran % Immature Gran # PT INR APTT VBG Lactic Acid 1.9 mmol/L mmol/L (0.7-2.1) Sodium 141 mEq/L mEq/L (134-144) Potassium 3.7 mEq/L mEq/L (3.5-5.2) Chloride 103 mEq/L mEq/L (97-110) Carbon Dioxide 28 mEq/l mEq/l (22-31) Anion Gap 10 mEq/L mEq/L (8-16) BUN 14 mg/dL mg/dL (7-23) Creatinine 0.9 mg/dL mg/dL (0.6-1.0) Estimated GFR > 60 Glucose 156 mg/dL H mg/dL (70-100) Calcium 9.0 mg/dL mg/dL (8.5-10.4) Total Bilirubin 0.6 mg/dL mg/dL (0.1-1.4) Troponin I < 0.012 ng/mL ng/mL (0-0.034) NT-Pro-B Natriuret Pep 589 pg/mL H pg/mL (0-125) Urine Color Urine Appearance Urine pH Ur Specific [place] Urine Protein Urine Ketones Urine Blood Urine Nitrate Urine Bilirubin Urine Urobilinogen Ur Leukocyte Esterase Urine Glucose Medications Given: Discontinued Medications Acetaminophen (Tylenol) 1,000 mg PO EDNOW ONE Stop: 09/29/16 08:29 Last Admin: 09/29/16 08:35 Dose: 1,000 mg Albuterol/Ipratropium (Duoneb) 3 ml IH EDNOW ONE Stop: 09/29/16 07:21 Last Admin: 09/29/16 07:36 Dose: 3 ml Promethazine HCl (Phenergan) 6.25 mg IVP EDNOW ONE Stop: 09/29/16 07:37 Last Admin: 09/29/16 07:43 Dose: 6.25 mg Departure - Departure Disposition: Home, Routine, Self-Care Clinical Impression: Acute bronchitis Qualifiers: Bronchitis organism: unspecified organism Qualified Code(s): J20.9 - Acute bronchitis, unspecified Condition: Good Instructions: COPD (Chronic Obstructive Pulmonary Disease) (ED) Additional Instructions: Continue regular medications. [facility]. Return for worsening symptoms Referrals: NEHEMIAH LOPEZ [Other] - As per Instructions [facility] [Outside] - 1 day without fail
--- NOTE | 2016-09-29 07:21 | CPEKG ---
Heart Rate: 106 RR Interval: 566 P-R Interval: 128 QRSD Interval: 82 QT Interval: 320 QTC Interval: 425 P Edison: 71 QRS Edison: 32 T Wave Edison: 68 EKG Severity - OTHERWISE NORMAL ECG - EKG Impression: SINUS TACHYCARDIA Electronically Signed By: Deandre Jansen 29-Sep-2016 16:14:00
[2016-09-29 07:36] LABS: % IMMATURE GRANULYOCYTES 1.7 % (0.0-1.1); ABSOLUTE IMMATURE GRANULOCYTES 0.23 10^3/uL (0.00-0.10); ADD DIFF? NO; ADD MORPH? NO; ADD SCAN? NO; ATYPICAL LYMPHOCYTE FLAG 0 (0-99); FRAGMENT RBC FLAG 0 (0-99); HEMATOCRIT 33.8 % (38.0-47.0); HEMOGLOBIN 10.8 g/dL (12.6-16.3); LEFT SHIFT FLG 10 (0-99); LIPEMIA HEMOLYSIS FLAG 80 (0-99); MEAN CELL HEMOGLOBIN 30.9 pg (27.9-34.1); MEAN CELL VOLUME 96.8 fL (81.5-99.8); MEAN PLATELET VOLUME 9.3 fL (8.7-11.7); PLATELET CLUMPS FLAG 0 (0-99); PLATELET COUNT 291 10^3/uL (150-400); RED BLOOD CELL COUNT 3.49 10^6/uL (4.18-5.33); RED CELL DISTRIBUTION WIDTH 13.5 % (11.5-15.2)
[2016-09-29] MEDS ORDERED: PROMETHAZINE HCL 25 MG/ML INJ IVP ONE (07:36)
[2016-09-29 07:43] LABS: ANION GAP 10 mEq/L (8-16); BILIRUBIN,TOTAL 0.6 mg/dL (0.1-1.4); CARBON DIOXIDE 28 mEq/l (22-31); CHLORIDE 103 mEq/L (97-110); CREATININE 0.9 mg/dL (0.6-1.0); GLOMERULAR FILTRATION RATE > 60; GLUCOSE 156 mg/dL (70-100); POTASSIUM 3.7 mEq/L (3.5-5.2); SODIUM 141 mEq/L (134-144)
[2016-09-29 07:55] LABS: TROPONIN I < 0.012 ng/mL (0-0.034)
[2016-09-29] MEDS ORDERED: ACETAMINOPHEN 500 MG TAB PO ONE (08:28)
[2016-09-29 08:53] LABS: COLOR YELLOW; LEUKOCYTE ESTERASE,URINE NEGATIVE (NEGATIVE); NITRITE,URINE NEGATIVE (NEGATIVE)
[2016-09-29 09:40] LABS: APTT 26.9 SEC (23.0-38.0)
[2016-09-29 10:06] LABS: INR 0.87 (0.83-1.16); PROTIME(PATIENT) 11.7 SEC (12.0-15.0)
[2016-09-29 11:16] VITALS: BP 117/79; PULSE 100; RESP 16; TEMP 99.7; O2SAT 95
== END 2016-09-29 11:16 | disposition home or self-care (01) ==
LOC: EDUNIT#
DX: J20.9 Acute bronchitis, unspecified (principal); J44.9 Chronic obstructive pulmonary disease, unspecified; I25.10 Atherosclerotic heart disease of native coronary artery without angina pectoris; I25.2 Old myocardial infarction; Z87.891 Personal history of nicotine dependence
CPT/HCPCS: 96374; J2550